=== PATIENT | male | born 1975 | race Two or more races ===

== ENCOUNTER 2017-10-28 11:23 | Inpatient (IN) | payer OTHER ==
[2017-10-28 12:07] VITALS: BMI 25.0
--- NOTE | 2017-10-28 17:51 | HP ---
CIWA Score - CIWA Score Nausea/Vomitin-Mild Nausea/No Vomiting Muscle Tremors: 2 Anxiety: 2 Agitation: 0-Normal Activity Paroxysmal Sweats: 1-Minimal Palms Moist Orientation: 2-Disoriented Date<2 days Tacttile Disturbances: 2-Mild Itch/Numbness/Burn Auditory Disturbances: 0-None Visual Disturbances: 0-None Headache: 2-Mild CIWA-Ar Total Score: 12 Admission ROS S - HPI Chief Complaint: Benzodiazepine/sedative withdrawal symptoms. Allergies/Adverse Reactions: Allergies Allergy/AdvReac Type Severity Reaction Status Date / Time No Known Allergies Allergy Verified 10/28/17 17:11 History of Present Illness: Patient presents with benzodiazepine/sedative withdrawal symptoms. Patient started taking non-prescribed Xanax at age 14. States he takes up to 4mg of Xanax daily. Also smokes Marijuana/K2 1-2 blunts daily and began smoking at age 14. Currently in [facility]. Reports taking MTD 80mg daily. RN verification pending. Patient has history of Hepatitis C (currently on treatment). States he will call to bring Hep C medication. Denies history of seizures from Xanax withdrawal. Unsure of last dose of Xanax. Denies SI/HI and suicide attempts. Exam Limitations: Altered Mental Status - Ebola screening Have you traveled outside of the country in the last 21 days: No Have you had contact with anyone from an Ebola affected area: No Have you been sick,other than usual withdrawal symptoms: No Do you have a fever: No - Review of Systems Constitutional: Night Sweats, Changes in sleep, Unexplained wgt Loss EENT: reports: No Symptoms Reported Respiratory: reports: No Symptoms reported Cardiac: reports: No Symptoms Reported GI: reports: Nausea, Poor Fluid Intake, Abdominal cramping : reports: No Symptoms Reported Musculoskeletal: reports: Back Pain, Muscle Pain Integumentary: reports: Sweating Neuro: reports: Headache, Numbness, Tingling, Tremors Endocrine: reports: Unexplained Weight Loss Hematology: reports: No Symptoms Reported Psychiatric: reports: Anxious, Depressed Patient History - Patient Medical History Hx Anemia: No Hx Asthma: Yes Hx Chronic Obstructive Pulmonary Disease (COPD): No Hx Cancer: No Hx Cardiac Disorders: No Hx Congestive Heart Failure: No Hx Hypertension: No Hx Hypercholesterolemia: No Hx Pacemaker: No HX Cerebrovascular Accident: No Hx Seizures: No Hx Dementia: No Hx Diabetes: No Hx Gastrointestinal Disorders: No Hx Liver Disease: No Hx Genitourinary Disorders: No Hx Sexually Transmitted Disorders: No Hx Renal Disease (ESRD): No Hx Thyroid Disease: No Hx Human Immunodeficiency Virus (HIV): No Hx Hepatitis C: Yes (currently on treatment) Hx Depression: Yes Hx Suicide Attempt: No (denies SI/HI) Hx Bipolar Disorder: No Hx Schizophrenia: No - Patient Surgical History Past Surgical History: No Hx Neurologic Surgery: No Hx Cataract Extraction: No Hx Cardiac Surgery: No Hx Lung Surgery: No Hx Breast Surgery: No Hx Breast Biopsy: No Hx Abdominal Surgery: No Hx Appendectomy: No Hx Cholecystectomy: No Hx Genitourinary Surgery: No Hx Orthopedic Surgery: No Anesthesia Reaction: No - PPD History Previous Implant?: No PPD to be Administered?: Yes - Smoking Cessation Smoking history: Current every day smoker Have you smoked in the past 12 months: Yes Aproximately how many cigarettes per day: 20 Hx Chewing Tobacco Use: No Initiated information on smoking cessation: Yes 'Breaking Loose' booklet given: 10/28/17 - Substance & Tx. History Hx Alcohol Use: No Hx Substance Use: Yes Substance Use Type: Marijuana, Tranquilizers Hx Substance Use Treatment: Yes (2012) - Substances Abused Alprazolam (Xanax) Route: Oral Frequency: Daily Amount used: 3/2MG Age of first use: 18 Date of Last Use: 10/28/17 Marijuana/Hashish Route: Smoking Frequency: Daily Amount used: 2-3 BAGS Age of first use: 18 Date of Last Use: 10/28/17 K2 Route: Smoking Frequency: Daily Amount used: " i DONT kNOW " Age of first use: 32 Date of Last Use: 10/28/17 Family Disease History - Family Disease History Family History: Unable to Obtain Admission Physical Exam BHS - Vital Signs Vital Signs: Vital Signs - 24 hr 10/28/17 11:56 Temperature 97 F L Pulse Rate 60 Respiratory 19 Rate Blood Pressure 99/63 - Physical General Appearance: Yes: Disheveled, Thin, Tremorous, Sweating, Anxious HEENTM: Yes: EOMI, Hearing grossly Normal, Normal ENT Inspection, Normocephalic , Normal Voice, JENNI, Pharynx Normal Respiratory: Yes: Chest Non-Tender, Lungs Clear, Normal Breath Sounds, No Respiratory Distress, No Accessory Muscle Use Neck: Yes: No masses,lesions,Nodules, Supple, Trachea in good position Breast: Yes: Breast Exam Deferred Cardiology: Yes: Regular Rhythm, Regular Rate, S1, S2 Abdominal: Yes: Normal Bowel Sounds, Non Tender, Flat, Soft Genitourinary: Yes: Within Normal Limits Back: Yes: Muscle Spasm Musculoskeletal: Yes: full range of Motion, Back pain, Muscle Pain Extremities: Yes: Normal Inspection, Normal Range of Motion, Non-Tender, Tremors , Swelling Neurological: Yes: awning erector II-XII NML intact, Alert, Motor Strength 5/5, Disoriented , Depressed Affect Integumentary: Yes: Warm, Moist - Diagnostic (1) Sedative, hypnotic or anxiolytic abuse Current Visit: Yes Status: Acute (2) Asthma Current Visit: Yes Status: Chronic (3) Cannabis dependence Current Visit: Yes Status: Active (4) Hepatitis C carrier Current Visit: No Status: Chronic (5) Opioid dependence Current Visit: No Status: Chronic (6) Weight decreased Current Visit: Yes Status: Active Cleared for Admission [facility] - Detox or Rehab [facility] Level of Care: Medically Managed Detox Regimen/Protocol: Valium [facility] Breath Alcohol Content Breath Alcohol Content: 0 Urine Drug Screen - Results Drug Screen Negative: No Urine Drug Screen Results: THC-Marijuana, BZO-Benzodiazepines, MTD-Methadone
[2017-10-28] MEDS ORDERED: MAGNESIUM HYDROX 2400MG/30ML ORAL SUSPENSION 30 ML CUP PO PRN (18:03)
[2017-10-28] MEDS ORDERED: hydrOXYzine PAMOATE 50 MG CAPSULE (FP) PO PRN (18:03)
[2017-10-28] MEDS ORDERED: LOPERAMIDE HCL 2 MG CAPSULE PO PRN (18:03)
[2017-10-28] MEDS ORDERED: ACETAMINOPHEN 325 MG TABLET (FP) PO PRN (18:03)
[2017-10-28] MEDS ORDERED: P-EPHED 60MG/TRIPROLIDI 2.5MG TABLET PO PRN (18:03)
[2017-10-28] MEDS ORDERED: IBUPROFEN 400 MG TABLET (FP) PO PRN (18:03)
[2017-10-28] MEDS ORDERED: MENTHOL/PHENOL 1 EACH UD MM PRN (18:03)
[2017-10-28] MEDS ORDERED: MAGNESIUM CITRATE 300 ML BOTTLE PO PRN (18:03)
[2017-10-28] MEDS ORDERED: MAG HYDROX/AL HYDROX/SIMETH 30 ML UNIT-DOSE CUP PO PRN (18:03)
[2017-10-28] MEDS ORDERED: guaiFENesin/D-METHORPHAN HB 10 ML UNIT-DOSE CUPS PO PRN (18:03)
[2017-10-28] MEDS ORDERED: NICOTINE POLACRILEX 2 MG GUM BC PRN (18:03)
[2017-10-28] MEDS ORDERED: ALBUTEROL SO4 18 GM HFA INHALER IH PRN (18:04)
[2017-10-28] MEDS ORDERED: diazePAM 5 MG TABLET PO ONE (18:45)
[2017-10-28] MEDS: THIAMINE HCL 100 MG TABLET (FP) PO SCH (22:20)
[2017-10-28] MEDS: MELATONIN 5 MG TABLETS PO PRN (22:21)
[2017-10-28] MEDS: diazePAM 5 MG TABLET PO SCH (22:21)
[2017-10-29 01:16] LABS: URINE APPEARANCE TURBID; URINE BLOOD NEGATIVE (NEGATIVE); URINE COLOR YELLOW; URINE GLUCOSE (UA) NEGATIVE (NEGATIVE); URINE KETONE TRACE (NEGATIVE); URINE LEUK ESTERASE NEGATIVE (NEGATIVE); URINE NITRITE NEGATIVE (NEGATIVE); URINE UROBILINOGEN 4.0 E.U/dl mg/dL (0.2-1.0)
[2017-10-29 01:25] LABS: URINE PROTEIN 1+ (NEGATIVE)
[2017-10-29 01:38] LABS: URINE BACTERIA MANY /hpf (NONE SEEN); URINE MUCUS MANY
[2017-10-29 01:52] LABS: AMORP URATES MODERATE /hpf (NONE SEEN)
[2017-10-29] MEDS: diazePAM 5 MG TABLET PO SCH ×3 (06:55→22:17)
[2017-10-29 10:09] LABS: HEMATOCRIT 45.6 % (35.4-49); HEMOGLOBIN 14.9 GM/dL (11.7-16.9); MCH 30.3 pg (25.7-33.7); MCHC 32.6 g/dl (32.0-35.9); MEAN CELL VOLUME 92.9 fl (80-96); MEAN PLT VOLUME 9.4 fl (7.5-11.1); PLATELET COUNT 177 K/MM3 (134-434); RBC 4.91 M/mm3 (4.00-5.60); RDW 14.1 % (11.9-15.9)
[2017-10-29] MEDS: NICOTINE 21 MG/24 HOURS TOPICAL PATCH TD SCH (10:13)
[2017-10-29] MEDS: diazePAM 5 MG TABLET PO PRN ×2 (10:13→17:21)
[2017-10-29] MEDS: METHADONE HCL 40 MG DISPERSABLE TABLET PO SCH (10:13)
[2017-10-29] MEDS: PRENATAL VITAMINS W/ FOLIC ACID TABLET (FP) PO SCH (10:13)
[2017-10-29 10:24] LABS: BLOOD UREA NITROGEN 10 mg/dL (7-18)
[2017-10-29 10:42] LABS: ALBUMIN 2.6 g/dl (3.4-5.0); ALK PHOS 71 U/L (45-117); ANION GAP 3 (8-16); BILIRUBIN,TOTAL 0.4 mg/dL (0.2-1.0); CALCIUM 8.5 mg/dL (8.5-10.1); CHLORIDE 106 mmol/L (98-107); CO2 33 mmol/L (21-32); CREATININE 0.9 mg/dL (0.7-1.3); GLUCOSE,RANDOM 79 mg/dL (74-106); POTASSIUM 4.2 mmol/L (3.5-5.1); SGOT/AST 28 U/L (15-37); SGPT/ALT 36 U/L (12-78); SODIUM 142 mmol/L (136-145); TOT PROT 6.3 g/dl (6.4-8.2)
--- NOTE | 2017-10-29 10:49 | CONSULT ---
[facility] Psychiatric Consult - Data Date of interview: 10/29/17 Admission source: [facility] Identifying data: Patient is a 42 year old single male, without kids, unemployed , homeless, and not receiving financial assistance. This is patient's first admission to [facility]. Patient admitted to for benzodiazepine dependence. Substance Abuse History: Smoking Cessation. Smoking history: Current every day smoker. Have you smoked in the past 12 months: Yes. Aproximately how many cigarettes per day: 20. Hx Chewing Tobacco Use: No. Initiated information on smoking cessation: Yes. 'Breaking Loose' booklet given: 10/28/17. - Substance & Tx. History. Hx Alcohol Use: No. Hx Substance Use: Yes. Substance Use Type : Marijuana, Tranquilizers. Hx Substance Use Treatment: Yes (2012). - Substances Abused. Alprazolam (Xanax). Route: Oral. Frequency: Daily. Amount used: 3/2MG. Age of first use: 18. Date of Last Use: 10/28/17. Marijuana/Hashish. Route: Smoking. Frequency: Daily. Amount used: 2-3 BAGS. Age of first use: 18. Date of Last Use: 10/28/17. K2. Route: Smoking. Frequency: Daily. Amount used: " i DONT kNOW ". Age of first use: 32. Date of Last Use: 10/28/17 Medical History: Asthma, Hep C (In treatment) Psychiatric History: Patient irritable. Pt. reports several psychiatric hospitalizations, most recently two days ago at [facility]. States he was discharged after two days and was not prescribed medications. Pt. denies h/o OPD. Pt. is unreliable. Pharmacy claims reviewed and noted patient was given a prescription of risperdal 2mg and zoloft 50mg. Pt. made aware of his recent prescription then stated " i do not take risperdal or other medication." Pt. agreeable to accepting olive caban. Pt. reports one suicide attempt many years ago. Pt. refusing to elaborate. Pt. currently denies suicidal and homicidal ideation. Physical/Sexual Abuse/Trauma History: Denies. Mental Status Exam - Mental Status Exam Alert and Oriented to: Time, Place, Person Cognitive Function: Good Patient Appearance: Unkempt, Disheveled Mood: Irritable Affect: Mood Congruent Patient Behavior: Uncooperative, Guarded Speech Pattern: Delayed Voice Loudness: Moderately Soft/Quiet Thought Process: Goal Oriented Thought Disorder: Not Present Hallucinations: Denies Suicidal Ideation: Denies Homicidal Ideation: Denies Insight/Judgement: Poor Sleep: Fair Appetite: Fair Muscle strength/Tone: Normal Gait/Station: Normal Psychiatric Findings - Problem List ([place] 1, 2,3) (1) Substance induced mood disorder Current Visit: Yes Status: Acute (2) Cannabis dependence Current Visit: Yes Status: Chronic (3) Sedative, hypnotic or anxiolytic abuse Current Visit: Yes Status: Acute (4) Opioid dependence Current Visit: Yes Status: Acute - Initial Treatment Plan Initial Treatment Plan: Psychoeducation provided. Detoxification provided. Seroquel 50mg qhs ordered. Benefits and side effects discussed. Verbal consent given. Will continue to monitor.
--- NOTE | 2017-10-29 12:03 | PN ---
[facility] CIWA - CIWA Score Nausea/Vomitin-No Nausea/No Vomiting Muscle Tremors: 3 Anxiety: 4-Mod. Anxious/Guarded Agitation: 1-Slight > Activity Paroxysmal Sweats: 3 Orientation: 4Disoriented Place/Person Tacttile Disturbances: 3-Moderate Itch/Numb/Burn Auditory Disturbances: 0-None Visual Disturbances: 0-None Headache: 0-None Present CIWA-Ar Total Score: 18 BHS Progress Note (SOAP) Subjective: Tremors, Interrupted Sleep, Sweating, Fatigue. Objective: PATIENT A & O X 2 (UNCERTAIN ABOUT CURRENT LOCATION). PATIENT OBSERVED AMBULATING ON UNIT. NO ACUTE DISTRESS. 10/29/17 12:02 Vital Signs Temperature 96.6 F L 10/29/17 09:37 Pulse Rate 59 L 10/29/17 09:37 Respiratory Rate 16 10/29/17 09:37 Blood Pressure 121/85 10/29/17 09:37 O2 Sat by Pulse Oximetry (%) Laboratory Tests 10/28/17 10/29/17 10/29/17 22:27 07:00 07:00 WBC 9.0 D RBC 4.91 Hgb 14.9 Hct 45.6 MCV 92.9 MCH 30.3 MCHC 32.6 RDW 14.1 Plt Count 177 MPV 9.4 Sodium 142 Potassium 4.2 Chloride 106 Carbon Dioxide 33 H Anion Gap 3 L BUN 10 D Creatinine 0.9 Creat Clearance w eGFR > 60 Random Glucose 79 D Calcium 8.5 Total Bilirubin 0.4 D AST 28 D ALT 36 D Alkaline Phosphatase 71 Total Protein 6.3 L D Albumin 2.6 L D Urine Color Yellow Urine Appearance Turbid Urine pH 5.0 Ur Specific [place] 1.034 Urine Protein 1+ H Urine Glucose (UA) Negative Urine Ketones Trace H Urine Blood Negative Urine Nitrite Negative Urine Bilirubin 2.0 Urine Urobilinogen 4.0 e.u/dl Ur Leukocyte Esterase Negative Urine WBC (Auto) None Urine RBC (Auto) None Amorphous Urates Moderate Urine Bacteria Many Urine Mucus Many HIV 1&2 Antibody Screen HIV P24 Antigen 10/29/17 07:00 WBC RBC Hgb Hct MCV MCH MCHC RDW Plt Count MPV Sodium Potassium Chloride Carbon Dioxide Anion Gap BUN Creatinine Creat Clearance w eGFR Random Glucose Calcium Total Bilirubin AST ALT Alkaline Phosphatase Total Protein Albumin Urine Color Urine Appearance Urine pH Ur Specific [place] Urine Protein Urine Glucose (UA) Urine Ketones Urine Blood Urine Nitrite Urine Bilirubin Urine Urobilinogen Ur Leukocyte Esterase Urine WBC (Auto) Urine RBC (Auto) Amorphous Urates Urine Bacteria Urine Mucus HIV 1&2 Antibody Screen Negative HIV P24 Antigen Negative LABS NOTED. RPR RESULT PENDING. 10/29/17 12:03 Assessment: 10/29/17 12:02 WITHDRAWAL SYMPTOMS. Plan: CONTINUE DETOX. INCREASE DAILY PO FLUID INTAKE.
--- NOTE | 2017-10-29 13:35 | EKG ---
Test Reason : Blood Pressure : / mmHG Vent. Rate : 054 BPM Atrial Rate : 054 BPM P-R Int : 128 ms QRS Dur : 102 ms QT Int : 460 ms P-R-T Axes : 069 044 034 degrees QTc Int : 436 ms SINUS BRADYCARDIA RSR' OR QR PATTERN IN V1 SUGGESTS RIGHT VENTRICULAR CONDUCTION DELAY BORDERLINE ECG NO PREVIOUS ECGS AVAILABLE Confirmed by MELISSA WALTER MD ([id number]) on 10/29/2017 1:35:04 PM Referred By: Confirmed By:MELISSA WALTER MD
[2017-10-29] MEDS: PATIENT'S OWN MEDICATION (NON-FORMULARY) (Glecaprevir/Pibrentasvir [Mavyret 100-40 Mg Tabl PO SCH (18:46)
[2017-10-29] MEDS: QUEtiapine FUMARATE 50 MG TABLET PO SCH (22:17)
[2017-10-29] MEDS: THIAMINE HCL 100 MG TABLET (FP) PO SCH (22:17)
[2017-10-30] MEDS: diazePAM 5 MG TABLET PO PRN (06:59)
[2017-10-30] MEDS: METHADONE HCL 40 MG DISPERSABLE TABLET PO SCH (06:59)
[2017-10-30] MEDS: PRENATAL VITAMINS W/ FOLIC ACID TABLET (FP) PO SCH (10:04)
[2017-10-30] MEDS: PATIENT'S OWN MEDICATION (NON-FORMULARY) (Glecaprevir/Pibrentasvir [Mavyret 100-40 Mg Tabl PO SCH (10:04)
[2017-10-30] MEDS: NICOTINE 21 MG/24 HOURS TOPICAL PATCH TD SCH (10:04)
[2017-10-30] MEDS: diazePAM 5 MG TABLET PO SCH ×2 (10:04→22:21)
--- NOTE | 2017-10-30 12:15 | PN ---
[facility] CIWA - CIWA Score Nausea/Vomitin-No Nausea/No Vomiting Muscle Tremors: None Anxiety: 4-Mod. Anxious/Guarded Agitation: 3 Paroxysmal Sweats: 3 Orientation: 0-Oriented Tacttile Disturbances: 2-Mild Itch/Numbness/Burn Auditory Disturbances: 1-Very Mild Visual Disturbances: 2-Mild Sensitivity Headache: 0-None Present CIWA-Ar Total Score: 15 S Progress Note (SOAP) Subjective: Fatigue, Body Aches, Anxious. Objective: PATIENT A & O X 1 (UNCERTAIN ABOUT CURRENT DAY / DATE AND ABOUT CURRENT LOCATION ). PATIENT OBSERVED AMBULATING ON UNIT. NO ACUTE DISTRESS. 10/30/17 12:15 Vital Signs Temperature 98.4 F 10/30/17 09:02 Pulse Rate 58 L 10/30/17 09:02 Respiratory Rate 18 10/30/17 09:02 Blood Pressure 90/64 10/30/17 09:02 O2 Sat by Pulse Oximetry (%) Laboratory Tests 10/28/17 10/29/17 10/29/17 22:27 07:00 07:00 WBC 9.0 D RBC 4.91 Hgb 14.9 Hct 45.6 MCV 92.9 MCH 30.3 MCHC 32.6 RDW 14.1 Plt Count 177 MPV 9.4 Sodium 142 Potassium 4.2 Chloride 106 Carbon Dioxide 33 H Anion Gap 3 L BUN 10 D Creatinine 0.9 Creat Clearance w eGFR > 60 Random Glucose 79 D Calcium 8.5 Total Bilirubin 0.4 D AST 28 D ALT 36 D Alkaline Phosphatase 71 Total Protein 6.3 L D Albumin 2.6 L D Urine Color Yellow Urine Appearance Turbid Urine pH 5.0 Ur Specific [place] 1.034 Urine Protein 1+ H Urine Glucose (UA) Negative Urine Ketones Trace H Urine Blood Negative Urine Nitrite Negative Urine Bilirubin 2.0 Urine Urobilinogen 4.0 e.u/dl Ur Leukocyte Esterase Negative Urine WBC (Auto) None Urine RBC (Auto) None Amorphous Urates Moderate Urine Bacteria Many Urine Mucus Many RPR Titer HIV 1&2 Antibody Screen HIV P24 Antigen 10/29/17 10/29/17 07:00 07:00 WBC RBC Hgb Hct MCV MCH MCHC RDW Plt Count MPV Sodium Potassium Chloride Carbon Dioxide Anion Gap BUN Creatinine Creat Clearance w eGFR Random Glucose Calcium Total Bilirubin AST ALT Alkaline Phosphatase Total Protein Albumin Urine Color Urine Appearance Urine pH Ur Specific [place] Urine Protein Urine Glucose (UA) Urine Ketones Urine Blood Urine Nitrite Urine Bilirubin Urine Urobilinogen Ur Leukocyte Esterase Urine WBC (Auto) Urine RBC (Auto) Amorphous Urates Urine Bacteria Urine Mucus RPR Titer Nonreactive HIV 1&2 Antibody Screen Negative HIV P24 Antigen Negative LABS NOTED. Assessment: 10/30/17 12:17 WITHDRAWAL SYMPTOMS. Plan: CONTINUE DETOX.
[2017-10-30] MEDS: QUEtiapine FUMARATE 50 MG TABLET PO SCH (22:21)
[2017-10-30] MEDS: THIAMINE HCL 100 MG TABLET (FP) PO SCH (22:21)
[2017-10-31] MEDS: METHADONE HCL 40 MG DISPERSABLE TABLET PO SCH (05:13)
[2017-10-31] MEDS: diazePAM 5 MG TABLET PO PRN (06:18)
[2017-10-31] MEDS: diazePAM 5 MG TABLET PO SCH ×2 (10:14→22:06)
[2017-10-31] MEDS: NICOTINE 21 MG/24 HOURS TOPICAL PATCH TD SCH (10:14)
[2017-10-31] MEDS: PRENATAL VITAMINS W/ FOLIC ACID TABLET (FP) PO SCH (10:14)
[2017-10-31] MEDS: PATIENT'S OWN MEDICATION (NON-FORMULARY) (Glecaprevir/Pibrentasvir [Mavyret 100-40 Mg Tabl PO SCH (10:14)
--- NOTE | 2017-10-31 14:20 | PN ---
BHS Progress Note (SOAP) Subjective: Sweating, Fatigue, Anxious. Objective: PATIENT A & O X 3, OBSERVED AMBULATING ON UNIT. NO ACUTE DISTRESS. 10/31/17 14:18 Vital Signs Temperature 97 F L 10/31/17 13:49 Pulse Rate 70 10/31/17 13:49 Respiratory Rate 16 10/31/17 13:49 Blood Pressure 97/65 10/31/17 13:49 O2 Sat by Pulse Oximetry (%) Laboratory Tests 10/28/17 10/29/17 10/29/17 22:27 07:00 07:00 WBC 9.0 D RBC 4.91 Hgb 14.9 Hct 45.6 MCV 92.9 MCH 30.3 MCHC 32.6 RDW 14.1 Plt Count 177 MPV 9.4 Sodium 142 Potassium 4.2 Chloride 106 Carbon Dioxide 33 H Anion Gap 3 L BUN 10 D Creatinine 0.9 Creat Clearance w eGFR > 60 Random Glucose 79 D Calcium 8.5 Total Bilirubin 0.4 D AST 28 D ALT 36 D Alkaline Phosphatase 71 Total Protein 6.3 L D Albumin 2.6 L D Urine Color Yellow Urine Appearance Turbid Urine pH 5.0 Ur Specific [place] 1.034 Urine Protein 1+ H Urine Glucose (UA) Negative Urine Ketones Trace H Urine Blood Negative Urine Nitrite Negative Urine Bilirubin 2.0 Urine Urobilinogen 4.0 e.u/dl Ur Leukocyte Esterase Negative Urine WBC (Auto) None Urine RBC (Auto) None Amorphous Urates Moderate Urine Bacteria Many Urine Mucus Many RPR Titer HIV 1&2 Antibody Screen HIV P24 Antigen 10/29/17 10/29/17 07:00 07:00 WBC RBC Hgb Hct MCV MCH MCHC RDW Plt Count MPV Sodium Potassium Chloride Carbon Dioxide Anion Gap BUN Creatinine Creat Clearance w eGFR Random Glucose Calcium Total Bilirubin AST ALT Alkaline Phosphatase Total Protein Albumin Urine Color Urine Appearance Urine pH Ur Specific [place] Urine Protein Urine Glucose (UA) Urine Ketones Urine Blood Urine Nitrite Urine Bilirubin Urine Urobilinogen Ur Leukocyte Esterase Urine WBC (Auto) Urine RBC (Auto) Amorphous Urates Urine Bacteria Urine Mucus RPR Titer Nonreactive HIV 1&2 Antibody Screen Negative HIV P24 Antigen Negative LABS NOTED. Assessment: 10/31/17 14:18 WITHDRAWAL SYMPTOMS. Plan: CONTINUE DETOX. INCREASE DAILY PO FLUID INTAKE. ENCOURAGE AMBULATION.
[2017-10-31] MEDS: QUEtiapine FUMARATE 50 MG TABLET PO SCH (22:06)
[2017-10-31] MEDS: MELATONIN 5 MG TABLETS PO PRN (22:07)
[2017-10-31] MEDS: THIAMINE HCL 100 MG TABLET (FP) PO SCH (22:07)
[2017-11-01] MEDS: METHADONE HCL 40 MG DISPERSABLE TABLET PO SCH (06:14)
[2017-11-01 09:29] VITALS: BP 104/67; PULSE 70; TEMP 96.7
[2017-11-01] MEDS ORDERED: diazePAM 5 MG TABLET PO SCH (10:00)
[2017-11-01] MEDS: PRENATAL VITAMINS W/ FOLIC ACID TABLET (FP) PO SCH (10:03)
[2017-11-01] MEDS: PATIENT'S OWN MEDICATION (NON-FORMULARY) (Glecaprevir/Pibrentasvir [Mavyret 100-40 Mg Tabl PO SCH (10:03)
[2017-11-01] MEDS: NICOTINE 21 MG/24 HOURS TOPICAL PATCH TD SCH (10:04)
--- NOTE | 2017-11-01 13:04 | PN ---
S Progress Note (SOAP) Subjective: Patient reports that he feels somewhat anxious, but denies any other Detox symptoms at this time. Objective: PATIENT A & O X 3, OBSERVED AMBULATING ON UNIT. NO ACUTE DISTRESS. 11/01/17 13:03 Vital Signs Temperature 96.7 F L 11/01/17 09:28 Pulse Rate 70 11/01/17 09:28 Respiratory Rate 18 11/01/17 09:28 Blood Pressure 104/67 11/01/17 09:28 O2 Sat by Pulse Oximetry (%) Laboratory Tests 10/28/17 10/29/17 10/29/17 22:27 07:00 07:00 WBC 9.0 D RBC 4.91 Hgb 14.9 Hct 45.6 MCV 92.9 MCH 30.3 MCHC 32.6 RDW 14.1 Plt Count 177 MPV 9.4 Sodium 142 Potassium 4.2 Chloride 106 Carbon Dioxide 33 H Anion Gap 3 L BUN 10 D Creatinine 0.9 Creat Clearance w eGFR > 60 Random Glucose 79 D Calcium 8.5 Total Bilirubin 0.4 D AST 28 D ALT 36 D Alkaline Phosphatase 71 Total Protein 6.3 L D Albumin 2.6 L D Urine Color Yellow Urine Appearance Turbid Urine pH 5.0 Ur Specific [place] 1.034 Urine Protein 1+ H Urine Glucose (UA) Negative Urine Ketones Trace H Urine Blood Negative Urine Nitrite Negative Urine Bilirubin 2.0 Urine Urobilinogen 4.0 e.u/dl Ur Leukocyte Esterase Negative Urine WBC (Auto) None Urine RBC (Auto) None Amorphous Urates Moderate Urine Bacteria Many Urine Mucus Many RPR Titer HIV 1&2 Antibody Screen HIV P24 Antigen 10/29/17 10/29/17 07:00 07:00 WBC RBC Hgb Hct MCV MCH MCHC RDW Plt Count MPV Sodium Potassium Chloride Carbon Dioxide Anion Gap BUN Creatinine Creat Clearance w eGFR Random Glucose Calcium Total Bilirubin AST ALT Alkaline Phosphatase Total Protein Albumin Urine Color Urine Appearance Urine pH Ur Specific [place] Urine Protein Urine Glucose (UA) Urine Ketones Urine Blood Urine Nitrite Urine Bilirubin Urine Urobilinogen Ur Leukocyte Esterase Urine WBC (Auto) Urine RBC (Auto) Amorphous Urates Urine Bacteria Urine Mucus RPR Titer Nonreactive HIV 1&2 Antibody Screen Negative HIV P24 Antigen Negative LABS NOTED. Assessment: 11/01/17 13:03 COMPLETION OF DETOX REGIMEN. Plan: PATIENT SCHEDULED FOR DISCHARGE FROM DETOX UNIT TODAY. PATIENT SCHEDULED TO GO ON TO [facility] ([place]) FOR AFTERCARE.
--- NOTE | 2017-11-01 13:11 | DS ---
[facility] Detox Discharge Summary Admission Date: 10/28/17 Discharge Date: 11/01/17 - History Present History: Cannabis Dependence, Opioid Dependence, Sedative Dependence Additional Comments: PATIENT GOING ON TO [facility] ([place]) FOR AFTERCARE. PATIENT WAS DISCHARGED FROM DETOX UNIT TO BE TAKEN OVER TO REHAB IN STABLE MEDICAL CONDITION. Pertinent Past History: Asthma, Hep C, Depression, Weight Loss. - Physical Exam Results Vital Signs: Vital Signs Temperature 96.7 F L 11/01/17 09:28 Pulse Rate 70 11/01/17 09:28 Respiratory Rate 18 11/01/17 09:28 Blood Pressure 104/67 11/01/17 09:28 O2 Sat by Pulse Oximetry (%) Pertinent Admission Physical Exam Findings: WITHDRAWAL SYMPTOMS. Laboratory Tests 10/28/17 10/29/17 10/29/17 22:27 07:00 07:00 WBC 9.0 D RBC 4.91 Hgb 14.9 Hct 45.6 MCV 92.9 MCH 30.3 MCHC 32.6 RDW 14.1 Plt Count 177 MPV 9.4 Sodium 142 Potassium 4.2 Chloride 106 Carbon Dioxide 33 H Anion Gap 3 L BUN 10 D Creatinine 0.9 Creat Clearance w eGFR > 60 Random Glucose 79 D Calcium 8.5 Total Bilirubin 0.4 D AST 28 D ALT 36 D Alkaline Phosphatase 71 Total Protein 6.3 L D Albumin 2.6 L D Urine Color Yellow Urine Appearance Turbid Urine pH 5.0 Ur Specific [place] 1.034 Urine Protein 1+ H Urine Glucose (UA) Negative Urine Ketones Trace H Urine Blood Negative Urine Nitrite Negative Urine Bilirubin 2.0 Urine Urobilinogen 4.0 e.u/dl Ur Leukocyte Esterase Negative Urine WBC (Auto) None Urine RBC (Auto) None Amorphous Urates Moderate Urine Bacteria Many Urine Mucus Many RPR Titer HIV 1&2 Antibody Screen HIV P24 Antigen 10/29/17 10/29/17 07:00 07:00 WBC RBC Hgb Hct MCV MCH MCHC RDW Plt Count MPV Sodium Potassium Chloride Carbon Dioxide Anion Gap BUN Creatinine Creat Clearance w eGFR Random Glucose Calcium Total Bilirubin AST ALT Alkaline Phosphatase Total Protein Albumin Urine Color Urine Appearance Urine pH Ur Specific [place] Urine Protein Urine Glucose (UA) Urine Ketones Urine Blood Urine Nitrite Urine Bilirubin Urine Urobilinogen Ur Leukocyte Esterase Urine WBC (Auto) Urine RBC (Auto) Amorphous Urates Urine Bacteria Urine Mucus RPR Titer Nonreactive HIV 1&2 Antibody Screen Negative HIV P24 Antigen Negative LABS NOTED. - Treatment Hospital Course: Detox Protocol Followed, Detoxed Safely, Responded well, Discharged Condition Good, Rehab Referral Accepted Patient has Accepted a Rehab Referral to: [facility] ([place], [place] . - Medication Discharge Medications: Ambulatory Orders Albuterol Sulfate Inhaler - [Ventolin Hfa *Inhaler*] 2 inh IH Q4H PRN 11/27/12 Glecaprevir/Pibrentasvir [Mavyret 100-40 mg Tablet] 3 tab PO DAILY 10/29/17 - Diagnosis (1) Uncomplicated opioid dependence Current Visit: Yes Status: Chronic (2) Cannabis dependence Current Visit: Yes Status: Chronic (3) Weight decreased Current Visit: Yes Status: Active (4) Sedative, hypnotic or anxiolytic abuse Current Visit: Yes Status: Acute (5) Asthma Current Visit: Yes Status: Chronic (6) Hepatitis C carrier Current Visit: Yes Status: Chronic (7) Substance induced mood disorder Current Visit: Yes Status: Acute - AMA Did Patient Leave Against Medical Advice: No
--- NOTE | 2017-11-01 22:49 | EKG ---
Test Reason : Blood Pressure : / mmHG Vent. Rate : 058 BPM Atrial Rate : 058 BPM P-R Int : 138 ms QRS Dur : 090 ms QT Int : 414 ms P-R-T Axes : 080 049 043 degrees QTc Int : 406 ms SINUS BRADYCARDIA WITH WITH SINUS ARRHYTHMIA OTHERWISE NORMAL ECG Confirmed by DIPTI LANE MD ([id number] on 11/01/2017 10:48:29 PM Referred By: Confirmed By:DIPTI LANE MD
== END 2017-11-01 13:25 | disposition other institution (70) | DRG 773 ==
LOC: YASAS 11:23 → Y3N 18:29
PROVIDERS: ADMIT Internal Medicine; ATTEND Internal Medicine
PROC: HZ2ZZZZ Detoxification Services for Substance Abuse Treatment (ICD-10-PCS; principal; 2017-10-28)
DX: F11.23 Opioid dependence with withdrawal (principal); F12.20 Cannabis dependence, uncomplicated; F13.10 Sedative, hypnotic or anxiolytic abuse, uncomplicated; F17.210 Nicotine dependence, cigarettes, uncomplicated; F19.24 Other psychoactive substance dependence with psychoactive substance-induced mood disorder; J45.909 Unspecified asthma, uncomplicated; B18.2 Chronic viral hepatitis C; Z87.898 Personal history of other specified conditions
CPT/HCPCS: 36415; 71046-TC-FY; 80053; 81003; 81015; 85027; 86593; 87389; 93005; 93010

== ENCOUNTER 2017-11-01 14:54 | Inpatient (IN) | payer OTHER ==
[2017-11-01] MEDS ORDERED: ACETAMINOPHEN 325 MG TABLET (FP) PO PRN (15:14)
[2017-11-01] MEDS ORDERED: NICOTINE POLACRILEX 2 MG GUM BUC PRN (15:14)
[2017-11-01] MEDS ORDERED: LOPERAMIDE HCL 2 MG CAPSULE PO PRN (15:14)
[2017-11-01] MEDS ORDERED: MENTHOL/PHENOL 1 EACH UD MM PRN (15:14)
[2017-11-01] MEDS ORDERED: guaiFENesin/D-METHORPHAN HB 10 ML UNIT-DOSE CUPS PO PRN (15:14)
[2017-11-01] MEDS ORDERED: MAGNESIUM CITRATE 300 ML BOTTLE PO PRN (15:14)
[2017-11-01] MEDS ORDERED: IBUPROFEN 400 MG TABLET (FP) PO PRN (15:14)
[2017-11-01] MEDS ORDERED: P-EPHED 60MG/TRIPROLIDI 2.5MG TABLET PO PRN (15:14)
[2017-11-01] MEDS ORDERED: MAGNESIUM HYDROX 2400MG/30ML ORAL SUSPENSION 30 ML CUP PO PRN (15:14)
[2017-11-01] MEDS ORDERED: MAG HYDROX/AL HYDROX/SIMETH 30 ML UNIT-DOSE CUP PO PRN (15:14)
[2017-11-01] MEDS ORDERED: ALBUTEROL SO4 18 GM HFA INHALER IH PRN (15:15)
--- NOTE | 2017-11-01 15:16 | HP ---
[facility] Rehab Assess/Revision - Admission History Admitted to Rehab from: [facility] Date of Admission to Rehab: 11/01/2017 - Vital signs Vital Signs: NOTED; STABLE. - Findings Detox History & Physical reviewed: Yes Concur with findings: Yes Comments/Additional Findings: PATIENT'S MEDICAL / MEDICATION HISTORY REVIEWED PRIOR TO DISCHARGE FROM DETOX UNIT. PATIENT WAS DISCHARGED FROM DETOX UNIT TO BE TAKEN TO REHAB UNIT IN STABLE MEDICAL CONDITION. Inpatient Rehab Admission - Initial Determination Are CD services needed?: Yes Free of communicable disease: Yes Not in need of hospitalization: Yes - Rehab Admission Criteria Previous failed treatment: Yes Comorbidities: Yes Patient is meeting Inpatient Rehab admission criteria:: Yes
[2017-11-01] MEDS: THIAMINE HCL 100 MG TABLET (FP) PO SCH (21:16)
[2017-11-01] MEDS ORDERED: QUEtiapine FUMARATE 50 MG TABLET PO ONE (22:00)
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
[2017-11-02] MEDS: METHADONE HCL 40 MG DISPERSABLE TABLET PO SCH (09:17)
[2017-11-02] MEDS: PRENATAL VITAMINS W/ FOLIC ACID TABLET (FP) PO SCH (09:17)
[2017-11-02] MEDS: NICOTINE 21 MG/24 HOURS TOPICAL PATCH TD SCH (09:18)
[2017-11-02] MEDS: PATIENT'S OWN MEDICATION (NON-FORMULARY) (Glecaprevir/Pibrentasvir [Mavyret 100-40 Mg Tabl PO SCH (10:49)
[2017-11-02] MEDS: risperiDONE 2 MG TABLET PO SCH (12:10)
[2017-11-02] MEDS: SERTRALINE HCL 50 MG TABLET (FP) PO SCH (12:10)
[2017-11-02] MEDS ORDERED: PT OWN MED DRAWER 7, Y5N ONE (16:04)
[2017-11-02] MEDS: traZODone HCL 100 MG TABLET (FP) PO SCH (21:32)
[2017-11-02] MEDS: THIAMINE HCL 100 MG TABLET (FP) PO SCH (21:32)
[2017-11-03] MEDS: METHADONE HCL 40 MG DISPERSABLE TABLET PO SCH (06:08)
[2017-11-03] MEDS: PRENATAL VITAMINS W/ FOLIC ACID TABLET (FP) PO SCH (09:33)
[2017-11-03] MEDS: risperiDONE 2 MG TABLET PO SCH (09:33)
[2017-11-03] MEDS: PATIENT'S OWN MEDICATION (NON-FORMULARY) (Glecaprevir/Pibrentasvir [Mavyret 100-40 Mg Tabl PO SCH (09:33)
[2017-11-03] MEDS: SERTRALINE HCL 50 MG TABLET (FP) PO SCH (09:33)
[2017-11-03] MEDS: NICOTINE 21 MG/24 HOURS TOPICAL PATCH TD SCH (09:34)
[2017-11-03] MEDS ORDERED: PT OWN MED DRAWER 7, Y5N ONE (11:37)
--- NOTE | 2017-11-03 16:15 | PN ---
BHS Progress Note Note: hx HIV+ c/o of nerve pain on both lower extremities. Patient was prior tx with neurontin 300 TID around 6 months ago. Home medication list hx reviewed last rx 05/17/17. Vital Signs Temperature 97.8 F 11/03/17 07:00 Pulse Rate 74 11/03/17 07:00 Respiratory Rate 18 11/03/17 07:00 Blood Pressure 114/81 11/03/17 07:00 O2 Sat by Pulse Oximetry (%) Start Gabapentin 100mg TID continue to monitor
[2017-11-03] MEDS: traZODone HCL 100 MG TABLET (FP) PO SCH (22:05)
[2017-11-03] MEDS: THIAMINE HCL 100 MG TABLET (FP) PO SCH (22:05)
[2017-11-03] MEDS: GABAPENTIN 100 MG CAPSULE (FP) PO SCH (22:05)
[2017-11-04] MEDS: METHADONE HCL 40 MG DISPERSABLE TABLET PO SCH (06:01)
[2017-11-04] MEDS: GABAPENTIN 100 MG CAPSULE (FP) PO SCH ×3 (06:01→21:51)
[2017-11-04] MEDS ORDERED: PT OWN MED DRAWER 7, Y5N ONE (08:52)
[2017-11-04] MEDS: NICOTINE 21 MG/24 HOURS TOPICAL PATCH TD SCH (10:27)
[2017-11-04] MEDS: PRENATAL VITAMINS W/ FOLIC ACID TABLET (FP) PO SCH (10:28)
[2017-11-04] MEDS: SERTRALINE HCL 50 MG TABLET (FP) PO SCH (10:28)
[2017-11-04] MEDS: PATIENT'S OWN MEDICATION (NON-FORMULARY) (Glecaprevir/Pibrentasvir [Mavyret 100-40 Mg Tabl PO SCH (10:28)
[2017-11-04] MEDS: risperiDONE 2 MG TABLET PO SCH (10:28)
[2017-11-04] MEDS: THIAMINE HCL 100 MG TABLET (FP) PO SCH (21:50)
[2017-11-04] MEDS: traZODone HCL 100 MG TABLET (FP) PO SCH (21:50)
[2017-11-05] MEDS: GABAPENTIN 100 MG CAPSULE (FP) PO SCH ×2 (06:53→15:10)
[2017-11-05] MEDS: METHADONE HCL 40 MG DISPERSABLE TABLET PO SCH (06:53)
[2017-11-05] MEDS: SERTRALINE HCL 50 MG TABLET (FP) PO SCH (10:18)
[2017-11-05] MEDS: PRENATAL VITAMINS W/ FOLIC ACID TABLET (FP) PO SCH (10:18)
[2017-11-05] MEDS: PATIENT'S OWN MEDICATION (NON-FORMULARY) (Glecaprevir/Pibrentasvir [Mavyret 100-40 Mg Tabl PO SCH (10:18)
[2017-11-05] MEDS: risperiDONE 2 MG TABLET PO SCH (10:18)
[2017-11-05] MEDS: NICOTINE 21 MG/24 HOURS TOPICAL PATCH TD SCH (10:18)
[2017-11-05] MEDS ORDERED: GABAPENTIN 300 MG CAPSULE (FP) PO SCH (14:15)
[2017-11-05] MEDS ORDERED: PT OWN MED DRAWER 7, Y5N ONE (14:20)
[2017-11-05] MEDS: GABAPENTIN 300 MG CAPSULE (FP) PO SCH ×2 (14:47→21:07)
[2017-11-05] MEDS: THIAMINE HCL 100 MG TABLET (FP) PO SCH (21:07)
[2017-11-05] MEDS: MELATONIN 5 MG TABLETS PO PRN (21:07)
[2017-11-05] MEDS: traZODone HCL 100 MG TABLET (FP) PO SCH (21:07)
[2017-11-06] MEDS: GABAPENTIN 300 MG CAPSULE (FP) PO SCH ×3 (06:23→21:52)
[2017-11-06] MEDS: METHADONE HCL 40 MG DISPERSABLE TABLET PO SCH (06:23)
[2017-11-06] MEDS ORDERED: PT OWN MED DRAWER 7, Y5N ONE (09:24)
[2017-11-06] MEDS: PATIENT'S OWN MEDICATION (NON-FORMULARY) (Glecaprevir/Pibrentasvir [Mavyret 100-40 Mg Tabl PO SCH (10:05)
[2017-11-06] MEDS: NICOTINE 21 MG/24 HOURS TOPICAL PATCH TD SCH (10:06)
[2017-11-06] MEDS: risperiDONE 2 MG TABLET PO SCH (10:06)
[2017-11-06] MEDS: PRENATAL VITAMINS W/ FOLIC ACID TABLET (FP) PO SCH (10:06)
[2017-11-06] MEDS: SERTRALINE HCL 50 MG TABLET (FP) PO SCH (10:06)
[2017-11-06] MEDS: THIAMINE HCL 100 MG TABLET (FP) PO SCH (21:52)
[2017-11-06] MEDS: traZODone HCL 100 MG TABLET (FP) PO SCH (21:52)
[2017-11-06] MEDS: MELATONIN 5 MG TABLETS PO PRN (21:53)
[2017-11-07] MEDS: METHADONE HCL 40 MG DISPERSABLE TABLET PO SCH (06:27)
[2017-11-07] MEDS: GABAPENTIN 300 MG CAPSULE (FP) PO SCH ×3 (06:27→21:43)
[2017-11-07] MEDS ORDERED: PT OWN MED DRAWER 7, Y5N ONE (08:53)
[2017-11-07] MEDS: SERTRALINE HCL 50 MG TABLET (FP) PO SCH (10:06)
[2017-11-07] MEDS: risperiDONE 2 MG TABLET PO SCH (10:06)
[2017-11-07] MEDS: PATIENT'S OWN MEDICATION (NON-FORMULARY) (Glecaprevir/Pibrentasvir [Mavyret 100-40 Mg Tabl PO SCH (10:06)
[2017-11-07] MEDS: NICOTINE 21 MG/24 HOURS TOPICAL PATCH TD SCH (10:06)
[2017-11-07] MEDS: PRENATAL VITAMINS W/ FOLIC ACID TABLET (FP) PO SCH (10:06)
[2017-11-07] MEDS: traZODone HCL 100 MG TABLET (FP) PO SCH (21:43)
[2017-11-07] MEDS: MELATONIN 5 MG TABLETS PO PRN (21:43)
[2017-11-07] MEDS: THIAMINE HCL 100 MG TABLET (FP) PO SCH (21:43)
[2017-11-08] MEDS: GABAPENTIN 300 MG CAPSULE (FP) PO SCH ×3 (06:17→21:22)
[2017-11-08] MEDS: METHADONE HCL 40 MG DISPERSABLE TABLET PO SCH (06:17)
[2017-11-08] MEDS ORDERED: PT OWN MED DRAWER 7, Y5N ONE (08:50)
[2017-11-08] MEDS: PATIENT'S OWN MEDICATION (NON-FORMULARY) (Glecaprevir/Pibrentasvir [Mavyret 100-40 Mg Tabl PO SCH (10:15)
[2017-11-08] MEDS: PRENATAL VITAMINS W/ FOLIC ACID TABLET (FP) PO SCH (10:15)
[2017-11-08] MEDS: SERTRALINE HCL 50 MG TABLET (FP) PO SCH (10:15)
[2017-11-08] MEDS: risperiDONE 2 MG TABLET PO SCH (10:15)
[2017-11-08] MEDS: NICOTINE 21 MG/24 HOURS TOPICAL PATCH TD SCH (10:16)
[2017-11-08] MEDS: hydrOXYzine PAMOATE 50 MG CAPSULE (FP) PO PRN (19:08)
[2017-11-08] MEDS: MELATONIN 5 MG TABLETS PO PRN (21:22)
[2017-11-08] MEDS: traZODone HCL 100 MG TABLET (FP) PO SCH (21:22)
[2017-11-08] MEDS: THIAMINE HCL 100 MG TABLET (FP) PO SCH (21:22)
[2017-11-09] MEDS: GABAPENTIN 300 MG CAPSULE (FP) PO SCH ×3 (06:39→21:25)
[2017-11-09] MEDS: METHADONE HCL 40 MG DISPERSABLE TABLET PO SCH ×2 (06:39→06:41)
[2017-11-09] MEDS: NICOTINE 21 MG/24 HOURS TOPICAL PATCH TD SCH (10:16)
[2017-11-09] MEDS: PRENATAL VITAMINS W/ FOLIC ACID TABLET (FP) PO SCH (10:16)
[2017-11-09] MEDS: risperiDONE 2 MG TABLET PO SCH (10:16)
[2017-11-09] MEDS: SERTRALINE HCL 50 MG TABLET (FP) PO SCH (10:16)
[2017-11-09] MEDS: PATIENT'S OWN MEDICATION (NON-FORMULARY) (Glecaprevir/Pibrentasvir [Mavyret 100-40 Mg Tabl PO SCH (10:17)
[2017-11-09] MEDS: THIAMINE HCL 100 MG TABLET (FP) PO SCH (21:25)
[2017-11-09] MEDS: traZODone HCL 100 MG TABLET (FP) PO SCH (21:25)
[2017-11-10] MEDS: METHADONE HCL 40 MG DISPERSABLE TABLET PO SCH (06:27)
[2017-11-10] MEDS: GABAPENTIN 300 MG CAPSULE (FP) PO SCH ×3 (06:27→21:52)
[2017-11-10 07:10] VITALS: TEMP 97.9
[2017-11-10] MEDS: risperiDONE 2 MG TABLET PO SCH (09:39)
[2017-11-10] MEDS: NICOTINE 21 MG/24 HOURS TOPICAL PATCH TD SCH (09:39)
[2017-11-10] MEDS: SERTRALINE HCL 50 MG TABLET (FP) PO SCH (09:39)
[2017-11-10] MEDS: PATIENT'S OWN MEDICATION (NON-FORMULARY) (Glecaprevir/Pibrentasvir [Mavyret 100-40 Mg Tabl PO SCH (09:39)
[2017-11-10] MEDS: PRENATAL VITAMINS W/ FOLIC ACID TABLET (FP) PO SCH (09:39)
[2017-11-10] MEDS: THIAMINE HCL 100 MG TABLET (FP) PO SCH (21:52)
[2017-11-10] MEDS: traZODone HCL 100 MG TABLET (FP) PO SCH (21:52)
[2017-11-10] MEDS: MELATONIN 5 MG TABLETS PO PRN (21:54)
[2017-11-10] MEDS: hydrOXYzine PAMOATE 50 MG CAPSULE (FP) PO PRN (21:54)
[2017-11-11] MEDS: GABAPENTIN 300 MG CAPSULE (FP) PO SCH ×3 (06:33→21:42)
[2017-11-11] MEDS: METHADONE HCL 40 MG DISPERSABLE TABLET PO SCH (06:33)
[2017-11-11 07:10] VITALS: BP 115/88; PULSE 82
--- NOTE | 2017-11-11 09:32 | PN ---
Psychiatric Progress Note Vital Signs: Vital Signs Period Temp Pulse Resp BP Sys/Roque Pulse Ox Last 24 Hr 97.9 F 82 16-18 115/88 Date of Session: 11/11/17 Chief Complaint:: Discharge Note HPI: Patient addressing Sedative, Hypnotic or Anxiolytic and Cannabis Dependence comorbid with Opioid Dependence on Agonist Therapy, Nicotine Dependence, Substance-Induced Mood Disorder and Substance-Induced Sleep Disorder ROS: Asthma, Hep C Current Medications: Active Medications Generic Name Dose Route Start Last Admin Trade Name Freq PRN Reason Stop Dose Admin Acetaminophen 650 mg 11/01/17 15:14 Tylenol - PO Q4H PRN FEVER Al Hydroxide/Mg Hydroxide 30 ml 11/01/17 15:14 Mylanta Oral Suspension - PO Q6H PRN DYSPEPSIA Albuterol Sulfate 2 puff 11/01/17 15:15 Ventolin Hfa Inhaler - IH Q4H PRN ASTHMA Eucalyptus/Menthol/Phenol/Sorbitol 1 each 11/01/17 15:14 Cepastat Lozenge - MM Q4H PRN SORE THROAT Gabapentin 300 mg 11/05/17 14:00 11/11/17 06:33 Neurontin - PO 300 mg TID BIRD Administration Guaifenesin 10 ml 11/01/17 15:14 Robitussin Dm - PO Q6H PRN COUGH Hydroxyzine Pamoate 50 mg 11/08/17 17:05 11/10/17 21:54 Vistaril - PO 50 mg Q4H PRN Administration ANXIETY Ibuprofen 400 mg 11/01/17 15:14 Motrin - PO Q6H PRN Pain Level 4-6 Loperamide HCl 4 mg 11/01/17 15:14 Imodium - PO Q6H PRN DIARRHEA Magnesium Citrate 300 ml 11/01/17 15:14 Citroma - PO Q48H PRN CONSTIPATION Magnesium Hydroxide 30 ml 11/01/17 15:14 Milk Of Magnesia - PO DAILY PRN CONSTIPATION Melatonin 5 mg 11/01/17 22:00 11/10/17 21:54 Melatonin PO 5 mg HS PRN Administration INSOMNIA Methadone HCl 80 mg 11/09/17 06:00 11/11/17 06:33 Dolophine - PO 80 mg DAILY@0600 BIRD Administration Nicotine 21 mg 11/02/17 10:00 11/10/17 09:39 Nicoderm Patch - TD Not Given DAILY BIRD Nicotine Polacrilex 2 mg 11/01/17 15:14 Nicorette Gum - BUC Q2H PRN NICOTINE REPLACEMENT RX Non-Formulary Medication 3 tab 11/02/17 10:00 11/10/17 09:39 Glecaprevir/Pibrentasvir [Mavyret 100-40 Mg Tablet] PO 3 tab DAILY BIRD Administration Multivit/Folic Acid/Iron 1 tab 11/02/17 10:00 11/10/17 09:39 Vitamins (Sjr) - PO 1 tab DAILY BIRD Administration Pseudoephedrine/Triprolidine 1 combo 11/01/17 15:14 Actifed - PO TID PRN NASAL CONGESTION Risperidone 2 mg 11/02/17 11:45 11/10/17 09:39 Risperdal - PO 2 mg DAILY BIRD Administration Sertraline HCl 50 mg 11/02/17 12:15 11/10/17 09:39 Zoloft - PO 50 mg DAILY BIRD Administration Thiamine HCl 100 mg 11/01/17 22:00 11/10/17 21:52 Vitamin B1 - PO 100 mg HS BIRD Administration Trazodone HCl 100 mg 11/02/17 22:00 11/10/17 21:52 Desyrel - PO 100 mg HS BIRD Administration Current Side Effect: No Lab tests ordered: Yes Lab tests reviewed: Yes Provider note:: Patient will complete this program on 11/12/17. He has met his treatment goals and will continue to address his issues in outpatient treatment at [facility] at [address] [place] [address]. He responded well to Risperdal 2 mg po daily, Zoloft 50 mg po daily and [id number] mg po HS. Scripts for30 days supply of theses medications will be electronically transmitted to [facility] at [address] [place] [id number]. He is stable for discharge on 11/12/17 Total face to face time:: 35 Mental Status Exam - Mental Status Exam Alert and Oriented to: Time, Place, Person Cognitive Function: Fair Patient Appearance: Well Groomed Mood: Hopeful, Euthymic Affect: Appropriate Patient Behavior: Cooperative Speech Pattern: Clear Voice Loudness: Normal Thought Process: Intact, Goal Oriented Thought Disorder: Not Present Hallucinations: Denies Suicidal Ideation: Denies Homicidal Ideation: Denies Insight/Judgement: Fair Sleep: Fair Appetite: Good Muscle strength/Tone: Normal Gait/Station: Normal Psychiatric Treatment Plan - Problem List (1) Sedative hypnotic or anxiolytic dependence Current Visit: Yes (2) Cannabis dependence Current Visit: No (3) Opioid dependence on agonist therapy Current Visit: Yes (4) Nicotine dependence Current Visit: Yes (5) Schizoaffective disorder Current Visit: Yes (6) Bipolar disorder Current Visit: Yes (7) Substance induced mood disorder Current Visit: Yes (8) Substance-induced sleep disorder Current Visit: Yes (9) Asthma Current Visit: No (10) Hepatitis C carrier Current Visit: No Initial treatment plan: Patient will be discharged tomorrow and referred to [facility]
[2017-11-11] MEDS: NICOTINE 21 MG/24 HOURS TOPICAL PATCH TD SCH (10:14)
[2017-11-11] MEDS: PRENATAL VITAMINS W/ FOLIC ACID TABLET (FP) PO SCH (10:14)
[2017-11-11] MEDS: SERTRALINE HCL 50 MG TABLET (FP) PO SCH (10:14)
[2017-11-11] MEDS: risperiDONE 2 MG TABLET PO SCH (10:14)
[2017-11-11] MEDS: PATIENT'S OWN MEDICATION (NON-FORMULARY) (Glecaprevir/Pibrentasvir [Mavyret 100-40 Mg Tabl PO SCH (10:14)
[2017-11-11] MEDS ORDERED: PT OWN MED DRAWER 7, Y5N ONE (10:51)
[2017-11-11] MEDS: THIAMINE HCL 100 MG TABLET (FP) PO SCH (21:41)
[2017-11-11] MEDS: traZODone HCL 100 MG TABLET (FP) PO SCH (21:42)
[2017-11-11] MEDS: MELATONIN 5 MG TABLETS PO PRN (21:42)
[2017-11-11] MEDS: hydrOXYzine PAMOATE 50 MG CAPSULE (FP) PO PRN (21:42)
[2017-11-12] MEDS: PRENATAL VITAMINS W/ FOLIC ACID TABLET (FP) PO SCH (09:33)
[2017-11-12] MEDS: risperiDONE 2 MG TABLET PO SCH (09:33)
[2017-11-12] MEDS: PATIENT'S OWN MEDICATION (NON-FORMULARY) (Glecaprevir/Pibrentasvir [Mavyret 100-40 Mg Tabl PO SCH (09:33)
[2017-11-12] MEDS: SERTRALINE HCL 50 MG TABLET (FP) PO SCH (09:33)
[2017-11-12] MEDS ORDERED: PT OWN MED DRAWER 7, Y5N ONE (09:34)
[2017-11-12] MEDS: NICOTINE 21 MG/24 HOURS TOPICAL PATCH TD SCH (09:34)
== END 2017-11-12 10:10 | disposition home or self-care (01) | DRG 772 ==
LOC: YASAS 14:54 → Y3W 14:57
PROVIDERS: ADMIT Psychiatry & Neurology Psychiatry; ATTEND Psychiatry & Neurology Psychiatry
PROC: HZ42ZZZ Group Counseling for Substance Abuse Treatment, Cognitive-Behavioral (ICD-10-PCS; principal; 2017-11-01)
DX: F13.20 Sedative, hypnotic or anxiolytic dependence, uncomplicated (principal); F11.20 Opioid dependence, uncomplicated; F12.20 Cannabis dependence, uncomplicated; F17.210 Nicotine dependence, cigarettes, uncomplicated; F25.9 Schizoaffective disorder, unspecified; F31.9 Bipolar disorder, unspecified; F19.24 Other psychoactive substance dependence with psychoactive substance-induced mood disorder; F19.282 Other psychoactive substance dependence with psychoactive substance-induced sleep disorder; J45.909 Unspecified asthma, uncomplicated; B18.2 Chronic viral hepatitis C

== ENCOUNTER 2018-08-11 10:54 | Inpatient (IN) | payer OTHER ==
[2018-08-11 11:11] VITALS: BMI 23.0
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
[2018-08-11] MEDS ORDERED: ACETAMINOPHEN 325 MG TABLET (FP) PO PRN (11:29)
[2018-08-11] MEDS ORDERED: MENTHOL/PHENOL 1 EACH UD MM PRN (11:29)
[2018-08-11] MEDS ORDERED: BISMUTH SUBSALICYLATE 524 MG/30 ML UD PO PRN (11:29)
[2018-08-11] MEDS ORDERED: MAG HYDROX/AL HYDROX/SIMETH 30 ML UNIT-DOSE CUP PO PRN (11:29)
[2018-08-11] MEDS ORDERED: IBUPROFEN 400 MG TABLET (FP) PO PRN (11:29)
[2018-08-11] MEDS ORDERED: MAGNESIUM HYDROX 2400MG/30ML ORAL SUSPENSION 30 ML CUP PO PRN (11:29)
[2018-08-11] MEDS ORDERED: MAGNESIUM CITRATE 300 ML BOTTLE PO PRN (11:29)
[2018-08-11] MEDS ORDERED: ALBUTEROL SO4 8 GM HFA INHALER IH PRN (11:31)
[2018-08-11] MEDS: chlordiazePOXIDE HCL 25 MG CAPSULE PO PRN (12:32)
[2018-08-11] MEDS: chlordiazePOXIDE HCL 25 MG CAPSULE PO SCH ×2 (17:08→22:31)
[2018-08-11] MEDS: THIAMINE HCL 100 MG TABLET (FP) PO SCH (22:31)
[2018-08-11] MEDS: MELATONIN 5 MG TABLETS PO PRN (22:32)
[2018-08-12] MEDS: chlordiazePOXIDE HCL 25 MG CAPSULE PO SCH ×4 (06:16→22:04)
[2018-08-12] MEDS ORDERED: METHADONE HCL 10 MG TABLET PO SCH (07:45)
[2018-08-12] MEDS ORDERED: METHADONE HCL 40 MG DISPERSABLE TABLET ONE (08:19)
[2018-08-12] MEDS ORDERED: METHADONE HCL 10 MG TABLET ONE (08:20)
[2018-08-12] MEDS: METHADONE 120 MG, METHADONE 20 MG PO SCH (08:21)
[2018-08-12 10:17] LABS: HEMOGLOBIN 13.7 GM/dL (11.7-16.9); MCH 30.8 pg (25.7-33.7); MCHC 33.4 g/dl (32.0-35.9); MEAN CELL VOLUME 92.1 fl (80-96); PLATELET COUNT 200 K/MM3 (134-434); RBC 4.45 M/mm3 (4.00-5.60); RDW 14.5 % (11.9-15.9); WHITE BLOOD COUNT 8.4 K/mm3 (4.0-10.0)
--- NOTE | 2018-08-12 10:21 | PN ---
S CIWA - CIWA Score Nausea/Vomitin Muscle Tremors: 2 Anxiety: 2 Agitation: 2 Paroxysmal Sweats: 2 Orientation: 0-Oriented Tacttile Disturbances: 1-Very Mild Itch/Numbness Auditory Disturbances: 1-Very Mild Visual Disturbances: 0-None Headache: 2-Mild CIWA-Ar Total Score: 14 BHS Progress Note (SOAP) Subjective: alert,irritable,anxious,interrupted sleep,tremor Objective: 08/12/18 10:20 Vital Signs Temperature 97.7 F 08/12/18 09:04 Pulse Rate 64 08/12/18 09:04 Respiratory Rate 16 08/12/18 09:04 Blood Pressure 111/65 08/12/18 09:04 O2 Sat by Pulse Oximetry (%) 08/12/18 10:20 labs pending Assessment: 08/12/18 10:20 withdrawal symptom Plan: continue detox
[2018-08-12] MEDS: PRENATAL VITAMINS W/ FOLIC ACID TABLET (FP) PO SCH (10:35)
[2018-08-12 10:45] LABS: ALBUMIN 3.8 g/dl (3.4-5.0); ALK PHOS 65 U/L (45-117); ANION GAP 5 MMOL/L (8-16); BILIRUBIN,TOTAL 0.4 mg/dL (0.2-1); BLOOD UREA NITROGEN 10 mg/dL (7-18); CALCIUM 8.7 mg/dL (8.5-10.1); CHLORIDE 106 mmol/L (98-107); CO2 29 mmol/L (21-32); GLUCOSE,RANDOM 132 mg/dL (74-106); POTASSIUM 4.2 mmol/L (3.5-5.1); SGOT/AST 17 U/L (15-37); SGPT/ALT 27 U/L (13-61); SODIUM 139 mmol/L (136-145); TOT PROT 7.6 g/dl (6.4-8.2)
--- NOTE | 2018-08-12 10:50 | PN ---
S Progress Note Note: patient stated has neuropathy on neurontin,also itching left leg, neurontin 300 gs po tid and benadryl 25 mgs po q 6hr prn for itching close monitoring
[2018-08-12] MEDS: diphenhydrAMINE HCL 25 MG CAPSULE (FP) PO PRN (14:13)
[2018-08-12] MEDS: chlordiazePOXIDE HCL 25 MG CAPSULE PO PRN (14:13)
[2018-08-12] MEDS: METHOCARBAMOL 500 MG TABLET PO PRN (14:13)
[2018-08-12] MEDS: GABAPENTIN 300 MG CAPSULE (FP) PO SCH ×2 (14:13→22:03)
[2018-08-12] MEDS: MELATONIN 5 MG TABLETS PO PRN (22:03)
[2018-08-12] MEDS: THIAMINE HCL 100 MG TABLET (FP) PO SCH (22:04)
[2018-08-13] MEDS ORDERED: METHADONE HCL 40 MG DISPERSABLE TABLET ONE (04:48)
[2018-08-13] MEDS ORDERED: METHADONE HCL 10 MG TABLET ONE (04:49)
[2018-08-13] MEDS: chlordiazePOXIDE HCL 25 MG CAPSULE PO SCH ×2 (06:10→10:15)
[2018-08-13] MEDS: METHADONE 120 MG, METHADONE 20 MG PO SCH (06:10)
[2018-08-13] MEDS: GABAPENTIN 300 MG CAPSULE (FP) PO SCH ×3 (06:17→22:33)
[2018-08-13] MEDS: PRENATAL VITAMINS W/ FOLIC ACID TABLET (FP) PO SCH (10:14)
--- NOTE | 2018-08-13 12:18 | PN ---
S CIWA - CIWA Score Nausea/Vomitin-No Nausea/No Vomiting Muscle Tremors: 3 Anxiety: 4-Mod. Anxious/Guarded Agitation: 4-Moderately Restless Paroxysmal Sweats: 2 Orientation: 0-Oriented Tacttile Disturbances: 0-None Auditory Disturbances: 0-None Visual Disturbances: 0-None Headache: 0-None Present CIWA-Ar Total Score: 13 BHS Progress Note (SOAP) Subjective: shakes sweats anxiety interrupted sleep body aches itchy feet i think it foot fungus Objective: 08/13/18 12:17 Vital Signs Temperature 97.5 F L 08/13/18 09:47 Pulse Rate 76 08/13/18 09:47 Respiratory Rate 17 08/13/18 09:47 Blood Pressure 106/67 08/13/18 09:47 O2 Sat by Pulse Oximetry (%) Laboratory Tests 08/12/18 08/12/18 08/12/18 06:00 06:00 06:00 WBC 8.4 RBC 4.45 Hgb 13.7 Hct 41.0 MCV 92.1 MCH 30.8 MCHC 33.4 RDW 14.5 Plt Count 200 MPV 9.0 Sodium 139 Potassium 4.2 Chloride 106 Carbon Dioxide 29 Anion Gap 5 L BUN 10 Creatinine 1.0 Creat Clearance w eGFR > 60 Random Glucose 132 H Calcium 8.7 Total Bilirubin 0.4 AST 17 ALT 27 Alkaline Phosphatase 65 Total Protein 7.6 Albumin 3.8 RPR Titer Nonreactive aaox3 ambulating no acute distress Assessment: 08/13/18 12:17 withdrawal sx dry/scaly feet noted Plan: continue detox increase fluids tinactin cream
[2018-08-13] MEDS: TOLNAFTATE 1% CREAM 15 GM TUBE TP SCH ×2 (12:36→22:35)
[2018-08-13] MEDS: diphenhydrAMINE HCL 25 MG CAPSULE (FP) PO PRN (13:28)
[2018-08-13] MEDS: chlordiazePOXIDE HCL 25 MG CAPSULE PO PRN (16:56)
[2018-08-13] MEDS: hydrOXYzine PAMOATE 25 MG CAPSULE (FP) PO PRN (16:57)
[2018-08-13] MEDS ORDERED: chlordiazePOXIDE HCL 10 MG CAPSULE PO PRN (17:00)
[2018-08-13] MEDS: chlordiazePOXIDE HCL 10 MG CAPSULE PO SCH ×2 (17:34→22:34)
[2018-08-13] MEDS: THIAMINE HCL 100 MG TABLET (FP) PO SCH (22:33)
[2018-08-13] MEDS: METHOCARBAMOL 500 MG TABLET PO PRN (22:33)
[2018-08-14] MEDS ORDERED: METHADONE HCL 40 MG DISPERSABLE TABLET ONE (05:00)
[2018-08-14] MEDS ORDERED: METHADONE HCL 10 MG TABLET ONE (05:00)
[2018-08-14] MEDS: METHADONE 120 MG, METHADONE 20 MG PO SCH (06:24)
[2018-08-14] MEDS: chlordiazePOXIDE HCL 10 MG CAPSULE PO SCH ×3 (06:24→17:26)
[2018-08-14] MEDS: GABAPENTIN 300 MG CAPSULE (FP) PO SCH ×3 (06:24→22:23)
[2018-08-14] MEDS: ACETAMINOPHEN 325 MG TABLET (FP) PO PRN ×2 (08:36→19:25)
--- NOTE | 2018-08-14 09:46 | PN ---
BHS Progress Note (SOAP) Subjective: Shakes, decreased appetite and interrupted sleep Objective: 08/14/18 09:44 Vital Signs 08/14/18 08/14/18 08/14/18 03:30 07:24 09:42 Temperature 98.1 F 99.3 F Pulse Rate 66 78 Respiratory 18 18 18 Rate Blood Pressure 113/62 114/67 Laboratory Last Values WBC 8.4 K/mm3 (4.0-10.0) 08/12/18 06:00 RBC 4.45 M/mm3 (4.00-5.60) 08/12/18 06:00 Hgb 13.7 GM/dL (11.7-16.9) 08/12/18 06:00 Hct 41.0 % (35.4-49) 08/12/18 06:00 MCV 92.1 fl (80-96) 08/12/18 06:00 MCH 30.8 pg (25.7-33.7) 08/12/18 06:00 MCHC 33.4 g/dl (32.0-35.9) 08/12/18 06:00 RDW 14.5 % (11.9-15.9) 08/12/18 06:00 Plt Count 200 K/MM3 (134-434) 08/12/18 06:00 MPV 9.0 fl (7.5-11.1) 08/12/18 06:00 Sodium 139 mmol/L (136-145) 08/12/18 06:00 Potassium 4.2 mmol/L (3.5-5.1) 08/12/18 06:00 Chloride 106 mmol/L (98-107) 08/12/18 06:00 Carbon Dioxide 29 mmol/L (21-32) 08/12/18 06:00 Anion Gap 5 MMOL/L (8-16) L 08/12/18 06:00 BUN 10 mg/dL (7-18) 08/12/18 06:00 Creatinine 1.0 mg/dL (0.55-1.3) 08/12/18 06:00 Creat Clearance w eGFR > 60 (>60) 08/12/18 06:00 Random Glucose 132 mg/dL (74-106) H 08/12/18 06:00 Calcium 8.7 mg/dL (8.5-10.1) 08/12/18 06:00 Total Bilirubin 0.4 mg/dL (0.2-1) 08/12/18 06:00 AST 17 U/L (15-37) 08/12/18 06:00 ALT 27 U/L (13-61) 08/12/18 06:00 Alkaline Phosphatase 65 U/L (45-117) 08/12/18 06:00 Total Protein 7.6 g/dl (6.4-8.2) 08/12/18 06:00 Albumin 3.8 g/dl (3.4-5.0) 08/12/18 06:00 RPR Titer Nonreactive (NONREACTIVE) 08/12/18 06:00 Labs noted, no panic values No apparent distress or discomfort Assessment: 08/14/18 09:45 Withdrawal sx Plan: Continue detox
[2018-08-14] MEDS: PRENATAL VITAMINS W/ FOLIC ACID TABLET (FP) PO SCH (10:03)
[2018-08-14] MEDS: TOLNAFTATE 1% CREAM 15 GM TUBE TP SCH ×2 (10:05→22:23)
[2018-08-14] MEDS: METHOCARBAMOL 500 MG TABLET PO PRN (14:58)
[2018-08-14] MEDS: diphenhydrAMINE HCL 25 MG CAPSULE (FP) PO PRN (17:27)
[2018-08-14] MEDS: THIAMINE HCL 100 MG TABLET (FP) PO SCH (22:23)
[2018-08-14] MEDS: hydrOXYzine PAMOATE 25 MG CAPSULE (FP) PO PRN (22:23)
[2018-08-14] MEDS: MELATONIN 5 MG TABLETS PO PRN (22:24)
[2018-08-15] MEDS ORDERED: METHADONE HCL 40 MG DISPERSABLE TABLET ONE (05:33)
[2018-08-15] MEDS ORDERED: METHADONE HCL 10 MG TABLET ONE (05:34)
[2018-08-15] MEDS: METHADONE 120 MG, METHADONE 20 MG PO SCH (06:06)
[2018-08-15] MEDS: GABAPENTIN 300 MG CAPSULE (FP) PO SCH (06:06)
[2018-08-15] MEDS: chlordiazePOXIDE HCL 10 MG CAPSULE PO SCH (06:06)
--- NOTE | 2018-08-15 08:43 | DS ---
[facility] Detox Discharge Summary Admission Date: 08/11/18 Discharge Date: 08/15/18 - History Present History: Alcohol Dependence Additional Comments: Patient medically stable, follow with PCP and rehab. Pertinent Past History: Vital Signs Temperature 98.2 F 08/15/18 09:26 Pulse Rate 90 08/15/18 09:26 Respiratory Rate 16 08/15/18 09:26 Blood Pressure 123/69 08/15/18 09:26 O2 Sat by Pulse Oximetry (%) Laboratory Last Values WBC 8.4 K/mm3 (4.0-10.0) 08/12/18 06:00 RBC 4.45 M/mm3 (4.00-5.60) 08/12/18 06:00 Hgb 13.7 GM/dL (11.7-16.9) 08/12/18 06:00 Hct 41.0 % (35.4-49) 08/12/18 06:00 MCV 92.1 fl (80-96) 08/12/18 06:00 MCH 30.8 pg (25.7-33.7) 08/12/18 06:00 MCHC 33.4 g/dl (32.0-35.9) 08/12/18 06:00 RDW 14.5 % (11.9-15.9) 08/12/18 06:00 Plt Count 200 K/MM3 (134-434) 08/12/18 06:00 MPV 9.0 fl (7.5-11.1) 08/12/18 06:00 Sodium 139 mmol/L (136-145) 08/12/18 06:00 Potassium 4.2 mmol/L (3.5-5.1) 08/12/18 06:00 Chloride 106 mmol/L (98-107) 08/12/18 06:00 Carbon Dioxide 29 mmol/L (21-32) 08/12/18 06:00 Anion Gap 5 MMOL/L (8-16) L 08/12/18 06:00 BUN 10 mg/dL (7-18) 08/12/18 06:00 Creatinine 1.0 mg/dL (0.55-1.3) 08/12/18 06:00 Creat Clearance w eGFR > 60 (>60) 08/12/18 06:00 Random Glucose 132 mg/dL (74-106) H 08/12/18 06:00 Calcium 8.7 mg/dL (8.5-10.1) 08/12/18 06:00 Total Bilirubin 0.4 mg/dL (0.2-1) 08/12/18 06:00 AST 17 U/L (15-37) 08/12/18 06:00 ALT 27 U/L (13-61) 08/12/18 06:00 Alkaline Phosphatase 65 U/L (45-117) 08/12/18 06:00 Total Protein 7.6 g/dl (6.4-8.2) 08/12/18 06:00 Albumin 3.8 g/dl (3.4-5.0) 08/12/18 06:00 RPR Titer Nonreactive (NONREACTIVE) 08/12/18 06:00 - Physical Exam Results Vital Signs: Vital Signs Temperature 97.7 F 08/15/18 07:19 Pulse Rate 67 08/15/18 07:19 Respiratory Rate 18 08/15/18 07:19 Blood Pressure 90/50 L 08/15/18 07:19 O2 Sat by Pulse Oximetry (%) - Treatment Hospital Course: Detox Protocol Followed, Detoxed Safely, Responded well, Discharged Condition Good, Rehab Referral Accepted - Medication Discharge Medications: Ambulatory Orders Methadone [Dolophine -] 140 mg PO DAILY 08/11/18 Albuterol Sulfate Inhaler - [Ventolin HFA Inhaler -] 2 inh IH Q4H PRN #1 inhaler 08/15/18 - Diagnosis (1) Alcohol dependence with uncomplicated withdrawal Current Visit: Yes Status: Acute (2) Methadone maintenance therapy patient Current Visit: Yes Status: Acute (3) Cocaine dependence Current Visit: Yes Status: Active (4) Weight decreased Current Visit: No Status: Active (5) Cannabis dependence Current Visit: Yes Status: Acute (6) Asthma Current Visit: Yes Status: Chronic (7) Nicotine dependence Current Visit: Yes Status: Chronic Qualifiers: Nicotine product type: cigarettes - AMA Did Patient Leave Against Medical Advice: No
[2018-08-15] MEDS: PRENATAL VITAMINS W/ FOLIC ACID TABLET (FP) PO SCH (09:22)
[2018-08-15 09:27] VITALS: BP 123/69; PULSE 90; TEMP 98.2
== END 2018-08-15 09:35 | disposition home or self-care (01) | DRG 773 ==
LOC: YASAS 10:54 → Y6N 11:27
PROVIDERS: ADMIT Surgery; ATTEND Surgery
PROC: HZ2ZZZZ Detoxification Services for Substance Abuse Treatment (ICD-10-PCS; principal; 2018-08-11)
DX: F10.230 Alcohol dependence with withdrawal, uncomplicated (principal); F14.20 Cocaine dependence, uncomplicated; F12.20 Cannabis dependence, uncomplicated; F11.20 Opioid dependence, uncomplicated; F17.210 Nicotine dependence, cigarettes, uncomplicated; F31.9 Bipolar disorder, unspecified; G62.9 Polyneuropathy, unspecified; J45.909 Unspecified asthma, uncomplicated; B18.2 Chronic viral hepatitis C; R63.4 Abnormal weight loss; Z68.23 Body mass index [BMI] 23.0-23.9, adult; Z91.5 Personal history of self-harm
CPT/HCPCS: 36415; 80053; 85027; 86593

== ENCOUNTER 2018-10-21 13:15 | Inpatient (IN) | payer OTHER ==
[2018-10-21 18:42] VITALS: BMI 27.3
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
[2018-10-21] MEDS ORDERED: ALBUTEROL SO4 8 GM HFA INHALER IH PRN (20:00)
[2018-10-21] MEDS ORDERED: P-EPHED 60MG/TRIPROLIDI 2.5MG TABLET PO PRN (20:05)
[2018-10-21] MEDS ORDERED: MAGNESIUM HYDROX 2400MG/30ML ORAL SUSPENSION 30 ML CUP PO PRN (20:05)
[2018-10-21] MEDS ORDERED: LOPERAMIDE HCL 2 MG CAPSULE PO PRN (20:05)
[2018-10-21] MEDS ORDERED: MAGNESIUM CITRATE 300 ML BOTTLE PO PRN (20:05)
[2018-10-21] MEDS ORDERED: guaiFENesin 200 MG/10 ML 10 ML UNIT-DOSE CUPS PO PRN (20:05)
[2018-10-21] MEDS ORDERED: NICOTINE POLACRILEX 2 MG GUM BC PRN (20:05)
[2018-10-21] MEDS ORDERED: MAG HYDROX/AL HYDROX/SIMETH 30 ML UNIT-DOSE CUP PO PRN (20:05)
[2018-10-21] MEDS ORDERED: MENTHOL/PHENOL 1 EACH UD MM PRN (20:05)
[2018-10-21] MEDS: THIAMINE HCL 100 MG TABLET (FP) PO SCH (21:45)
[2018-10-21] MEDS: MELATONIN 5 MG TABLETS PO PRN (21:46)
[2018-10-22 01:23] LABS: URINE APPEARANCE TURBID; URINE BILIRUBIN NEGATIVE (NEGATIVE); URINE COLOR DK YELLOW; URINE GLUCOSE (UA) NEGATIVE (NEGATIVE); URINE KETONE TRACE (NEGATIVE); URINE LEUK ESTERASE NEGATIVE (NEGATIVE); URINE NITRITE NEGATIVE (NEGATIVE); URINE PROTEIN NEGATIVE (NEGATIVE)
[2018-10-22] MEDS: PRENATAL VITAMINS W/ FOLIC ACID TABLET (FP) PO SCH (09:12)
[2018-10-22] MEDS: METHADONE HCL 40 MG DISPERSABLE TABLET PO SCH (09:12)
[2018-10-22 10:12] LABS: HEMATOCRIT 43.2 % (35.4-49); HEMOGLOBIN 14.1 GM/dL (11.7-16.9); MCH 29.5 pg (25.7-33.7); MCHC 32.7 g/dl (32.0-35.9); MEAN CELL VOLUME 90.2 fl (80-96); MEAN PLT VOLUME 8.7 fl (7.5-11.1); PLATELET COUNT 226 K/MM3 (134-434); RBC 4.78 M/mm3 (4.00-5.60); RDW 13.7 % (11.9-15.9); WHITE BLOOD COUNT 7.6 K/mm3 (4.0-10.0)
[2018-10-22 10:14] LABS: ALBUMIN 3.5 g/dl (3.4-5.0); BILIRUBIN,TOTAL 0.5 mg/dL (0.2-1); CALCIUM 8.7 mg/dL (8.5-10.1); CREATININE 0.9 mg/dL (0.55-1.3); POTASSIUM 4.4 mmol/L (3.5-5.1); TOT PROT 7.3 g/dl (6.4-8.2)
[2018-10-22] MEDS: NICOTINE 14 MG/24 HOURS TOPICAL PATCH TD SCH (10:14)
[2018-10-22] MEDS: hydrOXYzine PAMOATE 25 MG CAPSULE (FP) PO PRN ×2 (12:31→18:23)
[2018-10-22] MEDS: THIAMINE HCL 100 MG TABLET (FP) PO SCH (21:52)
[2018-10-22] MEDS: MELATONIN 5 MG TABLETS PO PRN (21:52)
[2018-10-23] MEDS: METHADONE HCL 40 MG DISPERSABLE TABLET PO SCH (06:14)
[2018-10-23] MEDS: PRENATAL VITAMINS W/ FOLIC ACID TABLET (FP) PO SCH (09:54)
[2018-10-23] MEDS: hydrOXYzine PAMOATE 25 MG CAPSULE (FP) PO PRN (09:56)
[2018-10-23] MEDS: NICOTINE 14 MG/24 HOURS TOPICAL PATCH TD SCH (10:29)
--- NOTE | 2018-10-23 13:52 | PN ---
S Progress Note Note: patient is anxious,irritable,aching pain in back,legs Vital Signs Temperature 98 F 10/23/18 06:57 Pulse Rate 65 10/23/18 06:57 Respiratory Rate 16 10/23/18 06:57 Blood Pressure 123/79 10/23/18 06:57 O2 Sat by Pulse Oximetry (%) vistaril 50 mgs po q 6 hrs prn foa anxiety robaxin 500 mgs po qid prn close monitoring
--- NOTE | 2018-10-23 13:59 | PN ---
[facility] Progress Note Note: patient has been on vistaril 25 mgs po 6 hrs prn,d/c vistaril 50 mgs,patient stated has been taking neurontin in the past for neuropathy, will give neurontin 100 mgs po tid close monitoring
[2018-10-23] MEDS: METHOCARBAMOL 500 MG TABLET PO PRN (14:40)
[2018-10-23] MEDS: GABAPENTIN 100 MG CAPSULE (FP) PO SCH ×2 (14:40→22:11)
[2018-10-23] MEDS: THIAMINE HCL 100 MG TABLET (FP) PO SCH (22:11)
[2018-10-23] MEDS: MELATONIN 5 MG TABLETS PO PRN (22:12)
[2018-10-24] MEDS: METHOCARBAMOL 500 MG TABLET PO PRN (06:23)
[2018-10-24] MEDS: METHADONE HCL 40 MG DISPERSABLE TABLET PO SCH (06:23)
[2018-10-24] MEDS: GABAPENTIN 100 MG CAPSULE (FP) PO SCH ×3 (06:23→22:09)
[2018-10-24] MEDS: PRENATAL VITAMINS W/ FOLIC ACID TABLET (FP) PO SCH (10:04)
[2018-10-24] MEDS: NICOTINE 14 MG/24 HOURS TOPICAL PATCH TD SCH (10:04)
[2018-10-24] MEDS: hydrOXYzine PAMOATE 25 MG CAPSULE (FP) PO PRN ×2 (10:06→18:02)
[2018-10-24] MEDS: MELATONIN 5 MG TABLETS PO PRN (22:08)
[2018-10-24] MEDS: THIAMINE HCL 100 MG TABLET (FP) PO SCH (22:09)
[2018-10-25] MEDS: GABAPENTIN 100 MG CAPSULE (FP) PO SCH ×3 (06:11→21:46)
[2018-10-25] MEDS: METHADONE HCL 40 MG DISPERSABLE TABLET PO SCH (06:11)
[2018-10-25] MEDS: PRENATAL VITAMINS W/ FOLIC ACID TABLET (FP) PO SCH (10:07)
[2018-10-25] MEDS: hydrOXYzine PAMOATE 25 MG CAPSULE (FP) PO PRN ×3 (10:08→21:47)
[2018-10-25] MEDS: NICOTINE 14 MG/24 HOURS TOPICAL PATCH TD SCH (10:28)
[2018-10-25] MEDS: THIAMINE HCL 100 MG TABLET (FP) PO SCH (21:46)
[2018-10-25] MEDS: MELATONIN 5 MG TABLETS PO PRN (21:46)
[2018-10-26] MEDS: GABAPENTIN 100 MG CAPSULE (FP) PO SCH ×3 (06:21→21:36)
[2018-10-26] MEDS: METHADONE HCL 40 MG DISPERSABLE TABLET PO SCH (06:21)
[2018-10-26] MEDS: hydrOXYzine PAMOATE 25 MG CAPSULE (FP) PO PRN ×2 (10:13→21:37)
[2018-10-26] MEDS: PRENATAL VITAMINS W/ FOLIC ACID TABLET (FP) PO SCH (10:13)
[2018-10-26] MEDS: NICOTINE 14 MG/24 HOURS TOPICAL PATCH TD SCH (10:14)
[2018-10-26] MEDS: THIAMINE HCL 100 MG TABLET (FP) PO SCH (21:35)
[2018-10-26] MEDS: MELATONIN 5 MG TABLETS PO PRN (21:36)
[2018-10-27] MEDS: METHADONE HCL 40 MG DISPERSABLE TABLET PO SCH (06:23)
[2018-10-27] MEDS: GABAPENTIN 100 MG CAPSULE (FP) PO SCH ×3 (06:24→21:11)
[2018-10-27] MEDS: PRENATAL VITAMINS W/ FOLIC ACID TABLET (FP) PO SCH (09:18)
[2018-10-27] MEDS: hydrOXYzine PAMOATE 25 MG CAPSULE (FP) PO PRN ×3 (09:18→21:12)
[2018-10-27] MEDS: NICOTINE 14 MG/24 HOURS TOPICAL PATCH TD SCH (09:22)
[2018-10-27] MEDS: ACETAMINOPHEN 325 MG TABLET (FP) PO PRN (17:10)
[2018-10-27] MEDS: THIAMINE HCL 100 MG TABLET (FP) PO SCH (21:11)
[2018-10-27] MEDS: MELATONIN 5 MG TABLETS PO PRN (21:12)
[2018-10-28] MEDS: GABAPENTIN 100 MG CAPSULE (FP) PO SCH ×3 (05:57→21:34)
[2018-10-28] MEDS: hydrOXYzine PAMOATE 25 MG CAPSULE (FP) PO PRN ×3 (05:58→21:34)
[2018-10-28] MEDS: METHADONE HCL 40 MG DISPERSABLE TABLET PO SCH (05:58)
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
[2018-10-28] MEDS: PRENATAL VITAMINS W/ FOLIC ACID TABLET (FP) PO SCH (10:20)
[2018-10-28] MEDS: NICOTINE 14 MG/24 HOURS TOPICAL PATCH TD SCH (10:20)
[2018-10-28] MEDS: THIAMINE HCL 100 MG TABLET (FP) PO SCH (21:34)
[2018-10-28] MEDS: MELATONIN 5 MG TABLETS PO PRN (21:34)
[2018-10-28] MEDS: IBUPROFEN 400 MG TABLET (FP) PO PRN (21:58)
[2018-10-29] MEDS: METHADONE HCL 40 MG DISPERSABLE TABLET PO SCH (06:09)
[2018-10-29] MEDS: GABAPENTIN 100 MG CAPSULE (FP) PO SCH ×3 (06:10→21:30)
[2018-10-29] MEDS: hydrOXYzine PAMOATE 25 MG CAPSULE (FP) PO PRN ×3 (09:39→21:30)
[2018-10-29] MEDS: NICOTINE 14 MG/24 HOURS TOPICAL PATCH TD SCH (09:40)
[2018-10-29] MEDS: PRENATAL VITAMINS W/ FOLIC ACID TABLET (FP) PO SCH (09:40)
[2018-10-29] MEDS: MELATONIN 5 MG TABLETS PO PRN (21:30)
[2018-10-29] MEDS: THIAMINE HCL 100 MG TABLET (FP) PO SCH (21:30)
[2018-10-29] MEDS: ACETAMINOPHEN 325 MG TABLET (FP) PO PRN (21:31)
[2018-10-29] MEDS: IBUPROFEN 400 MG TABLET (FP) PO PRN (22:11)
[2018-10-29] MEDS ORDERED: BENZOCAINE 20 % GEL TUBE MM PRN (22:35)
[2018-10-30] MEDS: GABAPENTIN 100 MG CAPSULE (FP) PO SCH ×3 (06:27→21:11)
[2018-10-30] MEDS: METHADONE HCL 40 MG DISPERSABLE TABLET PO SCH (06:27)
[2018-10-30] MEDS: ACETAMINOPHEN 325 MG TABLET (FP) PO PRN ×2 (06:29→13:25)
[2018-10-30] MEDS: hydrOXYzine PAMOATE 25 MG CAPSULE (FP) PO PRN ×2 (09:33→21:11)
[2018-10-30] MEDS: PRENATAL VITAMINS W/ FOLIC ACID TABLET (FP) PO SCH (09:33)
[2018-10-30] MEDS: NICOTINE 14 MG/24 HOURS TOPICAL PATCH TD SCH (09:34)
[2018-10-30] MEDS: THIAMINE HCL 100 MG TABLET (FP) PO SCH (21:11)
[2018-10-30] MEDS: MELATONIN 5 MG TABLETS PO PRN (21:12)
[2018-10-30] MEDS: IBUPROFEN 400 MG TABLET (FP) PO PRN (21:12)
[2018-10-31] MEDS: METHADONE HCL 40 MG DISPERSABLE TABLET PO SCH (06:19)
[2018-10-31] MEDS: GABAPENTIN 100 MG CAPSULE (FP) PO SCH ×3 (06:19→21:33)
[2018-10-31] MEDS: NICOTINE 14 MG/24 HOURS TOPICAL PATCH TD SCH (09:17)
[2018-10-31] MEDS: PRENATAL VITAMINS W/ FOLIC ACID TABLET (FP) PO SCH (09:17)
[2018-10-31] MEDS: hydrOXYzine PAMOATE 25 MG CAPSULE (FP) PO PRN ×3 (09:18→21:34)
[2018-10-31] MEDS: THIAMINE HCL 100 MG TABLET (FP) PO SCH (21:33)
[2018-10-31] MEDS: MELATONIN 5 MG TABLETS PO PRN (21:34)
[2018-10-31] MEDS: IBUPROFEN 400 MG TABLET (FP) PO PRN (21:34)
[2018-11-01] MEDS: METHADONE HCL 40 MG DISPERSABLE TABLET PO SCH (06:11)
[2018-11-01] MEDS: GABAPENTIN 100 MG CAPSULE (FP) PO SCH ×3 (06:11→21:04)
[2018-11-01] MEDS: PRENATAL VITAMINS W/ FOLIC ACID TABLET (FP) PO SCH (09:43)
[2018-11-01] MEDS: NICOTINE 14 MG/24 HOURS TOPICAL PATCH TD SCH (09:44)
[2018-11-01] MEDS: hydrOXYzine PAMOATE 25 MG CAPSULE (FP) PO PRN ×3 (09:44→21:06)
[2018-11-01] MEDS: ACETAMINOPHEN 325 MG TABLET (FP) PO PRN (20:14)
[2018-11-01] MEDS: MELATONIN 5 MG TABLETS PO PRN (21:04)
[2018-11-01] MEDS: THIAMINE HCL 100 MG TABLET (FP) PO SCH (21:04)
[2018-11-02] MEDS: METHADONE HCL 40 MG DISPERSABLE TABLET PO SCH (05:41)
[2018-11-02] MEDS: GABAPENTIN 100 MG CAPSULE (FP) PO SCH ×3 (05:41→21:08)
[2018-11-02] MEDS: hydrOXYzine PAMOATE 25 MG CAPSULE (FP) PO PRN ×3 (09:38→21:08)
[2018-11-02] MEDS: NICOTINE 14 MG/24 HOURS TOPICAL PATCH TD SCH (09:38)
[2018-11-02] MEDS: PRENATAL VITAMINS W/ FOLIC ACID TABLET (FP) PO SCH (09:38)
--- NOTE | 2018-11-02 10:00 | PN ---
[facility] Progress Note (SOAP) Subjective: Patient to be discharged tomorrow. Objective: Patient a+ox3, no neurological deficits noted, lungs clear, heart rate regular, abd soft, non-tender, non-distended. +BS. 11/02/18 09:56 CBC, BMP 10/22/18 07:40 10/22/18 07:40 Vital Signs (72 hours) 10/30/18 10/31/18 10/31/18 10:00 00:30 03:30 Temperature Pulse Rate 74 Respiratory 17 18 18 Rate Blood Pressure 10/31/18 10/31/18 11/01/18 06:51 09:30 00:30 Temperature 98.1 F Pulse Rate 74 85 Respiratory 20 18 18 Rate Blood Pressure 128/67 119/65 11/01/18 11/01/18 11/01/18 03:30 06:35 09:30 Temperature 98.3 F Pulse Rate 63 78 Respiratory 18 18 18 Rate Blood Pressure 145/88 120/70 11/02/18 11/02/18 11/02/18 00:30 03:30 06:25 Temperature 98.6 F Pulse Rate 88 Respiratory 18 18 18 Rate Blood Pressure 147/85 Assessment: Medically stable for discharge Discharge Dx: ETOH dependence Opioid Dependence Hep C carrier Cocaine Dependence. 11/02/18 09:58 Plan: Will return to methadone clinic at [facility]; Receives medical care from a provider in [place], cannot remember the name. Does not need medications transmitted to pharmacy.
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
[2018-11-02] MEDS ORDERED: SERTRALINE HCL 50 MG TABLET (FP) PO SCH (14:00)
[2018-11-02] MEDS: MELATONIN 5 MG TABLETS PO PRN (21:08)
[2018-11-02] MEDS: THIAMINE HCL 100 MG TABLET (FP) PO SCH (21:08)
[2018-11-02] MEDS ORDERED: SUVOREXANT 10 MG TABLET PO PRN (22:00)
[2018-11-02] MEDS ORDERED: risperiDONE 2 MG TABLET PO SCH (22:00)
[2018-11-03] MEDS: GABAPENTIN 100 MG CAPSULE (FP) PO SCH (05:43)
[2018-11-03] MEDS: METHADONE HCL 40 MG DISPERSABLE TABLET PO SCH (05:43)
[2018-11-03 06:18] VITALS: BP 132/78; PULSE 72; TEMP 97
--- NOTE | 2018-11-03 06:33 | PN ---
S Progress Note Note: Patient is scheduled for discharge today. Scripts for 30 days supply of medications(Zoloft 50 mg/day, Risperdal 2 mg/hs) are electronically transmitted to [facility] at [address] [place] [id number]
[2018-11-03] MEDS: hydrOXYzine PAMOATE 25 MG CAPSULE (FP) PO PRN (07:00)
== END 2018-11-03 07:00 | disposition home or self-care (01) | DRG 772 ==
LOC: YASAS 13:15 → Y3W 20:00
PROVIDERS: ADMIT Neuromusculoskeletal Medicine & OMM; ATTEND Neuromusculoskeletal Medicine & OMM
PROC: HZ42ZZZ Group Counseling for Substance Abuse Treatment, Cognitive-Behavioral (ICD-10-PCS; principal; 2018-10-21)
DX: F10.20 Alcohol dependence, uncomplicated (principal); F11.20 Opioid dependence, uncomplicated; F14.20 Cocaine dependence, uncomplicated; F12.20 Cannabis dependence, uncomplicated; F19.20 Other psychoactive substance dependence, uncomplicated; F17.210 Nicotine dependence, cigarettes, uncomplicated; F25.9 Schizoaffective disorder, unspecified; F19.282 Other psychoactive substance dependence with psychoactive substance-induced sleep disorder; F31.9 Bipolar disorder, unspecified; J45.909 Unspecified asthma, uncomplicated; B18.2 Chronic viral hepatitis C; Z91.5 Personal history of self-harm
CPT/HCPCS: 36415; 80053; 81003; 85027; 86593

== ENCOUNTER 2018-10-28 09:03 | Emergency (ER) | payer OTHER | END 2018-10-28 13:07 | disposition home or self-care (01) | LOC: JER 09:03 ==

== ENCOUNTER 2020-07-23 10:13 | Inpatient (IN) | payer OTHER ==
[2020-07-23 11:47] VITALS: BMI 27.1
[2020-07-23] MEDS ORDERED: MAGNESIUM HYDROX 2400MG/30ML ORAL SUSPENSION 30 ML CUP PO PRN (12:57)
[2020-07-23] MEDS ORDERED: MENTHOL/PHENOL 1 EACH UD MM PRN (12:57)
[2020-07-23] MEDS ORDERED: ONDANSETRON *ODT* 4 MG TABLET SL PRN (12:57)
[2020-07-23] MEDS ORDERED: MAG HYDROX/AL HYDROX/SIMETH 30 ML UNIT-DOSE CUP PO PRN (12:57)
[2020-07-23] MEDS ORDERED: MAGNESIUM CITRATE 300 ML BOTTLE PO PRN (12:57)
[2020-07-23] MEDS ORDERED: ACETAMINOPHEN 325 MG TABLET (FP) PO PRN ×2 (12:57)
[2020-07-23] MEDS ORDERED: IBUPROFEN 400 MG TABLET (FP) PO PRN (12:57)
[2020-07-23] MEDS ORDERED: BISMUTH SUBSALICYLATE 524 MG/30 ML UD PO PRN (12:57)
[2020-07-23] MEDS ORDERED: NICOTINE POLACRILEX 2 MG GUM BUC PRN (12:57)
[2020-07-23] MEDS ORDERED: METHOCARBAMOL 500 MG TABLET PO PRN (12:57)
[2020-07-23] MEDS ORDERED: ALBUTEROL SO4 HFA INHALER IH PRN (12:59)
[2020-07-23] MEDS: hydrOXYzine PAMOATE 25 MG CAPSULE (FP) PO SCH ×3 (14:35→22:04)
[2020-07-23] MEDS: diazePAM 5 MG TABLET PO SCH ×3 (14:35→22:02)
[2020-07-23] MEDS: PRENATAL VITAMINS W/ FOLIC ACID TABLET (FP) PO SCH (14:35)
[2020-07-23 16:30] LABS: HEMATOCRIT 39.4 % (35.4-49); MCH 29.9 pg (25.7-33.7); MCHC 32.9 g/dl (32.0-35.9); MEAN CELL VOLUME 90.6 fl (80-96); MEAN PLT VOLUME 9.8 fl (7.5-11.1); PLATELET COUNT 168 K/MM3 (134-434); RBC 4.34 M/mm3 (4.00-5.60); RDW 14.6 % (11.9-15.9); WHITE BLOOD COUNT 8.1 K/mm3 (4.0-10.0)
[2020-07-23 16:39] LABS: ALBUMIN 3.5 g/dl (3.4-5.0); BLOOD UREA NITROGEN 7.9 mg/dL (7-18); CALCIUM 8.9 mg/dL (8.5-10.1)
[2020-07-23 16:43] LABS: BILIRUBIN,TOTAL 0.9 mg/dL (0.2-1); TOT PROT 6.9 g/dl (6.4-8.2)
[2020-07-23] MEDS ORDERED: MELATONIN 5 MG TABLETS PO SCH (22:00)
[2020-07-23] MEDS: THIAMINE HCL 100 MG TABLET (FP) PO SCH (22:03)
[2020-07-24] MEDS: hydrOXYzine PAMOATE 25 MG CAPSULE (FP) PO SCH ×5 (06:00→22:17)
[2020-07-24] MEDS: diazePAM 5 MG TABLET PO SCH ×4 (06:00→22:18)
[2020-07-24] MEDS: METHADONE HCL 40 MG DISPERSABLE TABLET PO SCH (06:01)
[2020-07-24] MEDS ORDERED: MELATONIN 5 MG TABLETS PO PRN (08:48)
[2020-07-24] MEDS: PRENATAL VITAMINS W/ FOLIC ACID TABLET (FP) PO SCH (10:26)
[2020-07-24] MEDS: GABAPENTIN 300 MG CAPSULE PO SCH (22:17)
[2020-07-24] MEDS: THIAMINE HCL 100 MG TABLET (FP) PO SCH (22:17)
[2020-07-24] MEDS: risperiDONE 2 MG TABLET PO SCH (22:17)
[2020-07-25] MEDS: hydrOXYzine PAMOATE 25 MG CAPSULE (FP) PO SCH ×5 (06:25→22:37)
[2020-07-25] MEDS: METHADONE HCL 40 MG DISPERSABLE TABLET PO SCH (06:25)
[2020-07-25] MEDS: diazePAM 5 MG TABLET PO SCH ×3 (06:26→22:36)
[2020-07-25] MEDS: GABAPENTIN 300 MG CAPSULE PO SCH ×2 (10:15→22:34)
[2020-07-25] MEDS: PRENATAL VITAMINS W/ FOLIC ACID TABLET (FP) PO SCH (10:15)
[2020-07-25] MEDS: diazePAM 5 MG TABLET PO PRN ×2 (10:16→18:12)
[2020-07-25] MEDS: THIAMINE HCL 100 MG TABLET (FP) PO SCH (22:34)
[2020-07-25] MEDS: risperiDONE 2 MG TABLET PO SCH (22:34)
[2020-07-26] MEDS: hydrOXYzine PAMOATE 25 MG CAPSULE (FP) PO SCH ×5 (06:08→22:33)
[2020-07-26] MEDS: diazePAM 5 MG TABLET PO SCH ×2 (06:08→17:44)
[2020-07-26] MEDS: METHADONE HCL 40 MG DISPERSABLE TABLET PO SCH (06:08)
[2020-07-26] MEDS: PRENATAL VITAMINS W/ FOLIC ACID TABLET (FP) PO SCH (09:59)
[2020-07-26] MEDS: GABAPENTIN 300 MG CAPSULE PO SCH ×2 (09:59→22:33)
[2020-07-26] MEDS: risperiDONE 2 MG TABLET PO SCH (22:33)
[2020-07-26] MEDS: THIAMINE HCL 100 MG TABLET (FP) PO SCH (22:33)
[2020-07-27] MEDS: METHADONE HCL 40 MG DISPERSABLE TABLET PO SCH (05:29)
[2020-07-27] MEDS: hydrOXYzine PAMOATE 25 MG CAPSULE (FP) PO SCH ×2 (05:29→10:13)
[2020-07-27] MEDS ORDERED: diazePAM 5 MG TABLET PO ONE (06:00)
[2020-07-27 09:43] VITALS: BP 129/86; PULSE 100; TEMP 97.8
[2020-07-27] MEDS: GABAPENTIN 300 MG CAPSULE PO SCH (10:13)
[2020-07-27] MEDS: PRENATAL VITAMINS W/ FOLIC ACID TABLET (FP) PO SCH (10:13)
== END 2020-07-27 10:51 | disposition home or self-care (01) | DRG 773 ==
LOC: YASAS 10:13 → Y6N 13:18
PROVIDERS: ADMIT Allergy & Immunology; ATTEND Allergy & Immunology
PROC: HZ2ZZZZ Detoxification Services for Substance Abuse Treatment (ICD-10-PCS; principal; 2020-07-23)
DX: F10.230 Alcohol dependence with withdrawal, uncomplicated (principal); F11.20 Opioid dependence, uncomplicated; F13.20 Sedative, hypnotic or anxiolytic dependence, uncomplicated; F14.20 Cocaine dependence, uncomplicated; F19.20 Other psychoactive substance dependence, uncomplicated; F12.20 Cannabis dependence, uncomplicated; F17.210 Nicotine dependence, cigarettes, uncomplicated; F19.282 Other psychoactive substance dependence with psychoactive substance-induced sleep disorder; F19.24 Other psychoactive substance dependence with psychoactive substance-induced mood disorder; F25.9 Schizoaffective disorder, unspecified; F32.9 Major depressive disorder, single episode, unspecified; J45.909 Unspecified asthma, uncomplicated; B18.2 Chronic viral hepatitis C; M54.5 Low back pain; R76.11 Nonspecific reaction to tuberculin skin test without active tuberculosis
CPT/HCPCS: 36415; 71046-TC-FY; 80053; 85027; 86780; C9803; U0003

== ENCOUNTER 2020-08-31 12:54 | Inpatient (IN) | payer OTHER ==
[2020-08-31 14:41] VITALS: BMI 26.2
[2020-08-31] MEDS ORDERED: ALBUTEROL SO4 HFA INHALER IH PRN (14:58)
[2020-08-31] MEDS ORDERED: ONDANSETRON *ODT* 4 MG TABLET SL PRN (14:59)
[2020-08-31] MEDS ORDERED: ACETAMINOPHEN 325 MG TABLET (FP) PO PRN ×2 (14:59)
[2020-08-31] MEDS ORDERED: IBUPROFEN 400 MG TABLET (FP) PO PRN (14:59)
[2020-08-31] MEDS ORDERED: MAGNESIUM CITRATE 300 ML BOTTLE PO PRN (14:59)
[2020-08-31] MEDS ORDERED: BISMUTH SUBSALICYLATE 262 MG/15 ML BTL PO PRN (14:59)
[2020-08-31] MEDS ORDERED: METHOCARBAMOL 500 MG TABLET PO PRN (14:59)
[2020-08-31] MEDS ORDERED: NICOTINE POLACRILEX 2 MG GUM BUC PRN (14:59)
[2020-08-31] MEDS ORDERED: MAGNESIUM HYDROX 2400MG/30ML ORAL SUSPENSION 30 ML CUP PO PRN (14:59)
[2020-08-31] MEDS ORDERED: MENTHOL/PHENOL 1 EACH UD MM PRN (14:59)
[2020-08-31] MEDS ORDERED: MAG HYDROX/AL HYDROX/SIMETH 30 ML UNIT-DOSE CUP PO PRN (14:59)
[2020-08-31] MEDS ORDERED: NALOXONE (NARCAN) HCL 4 MG/0.1 ML SPRAY NS PRN (14:59)
[2020-08-31] MEDS: chlordiazePOXIDE HCL 25 MG CAPSULE PO PRN ×2 (15:53→20:10)
[2020-08-31] MEDS: NICOTINE 21 MG/24 HOURS TOPICAL PATCH TD SCH (15:54)
[2020-08-31] MEDS: PRENATAL VITAMINS W/ FOLIC ACID TABLET (FP) PO SCH (15:55)
[2020-08-31 16:56] LABS: HEMATOCRIT 46.2 % (35.4-49); HEMOGLOBIN 15.1 GM/dL (11.7-16.9); MCH 30.1 pg (25.7-33.7); MCHC 32.7 g/dl (32.0-35.9); MEAN CELL VOLUME 92.2 fl (80-96); MEAN PLT VOLUME 9.8 fl (7.5-11.1); PLATELET COUNT 161 K/MM3 (134-434); RBC 5.02 M/mm3 (4.00-5.60); RDW 14.7 % (11.9-15.9); WHITE BLOOD COUNT 8.1 K/mm3 (4.0-10.0)
[2020-08-31 17:00] LABS: POTASSIUM 4.1 mmol/L (3.5-5.1)
[2020-08-31 17:03] LABS: ALBUMIN 3.9 g/dl (3.4-5.0); BLOOD UREA NITROGEN 8.1 mg/dL (7-18); CALCIUM 9.4 mg/dL (8.5-10.1)
[2020-08-31 17:09] LABS: BILIRUBIN,TOTAL 0.3 mg/dL (0.2-1); TOT PROT 7.6 g/dl (6.4-8.2)
[2020-08-31] MEDS: chlordiazePOXIDE HCL 25 MG CAPSULE PO SCH ×2 (17:09→22:40)
[2020-08-31] MEDS: hydrOXYzine PAMOATE 25 MG CAPSULE (FP) PO SCH ×2 (17:09→22:40)
[2020-08-31] MEDS: GABAPENTIN 300 MG CAPSULE PO SCH (22:40)
[2020-08-31] MEDS: THIAMINE HCL 100 MG TABLET (FP) PO SCH (22:40)
[2020-08-31] MEDS: MELATONIN 5 MG TABLETS PO SCH (22:40)
[2020-09-01] MEDS: chlordiazePOXIDE HCL 25 MG CAPSULE PO SCH ×4 (07:51→22:06)
[2020-09-01] MEDS: hydrOXYzine PAMOATE 25 MG CAPSULE (FP) PO SCH ×5 (07:52→22:08)
[2020-09-01] MEDS: METHADONE HCL 40 MG DISPERSABLE TABLET PO SCH (09:09)
[2020-09-01] MEDS: PRENATAL VITAMINS W/ FOLIC ACID TABLET (FP) PO SCH (10:24)
[2020-09-01] MEDS: GABAPENTIN 300 MG CAPSULE PO SCH ×2 (10:25→22:06)
[2020-09-01] MEDS: NICOTINE 21 MG/24 HOURS TOPICAL PATCH TD SCH (10:27)
[2020-09-01 21:20] VITALS: BP 130/86; PULSE 81; TEMP 97.5
[2020-09-01] MEDS: MELATONIN 5 MG TABLETS PO SCH (22:07)
[2020-09-01] MEDS: THIAMINE HCL 100 MG TABLET (FP) PO SCH (22:07)
[2020-09-02] MEDS ORDERED: chlordiazePOXIDE HCL 25 MG CAPSULE PO SCH (05:00)
[2020-09-02] MEDS: hydrOXYzine PAMOATE 25 MG CAPSULE (FP) PO SCH (05:35)
[2020-09-02] MEDS: METHADONE HCL 40 MG DISPERSABLE TABLET PO SCH (05:35)
[2020-09-02] MEDS ORDERED: MASKS NR ONE (05:59)
[2020-09-03] MEDS ORDERED: chlordiazePOXIDE HCL 10 MG CAPSULE PO PRN
[2020-09-03] MEDS ORDERED: chlordiazePOXIDE HCL 10 MG CAPSULE PO SCH (05:00)
[2020-09-04] MEDS ORDERED: chlordiazePOXIDE HCL 10 MG CAPSULE PO SCH (05:00)
[2020-09-05] MEDS ORDERED: chlordiazePOXIDE HCL 10 MG CAPSULE PO ONE (05:00)
== END 2020-09-02 06:45 | disposition home or self-care (01) | DRG 773 ==
LOC: YASAS 12:54 → Y6N 15:04
PROVIDERS: ADMIT Allergy & Immunology; ATTEND Allergy & Immunology
PROC: HZ2ZZZZ Detoxification Services for Substance Abuse Treatment (ICD-10-PCS; principal; 2020-08-31)
DX: F10.230 Alcohol dependence with withdrawal, uncomplicated (principal); F11.20 Opioid dependence, uncomplicated; F13.20 Sedative, hypnotic or anxiolytic dependence, uncomplicated; F12.20 Cannabis dependence, uncomplicated; F17.210 Nicotine dependence, cigarettes, uncomplicated; F25.9 Schizoaffective disorder, unspecified; F39 Unspecified mood [affective] disorder; F31.9 Bipolar disorder, unspecified; J45.909 Unspecified asthma, uncomplicated; B18.2 Chronic viral hepatitis C; M54.5 Low back pain; G89.29 Other chronic pain; R76.11 Nonspecific reaction to tuberculin skin test without active tuberculosis; Z91.5 Personal history of self-harm; Z56.0 Unemployment, unspecified; Z59.0 Homelessness
CPT/HCPCS: 36415; 80053; 85027; 86780; C9803; U0003; U0005

== ENCOUNTER 2020-10-16 10:19 | Inpatient (IN) | payer OTHER ==
[2020-10-16 11:11] VITALS: BMI 25.4
[2020-10-16] MEDS ORDERED: MAGNESIUM HYDROX 2400MG/30ML ORAL SUSPENSION 30 ML CUP PO PRN (11:40)
[2020-10-16] MEDS ORDERED: MAGNESIUM CITRATE 300 ML BOTTLE PO PRN (11:40)
[2020-10-16] MEDS ORDERED: ONDANSETRON *ODT* 4 MG TABLET SL PRN (11:40)
[2020-10-16] MEDS ORDERED: IBUPROFEN 400 MG TABLET (FP) PO PRN (11:40)
[2020-10-16] MEDS ORDERED: ACETAMINOPHEN 325 MG TABLET (FP) PO PRN ×2 (11:40)
[2020-10-16] MEDS ORDERED: MENTHOL/PHENOL 1 EACH UD MM PRN (11:40)
[2020-10-16] MEDS ORDERED: BISMUTH SUBSALICYLATE 262 MG/15 ML BTL PO PRN (11:40)
[2020-10-16] MEDS ORDERED: MAG HYDROX/AL HYDROX/SIMETH 30 ML UNIT-DOSE CUP PO PRN (11:40)
[2020-10-16] MEDS: PRENATAL VITAMINS W/ FOLIC ACID TABLET (FP) PO SCH (13:36)
[2020-10-16] MEDS: hydrOXYzine PAMOATE 25 MG CAPSULE (FP) PO SCH ×3 (13:36→22:14)
[2020-10-16] MEDS: diazePAM 5 MG TABLET PO PRN (13:37)
[2020-10-16 16:57] LABS: HEMATOCRIT 42.8 % (35.4-49); HEMOGLOBIN 14.3 GM/dL (11.7-16.9); MCH 30.5 pg (25.7-33.7); MCHC 33.3 g/dl (32.0-35.9); MEAN CELL VOLUME 91.4 fl (80-96); MEAN PLT VOLUME 9.4 fl (7.5-11.1); PLATELET COUNT 194 K/MM3 (134-434); RBC 4.69 M/mm3 (4.00-5.60); RDW 14.5 % (11.9-15.9); WHITE BLOOD COUNT 7.1 K/mm3 (4.0-10.0)
[2020-10-16 17:17] LABS: ALBUMIN 3.8 g/dl (3.4-5.0); BLOOD UREA NITROGEN 5.4 mg/dL (7-18); CALCIUM 8.8 mg/dL (8.5-10.1)
[2020-10-16 17:21] LABS: BILIRUBIN,TOTAL 0.3 mg/dL (0.2-1); CREATININE 0.9 mg/dL (0.55-1.3); TOT PROT 7.2 g/dl (6.4-8.2)
[2020-10-16] MEDS: diazePAM 5 MG TABLET PO SCH ×2 (18:40→22:14)
[2020-10-16] MEDS ORDERED: MELATONIN 5 MG TABLETS PO SCH (22:00)
[2020-10-16] MEDS: THIAMINE HCL 100 MG TABLET (FP) PO SCH (22:14)
[2020-10-16] MEDS: MELATONIN 5 MG TABLETS PO PRN (22:14)
[2020-10-16] MEDS: risperiDONE 2 MG TABLET PO SCH (22:14)
[2020-10-17] MEDS: diazePAM 5 MG TABLET PO SCH ×4 (05:24→22:03)
[2020-10-17] MEDS: hydrOXYzine PAMOATE 25 MG CAPSULE (FP) PO SCH ×5 (05:24→22:04)
[2020-10-17] MEDS ORDERED: METHADONE HCL 40 MG DISPERSABLE TABLET PO SCH (07:30)
[2020-10-17] MEDS ORDERED: METHADONE HCL 10 MG TABLET ONE (07:39)
[2020-10-17] MEDS ORDERED: METHADONE HCL 40 MG DISPERSABLE TABLET ONE (07:40)
[2020-10-17] MEDS: METHADONE 160 MG, METHADONE 10 MG PO SCH (07:41)
[2020-10-17] MEDS ORDERED: ALBUTEROL SO4 HFA INHALER IH PRN (09:17)
[2020-10-17] MEDS: METHOCARBAMOL 500 MG TABLET PO PRN ×2 (10:17→22:04)
[2020-10-17] MEDS: PRENATAL VITAMINS W/ FOLIC ACID TABLET (FP) PO SCH (10:17)
[2020-10-17] MEDS: GABAPENTIN 300 MG CAPSULE PO SCH ×2 (10:17→22:04)
[2020-10-17] MEDS: diazePAM 5 MG TABLET PO PRN (14:12)
[2020-10-17] MEDS: THIAMINE HCL 100 MG TABLET (FP) PO SCH (22:04)
[2020-10-17] MEDS: MELATONIN 5 MG TABLETS PO PRN (22:05)
[2020-10-17] MEDS: risperiDONE 2 MG TABLET PO SCH (22:06)
[2020-10-18] MEDS ORDERED: METHADONE HCL 10 MG TABLET ONE (04:27)
[2020-10-18] MEDS ORDERED: METHADONE HCL 40 MG DISPERSABLE TABLET ONE (04:28)
[2020-10-18] MEDS: diazePAM 5 MG TABLET PO SCH ×3 (05:31→22:35)
[2020-10-18] MEDS: METHADONE 160 MG, METHADONE 10 MG PO SCH (05:32)
[2020-10-18] MEDS: hydrOXYzine PAMOATE 25 MG CAPSULE (FP) PO SCH ×5 (05:32→22:34)
[2020-10-18] MEDS: PRENATAL VITAMINS W/ FOLIC ACID TABLET (FP) PO SCH (10:26)
[2020-10-18] MEDS: GABAPENTIN 300 MG CAPSULE PO SCH ×2 (10:26→22:34)
[2020-10-18] MEDS: diazePAM 5 MG TABLET PO PRN ×2 (10:27→17:51)
[2020-10-18] MEDS: THIAMINE HCL 100 MG TABLET (FP) PO SCH (22:33)
[2020-10-18] MEDS: MELATONIN 5 MG TABLETS PO PRN (22:33)
[2020-10-18] MEDS: risperiDONE 2 MG TABLET PO SCH (22:34)
[2020-10-19] MEDS ORDERED: METHADONE HCL 10 MG TABLET ONE (04:34)
[2020-10-19] MEDS ORDERED: METHADONE HCL 40 MG DISPERSABLE TABLET ONE (04:34)
[2020-10-19 06:08] LABS: SARS-CoV-2 NAA Not Detected (Not Detected)
[2020-10-19] MEDS: METHADONE 160 MG, METHADONE 10 MG PO SCH (06:13)
[2020-10-19] MEDS: hydrOXYzine PAMOATE 25 MG CAPSULE (FP) PO SCH ×5 (06:13→22:07)
[2020-10-19] MEDS: diazePAM 5 MG TABLET PO SCH ×2 (06:13→17:32)
[2020-10-19] MEDS: PRENATAL VITAMINS W/ FOLIC ACID TABLET (FP) PO SCH (10:15)
[2020-10-19] MEDS: GABAPENTIN 300 MG CAPSULE PO SCH ×2 (10:16→22:07)
[2020-10-19] MEDS: diazePAM 5 MG TABLET PO PRN (10:16)
[2020-10-19] MEDS: AMMONIUM LACTATE 12% LOTION 225 GM BOTTLE TP SCH ×2 (14:57→22:09)
[2020-10-19] MEDS ORDERED: diazePAM 5 MG TABLET PO ONE (22:00)
[2020-10-19] MEDS: MELATONIN 5 MG TABLETS PO PRN (22:07)
[2020-10-19] MEDS: THIAMINE HCL 100 MG TABLET (FP) PO SCH (22:07)
[2020-10-19] MEDS: risperiDONE 2 MG TABLET PO SCH (22:08)
[2020-10-20] MEDS ORDERED: METHADONE HCL 10 MG TABLET ONE (04:27)
[2020-10-20] MEDS ORDERED: METHADONE HCL 40 MG DISPERSABLE TABLET ONE (04:27)
[2020-10-20] MEDS: hydrOXYzine PAMOATE 25 MG CAPSULE (FP) PO SCH ×2 (05:17→10:33)
[2020-10-20] MEDS: METHADONE 160 MG, METHADONE 10 MG PO SCH (05:18)
[2020-10-20] MEDS ORDERED: diazePAM 5 MG TABLET PO ONE (06:00)
[2020-10-20 09:03] VITALS: BP 126/79; PULSE 70; TEMP 97.3
[2020-10-20] MEDS: GABAPENTIN 300 MG CAPSULE PO SCH (10:33)
[2020-10-20] MEDS: AMMONIUM LACTATE 12% LOTION 225 GM BOTTLE TP SCH (10:33)
[2020-10-20] MEDS: PRENATAL VITAMINS W/ FOLIC ACID TABLET (FP) PO SCH (10:33)
== END 2020-10-20 12:22 | disposition other institution (70) | DRG 773 ==
LOC: YASAS 10:19 → Y3N 12:01
PROVIDERS: ADMIT Allergy & Immunology; ATTEND Allergy & Immunology
PROC: HZ2ZZZZ Detoxification Services for Substance Abuse Treatment (ICD-10-PCS; principal; 2020-10-16)
DX: F10.230 Alcohol dependence with withdrawal, uncomplicated (principal); F11.20 Opioid dependence, uncomplicated; F12.20 Cannabis dependence, uncomplicated; F19.20 Other psychoactive substance dependence, uncomplicated; F25.9 Schizoaffective disorder, unspecified; F19.282 Other psychoactive substance dependence with psychoactive substance-induced sleep disorder; F19.24 Other psychoactive substance dependence with psychoactive substance-induced mood disorder; J45.909 Unspecified asthma, uncomplicated; B18.2 Chronic viral hepatitis C; Z62.810 Personal history of physical and sexual abuse in childhood; Z91.5 Personal history of self-harm; Z99.89 Dependence on other enabling machines and devices; Z56.0 Unemployment, unspecified; Z59.0 Homelessness; Z87.891 Personal history of nicotine dependence
CPT/HCPCS: 36415; 80053; 85027; 86780; C9803; U0003; U0005

== ENCOUNTER 2020-10-20 12:28 | Inpatient (IN) | payer OTHER ==
[2020-10-20] MEDS ORDERED: IBUPROFEN 400 MG TABLET (FP) PO PRN (14:28)
[2020-10-20] MEDS ORDERED: ACETAMINOPHEN 325 MG TABLET (FP) PO PRN (14:28)
[2020-10-20] MEDS ORDERED: guaiFENesin 200 MG/10 ML 10 ML UNIT-DOSE CUPS PO PRN (14:28)
[2020-10-20] MEDS ORDERED: MAG HYDROX/AL HYDROX/SIMETH 30 ML UNIT-DOSE CUP PO PRN (14:28)
[2020-10-20] MEDS ORDERED: LOPERAMIDE HCL 2 MG CAPSULE PO PRN (14:28)
[2020-10-20] MEDS ORDERED: P-EPHED 60MG/TRIPROLIDI 2.5MG TABLET PO PRN (14:28)
[2020-10-20] MEDS ORDERED: MENTHOL/PHENOL 1 EACH UD MM PRN (14:28)
[2020-10-20] MEDS ORDERED: MAGNESIUM HYDROX 2400MG/30ML ORAL SUSPENSION 30 ML CUP PO PRN (14:28)
[2020-10-20] MEDS ORDERED: MAGNESIUM CITRATE 300 ML BOTTLE PO PRN (14:28)
[2020-10-20] MEDS ORDERED: ALBUTEROL SO4 HFA INHALER IH PRN (14:30)
[2020-10-20] MEDS: hydrOXYzine PAMOATE 25 MG CAPSULE (FP) PO PRN (16:16)
[2020-10-20] MEDS ORDERED: MELATONIN 5 MG TABLETS PO SCH (22:00)
[2020-10-20] MEDS: THIAMINE HCL 100 MG TABLET (FP) PO SCH (22:08)
[2020-10-20] MEDS: GABAPENTIN 300 MG CAPSULE PO SCH (22:08)
[2020-10-20] MEDS: risperiDONE 2 MG TABLET PO SCH (22:40)
[2020-10-21] MEDS ORDERED: METHADONE HCL 40 MG DISPERSABLE TABLET PO SCH (06:00)
[2020-10-21] MEDS ORDERED: METHADONE HCL 40 MG DISPERSABLE TABLET ONE (06:11)
[2020-10-21] MEDS ORDERED: METHADONE HCL 10 MG TABLET ONE (06:11)
[2020-10-21] MEDS: METHADONE 160 MG, METHADONE 10 MG PO SCH (06:46)
[2020-10-21] MEDS: PRENATAL VITAMINS W/ FOLIC ACID TABLET (FP) PO SCH (09:50)
[2020-10-21] MEDS: GABAPENTIN 300 MG CAPSULE PO SCH ×2 (09:50→21:29)
[2020-10-21] MEDS: hydrOXYzine PAMOATE 25 MG CAPSULE (FP) PO PRN ×2 (11:40→18:16)
[2020-10-21] MEDS ORDERED: PT OWN MED DRAWER 7, Y5N ONE ×2 (18:16→20:22)
[2020-10-21] MEDS: AMMONIUM LACTATE 12% LOTION 225 GM BOTTLE TP SCH (21:29)
[2020-10-21] MEDS: THIAMINE HCL 100 MG TABLET (FP) PO SCH (21:29)
[2020-10-21] MEDS: risperiDONE 2 MG TABLET PO SCH (22:26)
[2020-10-22] MEDS ORDERED: METHADONE HCL 10 MG TABLET ONE (03:02)
[2020-10-22] MEDS ORDERED: METHADONE HCL 40 MG DISPERSABLE TABLET ONE (03:02)
[2020-10-22] MEDS: METHADONE 160 MG, METHADONE 10 MG PO SCH (06:36)
[2020-10-22] MEDS: hydrOXYzine PAMOATE 25 MG CAPSULE (FP) PO PRN ×3 (06:38→21:42)
[2020-10-22] MEDS: PRENATAL VITAMINS W/ FOLIC ACID TABLET (FP) PO SCH (09:52)
[2020-10-22] MEDS: GABAPENTIN 300 MG CAPSULE PO SCH ×2 (09:52→21:42)
[2020-10-22] MEDS: AMMONIUM LACTATE 12% LOTION 225 GM BOTTLE TP SCH ×2 (09:53→21:42)
[2020-10-22] MEDS ORDERED: PT OWN MED DRAWER 7, Y5N ONE (19:46)
[2020-10-22] MEDS: MELATONIN 5 MG TABLETS PO PRN (21:42)
[2020-10-22] MEDS: THIAMINE HCL 100 MG TABLET (FP) PO SCH (21:42)
[2020-10-22] MEDS: risperiDONE 2 MG TABLET PO SCH (21:44)
[2020-10-23] MEDS ORDERED: METHADONE HCL 10 MG TABLET ONE (03:49)
[2020-10-23] MEDS ORDERED: METHADONE HCL 40 MG DISPERSABLE TABLET ONE (03:49)
[2020-10-23] MEDS: METHADONE 160 MG, METHADONE 10 MG PO SCH (06:14)
[2020-10-23] MEDS: PRENATAL VITAMINS W/ FOLIC ACID TABLET (FP) PO SCH (09:43)
[2020-10-23] MEDS: GABAPENTIN 300 MG CAPSULE PO SCH ×2 (09:44→21:22)
[2020-10-23] MEDS: hydrOXYzine PAMOATE 25 MG CAPSULE (FP) PO PRN ×3 (09:45→21:20)
[2020-10-23] MEDS: AMMONIUM LACTATE 12% LOTION 225 GM BOTTLE TP SCH ×2 (09:46→21:24)
[2020-10-23] MEDS ORDERED: hydrOXYzine PAMOATE 50 MG CAPSULE (FP) PO ONE (18:20)
[2020-10-23] MEDS: METHOCARBAMOL 500 MG TABLET PO PRN (18:43)
[2020-10-23] MEDS ORDERED: PT OWN MED DRAWER 7, Y5N ONE (19:51)
[2020-10-23] MEDS: risperiDONE 2 MG TABLET PO SCH (21:20)
[2020-10-23] MEDS: THIAMINE HCL 100 MG TABLET (FP) PO SCH (21:20)
[2020-10-23] MEDS: MELATONIN 5 MG TABLETS PO PRN (21:21)
[2020-10-24] MEDS ORDERED: METHADONE HCL 10 MG TABLET ONE (03:49)
[2020-10-24] MEDS ORDERED: METHADONE HCL 40 MG DISPERSABLE TABLET ONE (03:49)
[2020-10-24] MEDS: METHADONE 160 MG, METHADONE 10 MG PO SCH (06:13)
[2020-10-24] MEDS: GABAPENTIN 300 MG CAPSULE PO SCH ×2 (09:51→21:45)
[2020-10-24] MEDS: AMMONIUM LACTATE 12% LOTION 225 GM BOTTLE TP SCH ×2 (09:52→21:46)
[2020-10-24] MEDS: hydrOXYzine PAMOATE 25 MG CAPSULE (FP) PO PRN ×3 (09:52→18:25)
[2020-10-24] MEDS: PRENATAL VITAMINS W/ FOLIC ACID TABLET (FP) PO SCH (09:52)
[2020-10-24] MEDS: METHOCARBAMOL 500 MG TABLET PO PRN ×2 (09:54→18:25)
[2020-10-24] MEDS ORDERED: COVID-19 VAC,AD26(JANSSEN)/PF 0.5 ML IM ONE (10:00)
[2020-10-24] MEDS: BACITRACIN 0.9 GM PACKET TP SCH ×2 (13:15→21:45)
[2020-10-24] MEDS: THIAMINE HCL 100 MG TABLET (FP) PO SCH (21:45)
[2020-10-24] MEDS: risperiDONE 2 MG TABLET PO SCH (21:46)
[2020-10-24] MEDS: MELATONIN 5 MG TABLETS PO PRN (21:46)
[2020-10-25] MEDS ORDERED: METHADONE HCL 10 MG TABLET ONE (03:34)
[2020-10-25] MEDS ORDERED: METHADONE HCL 40 MG DISPERSABLE TABLET ONE (03:35)
[2020-10-25] MEDS: METHADONE 160 MG, METHADONE 10 MG PO SCH (06:09)
[2020-10-25] MEDS: hydrOXYzine PAMOATE 25 MG CAPSULE (FP) PO PRN ×3 (09:50→18:10)
[2020-10-25] MEDS: PRENATAL VITAMINS W/ FOLIC ACID TABLET (FP) PO SCH (09:50)
[2020-10-25] MEDS: GABAPENTIN 300 MG CAPSULE PO SCH ×2 (09:50→21:09)
[2020-10-25] MEDS: METHOCARBAMOL 500 MG TABLET PO PRN ×2 (09:50→18:08)
[2020-10-25] MEDS: AMMONIUM LACTATE 12% LOTION 225 GM BOTTLE TP SCH ×2 (09:51→21:10)
[2020-10-25] MEDS: BACITRACIN 0.9 GM PACKET TP SCH ×2 (10:18→21:10)
[2020-10-25] MEDS: MELATONIN 5 MG TABLETS PO PRN (21:09)
[2020-10-25] MEDS: THIAMINE HCL 100 MG TABLET (FP) PO SCH (21:09)
[2020-10-26] MEDS ORDERED: METHADONE HCL 10 MG TABLET ONE (03:20)
[2020-10-26] MEDS ORDERED: METHADONE HCL 40 MG DISPERSABLE TABLET ONE (03:20)
[2020-10-26] MEDS: METHADONE 160 MG, METHADONE 10 MG PO SCH (06:10)
[2020-10-26] MEDS: METHOCARBAMOL 500 MG TABLET PO PRN (06:13)
[2020-10-26] MEDS: hydrOXYzine PAMOATE 25 MG CAPSULE (FP) PO PRN ×5 (06:14→23:15)
[2020-10-26] MEDS: PRENATAL VITAMINS W/ FOLIC ACID TABLET (FP) PO SCH (09:39)
[2020-10-26] MEDS: GABAPENTIN 300 MG CAPSULE PO SCH ×2 (09:39→21:13)
[2020-10-26] MEDS: AMMONIUM LACTATE 12% LOTION 225 GM BOTTLE TP SCH ×2 (09:40→21:14)
[2020-10-26] MEDS: BACITRACIN 0.9 GM PACKET TP SCH ×2 (09:40→21:14)
[2020-10-26] MEDS: ARIPiprazole 5 MG TABLET PO SCH (09:40)
[2020-10-26] MEDS: THIAMINE HCL 100 MG TABLET (FP) PO SCH (21:13)
[2020-10-26] MEDS: MELATONIN 5 MG TABLETS PO PRN (21:14)
[2020-10-27] MEDS ORDERED: METHADONE HCL 10 MG TABLET ONE (05:02)
[2020-10-27] MEDS ORDERED: METHADONE HCL 40 MG DISPERSABLE TABLET ONE (05:03)
[2020-10-27] MEDS: hydrOXYzine PAMOATE 25 MG CAPSULE (FP) PO PRN ×4 (05:19→18:21)
[2020-10-27] MEDS: METHOCARBAMOL 500 MG TABLET PO PRN ×3 (05:20→21:47)
[2020-10-27] MEDS: METHADONE 160 MG, METHADONE 10 MG PO SCH (06:02)
[2020-10-27 07:46] LABS: SARS-CoV-2 NAA NOT DETECTED
[2020-10-27] MEDS: ARIPiprazole 5 MG TABLET PO SCH (09:38)
[2020-10-27] MEDS: GABAPENTIN 300 MG CAPSULE PO SCH ×2 (09:38→21:47)
[2020-10-27] MEDS: PRENATAL VITAMINS W/ FOLIC ACID TABLET (FP) PO SCH (09:39)
[2020-10-27] MEDS: AMMONIUM LACTATE 12% LOTION 225 GM BOTTLE TP SCH ×2 (09:39→21:47)
[2020-10-27] MEDS: BACITRACIN 0.9 GM PACKET TP SCH ×2 (09:39→21:46)
[2020-10-27] MEDS: THIAMINE HCL 100 MG TABLET (FP) PO SCH (21:46)
[2020-10-27] MEDS: MELATONIN 5 MG TABLETS PO PRN (21:47)
[2020-10-28] MEDS ORDERED: METHADONE HCL 10 MG TABLET ONE (03:46)
[2020-10-28] MEDS ORDERED: METHADONE HCL 40 MG DISPERSABLE TABLET ONE (03:46)
[2020-10-28] MEDS: METHADONE 160 MG, METHADONE 10 MG PO SCH (05:38)
[2020-10-28] MEDS: hydrOXYzine PAMOATE 25 MG CAPSULE (FP) PO PRN ×4 (05:40→20:07)
[2020-10-28] MEDS: METHOCARBAMOL 500 MG TABLET PO PRN ×2 (05:40→17:44)
[2020-10-28] MEDS: PRENATAL VITAMINS W/ FOLIC ACID TABLET (FP) PO SCH (09:42)
[2020-10-28] MEDS: BACITRACIN 0.9 GM PACKET TP SCH ×2 (09:42→21:11)
[2020-10-28] MEDS: ARIPiprazole 5 MG TABLET PO SCH (09:42)
[2020-10-28] MEDS: GABAPENTIN 300 MG CAPSULE PO SCH ×2 (09:42→21:12)
[2020-10-28] MEDS: AMMONIUM LACTATE 12% LOTION 225 GM BOTTLE TP SCH ×2 (09:43→21:12)
[2020-10-28] MEDS: THIAMINE HCL 100 MG TABLET (FP) PO SCH (21:11)
[2020-10-28] MEDS: MELATONIN 5 MG TABLETS PO PRN (21:12)
[2020-10-29] MEDS: METHADONE 160 MG, METHADONE 10 MG PO SCH (06:18)
[2020-10-29] MEDS ORDERED: METHADONE HCL 10 MG TABLET ONE (06:18)
[2020-10-29] MEDS ORDERED: METHADONE HCL 40 MG DISPERSABLE TABLET ONE (06:18)
[2020-10-29] MEDS: hydrOXYzine PAMOATE 25 MG CAPSULE (FP) PO PRN ×4 (06:20→21:06)
[2020-10-29] MEDS: METHOCARBAMOL 500 MG TABLET PO PRN ×2 (06:22→16:55)
[2020-10-29] MEDS: PRENATAL VITAMINS W/ FOLIC ACID TABLET (FP) PO SCH (09:45)
[2020-10-29] MEDS: GABAPENTIN 300 MG CAPSULE PO SCH ×2 (09:45→21:05)
[2020-10-29] MEDS: ARIPiprazole 5 MG TABLET PO SCH (09:46)
[2020-10-29] MEDS: BACITRACIN 0.9 GM PACKET TP SCH ×2 (09:46→21:07)
[2020-10-29] MEDS: AMMONIUM LACTATE 12% LOTION 225 GM BOTTLE TP SCH ×2 (09:47→21:28)
[2020-10-29] MEDS: MELATONIN 5 MG TABLETS PO PRN (21:06)
[2020-10-29] MEDS: THIAMINE HCL 100 MG TABLET (FP) PO SCH (21:06)
[2020-10-30] MEDS: hydrOXYzine PAMOATE 25 MG CAPSULE (FP) PO PRN ×5 (03:16→23:47)
[2020-10-30] MEDS ORDERED: METHADONE HCL 10 MG TABLET ONE (04:03)
[2020-10-30] MEDS ORDERED: METHADONE HCL 40 MG DISPERSABLE TABLET ONE (04:04)
[2020-10-30] MEDS: METHOCARBAMOL 500 MG TABLET PO PRN ×3 (06:06→23:47)
[2020-10-30] MEDS: METHADONE 160 MG, METHADONE 10 MG PO SCH (06:06)
[2020-10-30] MEDS: GABAPENTIN 300 MG CAPSULE PO SCH ×2 (09:52→21:11)
[2020-10-30] MEDS: ARIPiprazole 5 MG TABLET PO SCH (09:52)
[2020-10-30] MEDS: BACITRACIN 0.9 GM PACKET TP SCH ×2 (09:53→21:11)
[2020-10-30] MEDS: PRENATAL VITAMINS W/ FOLIC ACID TABLET (FP) PO SCH (09:53)
[2020-10-30] MEDS: AMMONIUM LACTATE 12% LOTION 225 GM BOTTLE TP SCH ×2 (09:53→21:12)
[2020-10-30] MEDS ORDERED: MASKS NR ONE (17:19)
[2020-10-30] MEDS: THIAMINE HCL 100 MG TABLET (FP) PO SCH (21:11)
[2020-10-30] MEDS: MELATONIN 5 MG TABLETS PO PRN (21:11)
[2020-10-31] MEDS ORDERED: METHADONE HCL 10 MG TABLET ONE (03:19)
[2020-10-31] MEDS ORDERED: METHADONE HCL 40 MG DISPERSABLE TABLET ONE (03:19)
[2020-10-31] MEDS: hydrOXYzine PAMOATE 25 MG CAPSULE (FP) PO PRN (06:13)
[2020-10-31] MEDS: METHADONE 160 MG, METHADONE 10 MG PO SCH (06:13)
[2020-10-31] MEDS: METHOCARBAMOL 500 MG TABLET PO PRN (06:13)
[2020-10-31 06:47] VITALS: BP 112/70; PULSE 71; TEMP 97.5
[2020-10-31] MEDS: BACITRACIN 0.9 GM PACKET TP SCH (09:07)
[2020-10-31] MEDS: ARIPiprazole 5 MG TABLET PO SCH (09:07)
[2020-10-31] MEDS: AMMONIUM LACTATE 12% LOTION 225 GM BOTTLE TP SCH (09:07)
[2020-10-31] MEDS: PRENATAL VITAMINS W/ FOLIC ACID TABLET (FP) PO SCH (09:07)
[2020-10-31] MEDS: GABAPENTIN 300 MG CAPSULE PO SCH (09:07)
== END 2020-10-31 09:15 | disposition home or self-care (01) | DRG 772 ==
LOC: YASAS 12:28 → Y5N 12:29
PROVIDERS: ADMIT Allergy & Immunology; ATTEND Allergy & Immunology
PROC: HZ42ZZZ Group Counseling for Substance Abuse Treatment, Cognitive-Behavioral (ICD-10-PCS; principal; 2020-10-20)
DX: F10.20 Alcohol dependence, uncomplicated (principal); F11.20 Opioid dependence, uncomplicated; F13.20 Sedative, hypnotic or anxiolytic dependence, uncomplicated; F14.20 Cocaine dependence, uncomplicated; F12.20 Cannabis dependence, uncomplicated; F19.20 Other psychoactive substance dependence, uncomplicated; F25.9 Schizoaffective disorder, unspecified; F31.9 Bipolar disorder, unspecified; F41.8 Other specified anxiety disorders; F39 Unspecified mood [affective] disorder; J45.909 Unspecified asthma, uncomplicated; L85.3 Xerosis cutis; L84 Corns and callosities; M54.5 Low back pain; G89.29 Other chronic pain; R63.4 Abnormal weight loss; Z68.25 Body mass index [BMI] 25.0-25.9, adult; Z91.5 Personal history of self-harm; Z87.891 Personal history of nicotine dependence; Z59.0 Homelessness; Z56.0 Unemployment, unspecified
CPT/HCPCS: 0031A; 91303; C9803; U0003; U0005

== ENCOUNTER 2021-01-17 10:18 | Inpatient (IN) | payer OTHER ==
[2021-01-17 10:39] VITALS: BMI 25.8
[2021-01-17] MEDS ORDERED: ONDANSETRON *ODT* 4 MG TABLET SL PRN (16:51)
[2021-01-17] MEDS ORDERED: MENTHOL/PHENOL 1 EACH UD MM PRN (16:51)
[2021-01-17] MEDS ORDERED: MAGNESIUM HYDROX 2400MG/30ML ORAL SUSPENSION 30 ML CUP PO PRN (16:51)
[2021-01-17] MEDS ORDERED: ACETAMINOPHEN 325 MG TABLET (FP) PO PRN ×2 (16:51)
[2021-01-17] MEDS ORDERED: NICOTINE 10 MG CARTRIDGE (INHALER) IH PRN (16:51)
[2021-01-17] MEDS ORDERED: BISMUTH SUBSALICYLATE 524 MG/30 ML PO PRN (16:51)
[2021-01-17] MEDS ORDERED: IBUPROFEN 400 MG TABLET (FP) PO PRN (16:51)
[2021-01-17] MEDS ORDERED: MAG HYDROX/AL HYDROX/SIMETH 30 ML UNIT-DOSE CUP PO PRN (16:51)
[2021-01-17] MEDS ORDERED: MAGNESIUM CITRATE 300 ML BOTTLE PO PRN (16:51)
[2021-01-17] MEDS ORDERED: ALBUTEROL SO4 HFA INHALER IH PRN (16:57)
[2021-01-17] MEDS: diazePAM 5 MG TABLET PO PRN (17:44)
[2021-01-17] MEDS: METHOCARBAMOL 500 MG TABLET PO PRN (17:44)
[2021-01-17] MEDS ORDERED: hydrOXYzine PAMOATE 25 MG CAPSULE (FP) PO SCH (18:00)
[2021-01-17] MEDS ORDERED: MELATONIN 5 MG TABLETS PO SCH (22:00)
[2021-01-17] MEDS: THIAMINE HCL 100 MG TABLET (FP) PO SCH (22:11)
[2021-01-17] MEDS: diazePAM 5 MG TABLET PO SCH (22:12)
[2021-01-18] MEDS: diazePAM 5 MG TABLET PO SCH ×4 (05:44→22:34)
[2021-01-18] MEDS: METHOCARBAMOL 500 MG TABLET PO PRN (05:45)
[2021-01-18] MEDS ORDERED: methaDONE HCL 40 MG DISPERSABLE TABLET PO ONE (08:15)
[2021-01-18] MEDS: risperiDONE 1 MG TABLET PO SCH ×2 (10:20→22:33)
[2021-01-18] MEDS: PRENATAL VITAMINS W/ FOLIC ACID TABLET (FP) PO SCH (10:20)
[2021-01-18 11:14] LABS: HEMATOCRIT 41.7 % (35.4-49); HEMOGLOBIN 14.1 GM/dL (11.7-16.9); MCH 30.4 pg (25.7-33.7); MCHC 33.7 g/dl (32.0-35.9); MEAN CELL VOLUME 90.2 fl (80-96); MEAN PLT VOLUME 8.5 fl (7.5-11.1); PLATELET COUNT 219 10^3/uL (134-434); RBC 4.62 M/mm3 (4.00-5.60); RDW 13.6 % (11.9-15.9); WHITE BLOOD COUNT 9.6 K/mm3 (4.0-10.0)
[2021-01-18 11:26] LABS: ALBUMIN 3.8 g/dl (3.4-5.0); BLOOD UREA NITROGEN 9.1 mg/dL (7-18); CALCIUM 9.1 mg/dL (8.5-10.1)
[2021-01-18 11:30] LABS: BILIRUBIN,TOTAL 0.6 mg/dL (0.2-1); TOT PROT 7.6 g/dl (6.4-8.2)
[2021-01-18] MEDS: diazePAM 5 MG TABLET PO PRN ×2 (13:11→20:34)
[2021-01-18] MEDS: hydrOXYzine PAMOATE 25 MG CAPSULE (FP) PO PRN (13:14)
[2021-01-18] MEDS: SUVOREXANT 10 MG TABLET PO PRN (22:33)
[2021-01-18] MEDS: THIAMINE HCL 100 MG TABLET (FP) PO SCH (22:33)
[2021-01-19] MEDS: diazePAM 5 MG TABLET PO SCH ×3 (06:23→22:09)
[2021-01-19] MEDS: methaDONE HCL 40 MG DISPERSABLE TABLET PO SCH (06:23)
[2021-01-19] MEDS: METHOCARBAMOL 500 MG TABLET PO PRN ×2 (10:25→17:54)
[2021-01-19] MEDS: diazePAM 5 MG TABLET PO PRN ×2 (10:25→17:54)
[2021-01-19] MEDS: risperiDONE 1 MG TABLET PO SCH ×2 (10:26→22:09)
[2021-01-19] MEDS: PRENATAL VITAMINS W/ FOLIC ACID TABLET (FP) PO SCH (10:26)
[2021-01-19] MEDS: hydrOXYzine PAMOATE 25 MG CAPSULE (FP) PO PRN ×2 (12:38→17:54)
[2021-01-19] MEDS: SUVOREXANT 10 MG TABLET PO PRN (22:10)
[2021-01-19] MEDS: THIAMINE HCL 100 MG TABLET (FP) PO SCH (22:10)
[2021-01-20] MEDS: methaDONE HCL 40 MG DISPERSABLE TABLET PO SCH (05:40)
[2021-01-20] MEDS: diazePAM 5 MG TABLET PO SCH ×2 (06:17→17:53)
[2021-01-20] MEDS: PRENATAL VITAMINS W/ FOLIC ACID TABLET (FP) PO SCH (10:09)
[2021-01-20] MEDS: diazePAM 5 MG TABLET PO PRN ×2 (10:09→14:36)
[2021-01-20] MEDS: risperiDONE 1 MG TABLET PO SCH ×2 (10:09→22:28)
[2021-01-20] MEDS: METHOCARBAMOL 500 MG TABLET PO PRN ×3 (10:10→22:30)
[2021-01-20] MEDS: hydrOXYzine PAMOATE 25 MG CAPSULE (FP) PO PRN ×2 (16:38→22:31)
[2021-01-20] MEDS: THIAMINE HCL 100 MG TABLET (FP) PO SCH (22:28)
[2021-01-20] MEDS: SUVOREXANT 10 MG TABLET PO PRN ×2 (22:29→23:41)
[2021-01-21] MEDS ORDERED: diazePAM 5 MG TABLET PO ONE (06:00)
[2021-01-21] MEDS: methaDONE HCL 40 MG DISPERSABLE TABLET PO SCH (07:13)
[2021-01-21] MEDS: PRENATAL VITAMINS W/ FOLIC ACID TABLET (FP) PO SCH (09:17)
[2021-01-21] MEDS: risperiDONE 1 MG TABLET PO SCH (09:17)
[2021-01-21] MEDS: hydrOXYzine PAMOATE 25 MG CAPSULE (FP) PO PRN (10:06)
[2021-01-21] MEDS: METHOCARBAMOL 500 MG TABLET PO PRN (10:07)
[2021-01-21 13:11] VITALS: BP 107/70; PULSE 81; TEMP 97.4
== END 2021-01-21 15:48 | disposition other institution (70) | DRG 773 ==
LOC: YASAS 10:18 → Y3N 17:08
PROVIDERS: ADMIT Allergy & Immunology; ATTEND Allergy & Immunology
PROC: HZ2ZZZZ Detoxification Services for Substance Abuse Treatment (ICD-10-PCS; principal; 2021-01-17)
DX: F10.230 Alcohol dependence with withdrawal, uncomplicated (principal); F13.20 Sedative, hypnotic or anxiolytic dependence, uncomplicated; F11.20 Opioid dependence, uncomplicated; F17.210 Nicotine dependence, cigarettes, uncomplicated; F25.9 Schizoaffective disorder, unspecified; F31.9 Bipolar disorder, unspecified; B18.2 Chronic viral hepatitis C; J45.909 Unspecified asthma, uncomplicated; M54.5 Low back pain; G89.29 Other chronic pain; Z56.0 Unemployment, unspecified; Z91.5 Personal history of self-harm
CPT/HCPCS: 36415; 80053; 85027; 86780; 93005; 93010; C9803; J2794; Q0162; U0003; U0005

== ENCOUNTER 2021-01-21 15:23 | Inpatient (IN) | payer OTHER ==
[2021-01-21] MEDS ORDERED: MAGNESIUM HYDROX 2400MG/30ML ORAL SUSPENSION 30 ML CUP PO PRN (16:32)
[2021-01-21] MEDS ORDERED: MENTHOL/PHENOL 1 EACH UD MM PRN (16:32)
[2021-01-21] MEDS ORDERED: ACETAMINOPHEN 325 MG TABLET (FP) PO PRN (16:32)
[2021-01-21] MEDS ORDERED: P-EPHED 60MG/TRIPROLIDI 2.5MG TABLET PO PRN (16:32)
[2021-01-21] MEDS ORDERED: IBUPROFEN 400 MG TABLET (FP) PO PRN (16:32)
[2021-01-21] MEDS ORDERED: LOPERAMIDE HCL 2 MG CAPSULE PO PRN (16:32)
[2021-01-21] MEDS ORDERED: guaiFENesin 200 MG/10 ML 10 ML UNIT-DOSE CUPS PO PRN (16:32)
[2021-01-21] MEDS ORDERED: MAGNESIUM CITRATE 300 ML BOTTLE PO PRN (16:32)
[2021-01-21] MEDS ORDERED: MAG HYDROX/AL HYDROX/SIMETH 30 ML UNIT-DOSE CUP PO PRN (16:32)
[2021-01-21] MEDS ORDERED: ALBUTEROL SO4 HFA INHALER IH PRN (16:35)
[2021-01-21 20:10] VITALS: BMI 25.8
[2021-01-21] MEDS: hydrOXYzine PAMOATE 25 MG CAPSULE (FP) PO PRN (21:31)
[2021-01-21] MEDS: risperiDONE 1 MG TABLET PO SCH (21:31)
[2021-01-21] MEDS: THIAMINE HCL 100 MG TABLET (FP) PO SCH (21:31)
[2021-01-21] MEDS: MELATONIN 5 MG TABLETS PO SCH (21:31)
[2021-01-21] MEDS: NICOTINE 10 MG CARTRIDGE (INHALER) IH PRN (21:32)
[2021-01-21] MEDS: SUVOREXANT 10 MG TABLET PO PRN (21:34)
[2021-01-22] MEDS ORDERED: methaDONE HCL 10 MG TABLET PO SCH (06:00)
[2021-01-22] MEDS: methaDONE HCL 40 MG DISPERSABLE TABLET PO SCH (06:17)
[2021-01-22] MEDS: PRENATAL VITAMINS W/ FOLIC ACID TABLET (FP) PO SCH (09:43)
[2021-01-22] MEDS: risperiDONE 1 MG TABLET PO SCH ×2 (09:43→21:35)
[2021-01-22] MEDS: hydrOXYzine PAMOATE 25 MG CAPSULE (FP) PO PRN ×2 (09:45→17:47)
[2021-01-22] MEDS: GABAPENTIN 400 MG CAPSULE PO PRN ×2 (10:31→17:46)
[2021-01-22] MEDS: THIAMINE HCL 100 MG TABLET (FP) PO SCH (21:35)
[2021-01-22] MEDS: MELATONIN 5 MG TABLETS PO SCH (21:35)
[2021-01-22] MEDS: SUVOREXANT 10 MG TABLET PO PRN (21:38)
[2021-01-23] MEDS: methaDONE HCL 40 MG DISPERSABLE TABLET PO SCH (06:34)
[2021-01-23] MEDS: risperiDONE 1 MG TABLET PO SCH ×2 (09:42→21:24)
[2021-01-23] MEDS: PRENATAL VITAMINS W/ FOLIC ACID TABLET (FP) PO SCH (09:42)
[2021-01-23] MEDS: GABAPENTIN 400 MG CAPSULE PO PRN ×2 (09:43→19:54)
[2021-01-23] MEDS: hydrOXYzine PAMOATE 25 MG CAPSULE (FP) PO PRN ×2 (14:48→19:54)
[2021-01-23] MEDS: THIAMINE HCL 100 MG TABLET (FP) PO SCH (21:24)
[2021-01-23] MEDS: SUVOREXANT 10 MG TABLET PO PRN (21:26)
[2021-01-24] MEDS: methaDONE HCL 40 MG DISPERSABLE TABLET PO SCH (06:18)
[2021-01-24] MEDS: GABAPENTIN 400 MG CAPSULE PO PRN ×2 (09:00→23:23)
[2021-01-24] MEDS: risperiDONE 1 MG TABLET PO SCH ×2 (09:00→23:23)
[2021-01-24] MEDS: PRENATAL VITAMINS W/ FOLIC ACID TABLET (FP) PO SCH (09:01)
[2021-01-24] MEDS: hydrOXYzine PAMOATE 25 MG CAPSULE (FP) PO PRN ×3 (09:02→23:23)
[2021-01-24] MEDS ORDERED: PT OWN MED DRAWER 7, Y5N ONE (18:12)
[2021-01-24] MEDS: SUVOREXANT 10 MG TABLET PO PRN (23:22)
[2021-01-24] MEDS: THIAMINE HCL 100 MG TABLET (FP) PO SCH (23:23)
[2021-01-25] MEDS: methaDONE HCL 40 MG DISPERSABLE TABLET PO SCH (06:08)
[2021-01-25] MEDS: NICOTINE 10 MG CARTRIDGE (INHALER) IH PRN (06:46)
[2021-01-25] MEDS: risperiDONE 1 MG TABLET PO SCH ×2 (10:56→21:45)
[2021-01-25] MEDS: PRENATAL VITAMINS W/ FOLIC ACID TABLET (FP) PO SCH (10:56)
[2021-01-25] MEDS: hydrOXYzine PAMOATE 25 MG CAPSULE (FP) PO PRN ×2 (10:56→19:26)
[2021-01-25] MEDS: GABAPENTIN 400 MG CAPSULE PO PRN (10:57)
[2021-01-25] MEDS: THIAMINE HCL 100 MG TABLET (FP) PO SCH (21:45)
[2021-01-25] MEDS: SUVOREXANT 10 MG TABLET PO PRN (21:46)
[2021-01-26] MEDS: methaDONE HCL 40 MG DISPERSABLE TABLET PO SCH (05:56)
[2021-01-26] MEDS: hydrOXYzine PAMOATE 25 MG CAPSULE (FP) PO PRN ×4 (05:59→21:24)
[2021-01-26] MEDS: PRENATAL VITAMINS W/ FOLIC ACID TABLET (FP) PO SCH (10:02)
[2021-01-26] MEDS: risperiDONE 1 MG TABLET PO SCH ×2 (10:02→21:26)
[2021-01-26] MEDS: GABAPENTIN 400 MG CAPSULE PO PRN ×2 (10:04→21:25)
[2021-01-26] MEDS: THIAMINE HCL 100 MG TABLET (FP) PO SCH (21:24)
[2021-01-26] MEDS: SUVOREXANT 10 MG TABLET PO PRN (21:25)
[2021-01-27] MEDS: methaDONE HCL 40 MG DISPERSABLE TABLET PO SCH (06:14)
[2021-01-27] MEDS: GABAPENTIN 400 MG CAPSULE PO PRN ×3 (06:17→22:16)
[2021-01-27] MEDS: hydrOXYzine PAMOATE 25 MG CAPSULE (FP) PO PRN ×3 (06:17→17:27)
[2021-01-27] MEDS: risperiDONE 1 MG TABLET PO SCH ×2 (09:44→22:14)
[2021-01-27] MEDS: PRENATAL VITAMINS W/ FOLIC ACID TABLET (FP) PO SCH (09:44)
[2021-01-27] MEDS: NICOTINE 10 MG CARTRIDGE (INHALER) IH PRN (12:13)
[2021-01-27] MEDS ORDERED: SUVOREXANT 10 MG TABLET PO PRN (22:00)
[2021-01-27] MEDS: THIAMINE HCL 100 MG TABLET (FP) PO SCH (22:14)
[2021-01-28] MEDS: methaDONE HCL 40 MG DISPERSABLE TABLET PO SCH (06:02)
[2021-01-28] MEDS: NICOTINE 10 MG CARTRIDGE (INHALER) IH PRN (06:46)
[2021-01-28] MEDS: GABAPENTIN 400 MG CAPSULE PO PRN (06:47)
[2021-01-28] MEDS: hydrOXYzine PAMOATE 25 MG CAPSULE (FP) PO PRN (06:47)
[2021-01-28 07:12] VITALS: BP 111/71; PULSE 84; TEMP 97.9
[2021-01-28] MEDS: PRENATAL VITAMINS W/ FOLIC ACID TABLET (FP) PO SCH (09:02)
[2021-01-28] MEDS: risperiDONE 1 MG TABLET PO SCH (09:02)
== END 2021-01-28 10:10 | disposition home or self-care (01) | DRG 772 ==
LOC: YASAS 15:23 → Y3E 15:24 → Y5N 01-24 15:09
PROVIDERS: ADMIT Allergy & Immunology; ATTEND Allergy & Immunology
PROC: HZ42ZZZ Group Counseling for Substance Abuse Treatment, Cognitive-Behavioral (ICD-10-PCS; principal; 2021-01-21)
DX: F10.20 Alcohol dependence, uncomplicated (principal); F13.20 Sedative, hypnotic or anxiolytic dependence, uncomplicated; F11.20 Opioid dependence, uncomplicated; F12.20 Cannabis dependence, uncomplicated; F17.210 Nicotine dependence, cigarettes, uncomplicated; F31.9 Bipolar disorder, unspecified; F19.282 Other psychoactive substance dependence with psychoactive substance-induced sleep disorder; F19.24 Other psychoactive substance dependence with psychoactive substance-induced mood disorder; J45.909 Unspecified asthma, uncomplicated; M54.5 Low back pain; G89.29 Other chronic pain; B18.2 Chronic viral hepatitis C; Z56.0 Unemployment, unspecified; Z91.5 Personal history of self-harm
CPT/HCPCS: J2794

== ENCOUNTER 2021-04-23 10:47 | Inpatient (IN) | payer OTHER ==
[2021-04-23] MEDS ORDERED: IBUPROFEN 400 MG TABLET (FP) PO PRN (11:40)
[2021-04-23] MEDS ORDERED: MAGNESIUM HYDROX 2400MG/30ML ORAL SUSPENSION 30 ML CUP PO PRN (11:40)
[2021-04-23] MEDS ORDERED: ACETAMINOPHEN 325 MG TABLET (FP) PO PRN ×2 (11:40)
[2021-04-23] MEDS ORDERED: MAGNESIUM CITRATE 300 ML BOTTLE PO PRN (11:40)
[2021-04-23] MEDS ORDERED: MAG HYDROX/AL HYDROX/SIMETH 30 ML UNIT-DOSE CUP PO PRN (11:40)
[2021-04-23] MEDS ORDERED: NICOTINE 10 MG CARTRIDGE (INHALER) IH PRN (11:40)
[2021-04-23] MEDS ORDERED: MENTHOL/PHENOL 1 EACH UD MM PRN (11:40)
[2021-04-23] MEDS ORDERED: BISMUTH SUBSALICYLATE 262 MG/15 ML BTL PO PRN (11:40)
[2021-04-23] MEDS ORDERED: ONDANSETRON *ODT* 4 MG TABLET SL PRN (11:40)
[2021-04-23] MEDS ORDERED: hydrOXYzine PAMOATE 25 MG CAPSULE (FP) PO ONE (12:21)
[2021-04-23 12:33] VITALS: BMI 30.4
[2021-04-23] MEDS ORDERED: ALBUTEROL SO4 HFA INHALER IH PRN (12:49)
[2021-04-23] MEDS: hydrOXYzine PAMOATE 25 MG CAPSULE (FP) PO SCH ×3 (13:48→22:59)
[2021-04-23] MEDS: METHOCARBAMOL 500 MG TABLET PO PRN (13:48)
[2021-04-23] MEDS ORDERED: LORazepam 1 MG TABLET PO PRN ×2 (15:22→15:37)
[2021-04-23] MEDS: LORazepam 2 MG TABLET PO SCH ×4 (16:30→22:59)
[2021-04-23 18:14] LABS: HEMATOCRIT 42.3 % (35.4-49); HEMOGLOBIN 14.1 GM/dL (11.7-16.9); MCH 30.3 pg (25.7-33.7); MCHC 33.4 g/dl (32.0-35.9); MEAN CELL VOLUME 90.8 fl (80-96); MEAN PLT VOLUME 8.4 fl (7.5-11.1); PLATELET COUNT 187 10^3/uL (134-434); RBC 4.65 M/mm3 (4.00-5.60); RDW 13.9 % (11.9-15.9); WHITE BLOOD COUNT 7.7 K/mm3 (4.0-10.0)
[2021-04-23 18:53] LABS: ALBUMIN 3.7 g/dl (3.4-5.0); BILIRUBIN,TOTAL 0.6 mg/dL (0.2-1); CALCIUM 8.7 mg/dL (8.5-10.1); TOT PROT 7.3 g/dl (6.4-8.2)
[2021-04-23] MEDS: MELATONIN 5 MG TABLETS PO SCH (22:58)
[2021-04-23] MEDS: THIAMINE HCL 100 MG TABLET (FP) PO SCH (22:59)
[2021-04-24] MEDS ORDERED: LORazepam 1 MG TABLET PO SCH (05:00)
[2021-04-24] MEDS: LORazepam 2 MG TABLET PO SCH ×4 (06:38→22:07)
[2021-04-24] MEDS: hydrOXYzine PAMOATE 25 MG CAPSULE (FP) PO SCH ×5 (06:38→22:07)
[2021-04-24] MEDS: methaDONE HCL 40 MG DISPERSABLE TABLET PO SCH (09:27)
[2021-04-24] MEDS: PRENATAL VITAMINS W/ FOLIC ACID TABLET (FP) PO SCH (10:53)
[2021-04-24] MEDS: GABAPENTIN 300 MG CAPSULE PO SCH ×2 (10:53→22:07)
[2021-04-24] MEDS: THIAMINE HCL 100 MG TABLET (FP) PO SCH (22:07)
[2021-04-24] MEDS: risperiDONE 1 MG TABLET PO SCH (22:07)
[2021-04-24] MEDS: MELATONIN 5 MG TABLETS PO SCH (22:07)
[2021-04-25] MEDS ORDERED: LORazepam 0.5 MG TABLET PO PRN
[2021-04-25] MEDS ORDERED: LORazepam 0.5 MG TABLET PO SCH (05:00)
[2021-04-25] MEDS ORDERED: LORazepam 1 MG TABLET PO SCH (05:00)
[2021-04-25] MEDS: hydrOXYzine PAMOATE 25 MG CAPSULE (FP) PO SCH ×5 (05:05→22:35)
[2021-04-25] MEDS: methaDONE HCL 40 MG DISPERSABLE TABLET PO SCH (05:05)
[2021-04-25] MEDS: PRENATAL VITAMINS W/ FOLIC ACID TABLET (FP) PO SCH (09:54)
[2021-04-25] MEDS: GABAPENTIN 300 MG CAPSULE PO SCH ×2 (09:54→22:35)
[2021-04-25] MEDS: risperiDONE 1 MG TABLET PO SCH ×2 (09:54→22:35)
[2021-04-25] MEDS: diazePAM 5 MG TABLET PO SCH ×3 (10:16→22:34)
[2021-04-25] MEDS: diazePAM 5 MG TABLET PO PRN (14:59)
[2021-04-25] MEDS: THIAMINE HCL 100 MG TABLET (FP) PO SCH (22:35)
[2021-04-25] MEDS: MELATONIN 5 MG TABLETS PO SCH (22:35)
[2021-04-26] MEDS ORDERED: LORazepam 0.5 MG TABLET PO PRN
[2021-04-26] MEDS ORDERED: LORazepam 0.5 MG TABLET PO SCH (05:00)
[2021-04-26] MEDS ORDERED: LORazepam 0.5 MG TABLET PO ONE (05:00)
[2021-04-26] MEDS: diazePAM 5 MG TABLET PO SCH ×4 (06:02→22:09)
[2021-04-26] MEDS: methaDONE HCL 40 MG DISPERSABLE TABLET PO SCH (06:02)
[2021-04-26] MEDS: hydrOXYzine PAMOATE 25 MG CAPSULE (FP) PO SCH ×5 (06:02→22:08)
[2021-04-26] MEDS: risperiDONE 1 MG TABLET PO SCH ×2 (10:08→22:08)
[2021-04-26] MEDS: GABAPENTIN 300 MG CAPSULE PO SCH ×2 (10:08→22:08)
[2021-04-26] MEDS: PRENATAL VITAMINS W/ FOLIC ACID TABLET (FP) PO SCH (10:08)
[2021-04-26] MEDS: diazePAM 5 MG TABLET PO PRN (13:38)
[2021-04-26] MEDS: THIAMINE HCL 100 MG TABLET (FP) PO SCH (22:08)
[2021-04-26] MEDS: MELATONIN 5 MG TABLETS PO SCH (22:08)
[2021-04-27] MEDS ORDERED: LORazepam 0.5 MG TABLET PO ONE (05:00)
[2021-04-27] MEDS: methaDONE HCL 40 MG DISPERSABLE TABLET PO SCH (05:23)
[2021-04-27] MEDS: hydrOXYzine PAMOATE 25 MG CAPSULE (FP) PO SCH ×5 (05:24→22:07)
[2021-04-27] MEDS: diazePAM 5 MG TABLET PO SCH ×3 (05:24→22:08)
[2021-04-27] MEDS: GABAPENTIN 300 MG CAPSULE PO SCH ×2 (09:31→22:07)
[2021-04-27] MEDS: METHOCARBAMOL 500 MG TABLET PO PRN (09:31)
[2021-04-27] MEDS: PRENATAL VITAMINS W/ FOLIC ACID TABLET (FP) PO SCH (09:31)
[2021-04-27] MEDS: risperiDONE 1 MG TABLET PO SCH ×2 (09:32→22:08)
[2021-04-27] MEDS: diazePAM 5 MG TABLET PO PRN ×2 (09:32→17:31)
[2021-04-27] MEDS: MELATONIN 5 MG TABLETS PO SCH (22:07)
[2021-04-27] MEDS: THIAMINE HCL 100 MG TABLET (FP) PO SCH (22:07)
[2021-04-28] MEDS: hydrOXYzine PAMOATE 25 MG CAPSULE (FP) PO SCH ×5 (05:10→22:04)
[2021-04-28] MEDS: methaDONE HCL 40 MG DISPERSABLE TABLET PO SCH (05:10)
[2021-04-28] MEDS: diazePAM 5 MG TABLET PO SCH ×2 (05:10→17:28)
[2021-04-28] MEDS: PRENATAL VITAMINS W/ FOLIC ACID TABLET (FP) PO SCH (10:04)
[2021-04-28] MEDS: GABAPENTIN 300 MG CAPSULE PO SCH ×2 (10:04→22:04)
[2021-04-28] MEDS: METHOCARBAMOL 500 MG TABLET PO PRN ×2 (10:05→17:27)
[2021-04-28] MEDS: risperiDONE 1 MG TABLET PO SCH ×2 (10:05→22:04)
[2021-04-28 20:56] VITALS: TEMP 97.3
[2021-04-28] MEDS: THIAMINE HCL 100 MG TABLET (FP) PO SCH (22:05)
[2021-04-28] MEDS: MELATONIN 5 MG TABLETS PO SCH (22:05)
[2021-04-29] MEDS: methaDONE HCL 40 MG DISPERSABLE TABLET PO SCH (05:07)
[2021-04-29] MEDS: hydrOXYzine PAMOATE 25 MG CAPSULE (FP) PO SCH (05:09)
[2021-04-29] MEDS: METHOCARBAMOL 500 MG TABLET PO PRN (05:11)
[2021-04-29] MEDS ORDERED: diazePAM 5 MG TABLET PO ONE (06:00)
[2021-04-29 09:04] VITALS: BP 108/60; PULSE 78
== END 2021-04-29 09:20 | disposition home or self-care (01) | DRG 773 ==
LOC: YASAS 10:47 → Y3N 12:02
PROVIDERS: ADMIT Allergy & Immunology; ATTEND Allergy & Immunology
PROC: HZ2ZZZZ Detoxification Services for Substance Abuse Treatment (ICD-10-PCS; principal; 2021-04-23)
DX: F10.230 Alcohol dependence with withdrawal, uncomplicated (principal); F11.20 Opioid dependence, uncomplicated; F14.20 Cocaine dependence, uncomplicated; F12.20 Cannabis dependence, uncomplicated; F13.10 Sedative, hypnotic or anxiolytic abuse, uncomplicated; F19.24 Other psychoactive substance dependence with psychoactive substance-induced mood disorder; F20.9 Schizophrenia, unspecified; J45.909 Unspecified asthma, uncomplicated; G62.9 Polyneuropathy, unspecified; R63.4 Abnormal weight loss; Z87.891 Personal history of nicotine dependence; Z86.19 Personal history of other infectious and parasitic diseases; Z91.14 Patient's other noncompliance with medication regimen; Z56.0 Unemployment, unspecified; Z59.00 Homelessness unspecified
CPT/HCPCS: 36415; 71046-TC-FY; 80053; 85027; 86780; 93005; 93010; C9803; J2794; U0003; U0005

== ENCOUNTER 2021-05-22 09:48 | Inpatient (IN) | payer OTHER ==
[2021-05-22 11:36] VITALS: BMI 28.1
[2021-05-22] MEDS ORDERED: MAGNESIUM HYDROX 2400MG/30ML ORAL SUSPENSION 30 ML CUP PO PRN (12:04)
[2021-05-22] MEDS ORDERED: MENTHOL/PHENOL 1 EACH UD MM PRN (12:04)
[2021-05-22] MEDS ORDERED: BISMUTH SUBSALICYLATE 262 MG/15 ML BTL PO PRN (12:04)
[2021-05-22] MEDS ORDERED: MAG HYDROX/AL HYDROX/SIMETH 30 ML UNIT-DOSE CUP PO PRN (12:04)
[2021-05-22] MEDS ORDERED: NICOTINE 10 MG CARTRIDGE (INHALER) IH PRN (12:04)
[2021-05-22] MEDS ORDERED: IBUPROFEN 400 MG TABLET (FP) PO PRN (12:04)
[2021-05-22] MEDS ORDERED: MAGNESIUM CITRATE 300 ML BOTTLE PO PRN (12:04)
[2021-05-22] MEDS ORDERED: ACETAMINOPHEN 325 MG TABLET (FP) PO PRN ×2 (12:04)
[2021-05-22] MEDS ORDERED: ONDANSETRON *ODT* 4 MG TABLET SL PRN (12:04)
[2021-05-22] MEDS ORDERED: ALBUTEROL SO4 HFA INHALER IH PRN (12:07)
[2021-05-22] MEDS: PRENATAL VITAMINS W/ FOLIC ACID TABLET (FP) PO SCH (12:39)
[2021-05-22] MEDS: NICOTINE 7 MG/24 HOURS TOPICAL PATCH TD SCH (12:39)
[2021-05-22] MEDS: diazePAM 5 MG TABLET PO SCH ×3 (12:39→22:45)
[2021-05-22] MEDS: hydrOXYzine PAMOATE 25 MG CAPSULE (FP) PO SCH ×3 (13:29→22:45)
[2021-05-22] MEDS: risperiDONE 1 MG TABLET PO SCH ×2 (14:09→22:45)
[2021-05-22] MEDS: METHOCARBAMOL 500 MG TABLET PO PRN (15:28)
[2021-05-22] MEDS ORDERED: SUVOREXANT 10 MG TABLET PO PRN (22:00)
[2021-05-22] MEDS ORDERED: MELATONIN 5 MG TABLETS PO SCH (22:00)
[2021-05-22] MEDS: THIAMINE HCL 100 MG TABLET (FP) PO SCH (22:45)
[2021-05-23] MEDS: diazePAM 5 MG TABLET PO SCH ×4 (05:51→22:42)
[2021-05-23] MEDS: hydrOXYzine PAMOATE 25 MG CAPSULE (FP) PO SCH ×2 (05:51→10:30)
[2021-05-23 09:57] LABS: HEMATOCRIT 43.7 % (35.4-49); HEMOGLOBIN 14.3 GM/dL (11.7-16.9); MCH 30.4 pg (25.7-33.7); MCHC 32.9 g/dl (32.0-35.9); MEAN CELL VOLUME 92.5 fl (80-96); MEAN PLT VOLUME 9.1 fl (7.5-11.1); PLATELET COUNT 201 10^3/uL (134-434); RBC 4.72 M/mm3 (4.00-5.60); RDW 14.5 % (11.9-15.9)
[2021-05-23] MEDS ORDERED: methaDONE HCL 40 MG DISPERSABLE TABLET PO SCH (10:00)
[2021-05-23 10:16] LABS: BLOOD UREA NITROGEN 10.1 mg/dL (7-18); CALCIUM 9.1 mg/dL (8.5-10.1)
[2021-05-23 10:17] LABS: ALBUMIN 3.8 g/dl (3.4-5.0)
[2021-05-23 10:21] LABS: BILIRUBIN,TOTAL 0.6 mg/dL (0.2-1); CREATININE 1.1 mg/dL (0.55-1.3)
[2021-05-23 10:22] LABS: TOT PROT 7.7 g/dl (6.4-8.2)
[2021-05-23] MEDS: NICOTINE 7 MG/24 HOURS TOPICAL PATCH TD SCH (10:28)
[2021-05-23] MEDS: PRENATAL VITAMINS W/ FOLIC ACID TABLET (FP) PO SCH (10:30)
[2021-05-23] MEDS: risperiDONE 1 MG TABLET PO SCH ×2 (10:30→22:41)
[2021-05-23] MEDS: diazePAM 5 MG TABLET PO PRN (14:47)
[2021-05-23] MEDS: THIAMINE HCL 100 MG TABLET (FP) PO SCH (22:41)
[2021-05-23] MEDS: hydrOXYzine PAMOATE 50 MG CAPSULE (FP) PO PRN (22:44)
[2021-05-24] MEDS: diazePAM 5 MG TABLET PO SCH ×3 (05:38→22:48)
[2021-05-24] MEDS: methaDONE HCL 40 MG DISPERSABLE TABLET PO SCH (05:38)
[2021-05-24] MEDS: risperiDONE 1 MG TABLET PO SCH ×2 (10:15→22:45)
[2021-05-24] MEDS: NICOTINE 7 MG/24 HOURS TOPICAL PATCH TD SCH (10:15)
[2021-05-24] MEDS: PRENATAL VITAMINS W/ FOLIC ACID TABLET (FP) PO SCH (10:15)
[2021-05-24] MEDS: METHOCARBAMOL 500 MG TABLET PO PRN ×2 (10:15→22:46)
[2021-05-24] MEDS: diazePAM 5 MG TABLET PO PRN ×2 (10:15→17:57)
[2021-05-24] MEDS: THIAMINE HCL 100 MG TABLET (FP) PO SCH (22:45)
[2021-05-25] MEDS: methaDONE HCL 40 MG DISPERSABLE TABLET PO SCH (05:23)
[2021-05-25] MEDS: diazePAM 5 MG TABLET PO SCH ×2 (05:23→17:47)
[2021-05-25] MEDS: hydrOXYzine PAMOATE 50 MG CAPSULE (FP) PO PRN ×3 (10:07→22:55)
[2021-05-25] MEDS: PRENATAL VITAMINS W/ FOLIC ACID TABLET (FP) PO SCH (10:07)
[2021-05-25] MEDS: risperiDONE 1 MG TABLET PO SCH ×2 (10:07→22:55)
[2021-05-25] MEDS: NICOTINE 7 MG/24 HOURS TOPICAL PATCH TD SCH (10:49)
[2021-05-25] MEDS: METHOCARBAMOL 500 MG TABLET PO PRN (13:47)
[2021-05-25] MEDS: THIAMINE HCL 100 MG TABLET (FP) PO SCH (22:55)
[2021-05-26] MEDS: methaDONE HCL 40 MG DISPERSABLE TABLET PO SCH (05:38)
[2021-05-26] MEDS ORDERED: diazePAM 5 MG TABLET PO ONE (06:00)
[2021-05-26] MEDS: risperiDONE 1 MG TABLET PO SCH ×2 (10:16→23:14)
[2021-05-26] MEDS: METHOCARBAMOL 500 MG TABLET PO PRN (10:17)
[2021-05-26] MEDS: NICOTINE 7 MG/24 HOURS TOPICAL PATCH TD SCH (10:18)
[2021-05-26] MEDS: PRENATAL VITAMINS W/ FOLIC ACID TABLET (FP) PO SCH (10:18)
[2021-05-26] MEDS: THIAMINE HCL 100 MG TABLET (FP) PO SCH (23:14)
[2021-05-27] MEDS: methaDONE HCL 40 MG DISPERSABLE TABLET PO SCH (05:36)
[2021-05-27] MEDS: METHOCARBAMOL 500 MG TABLET PO PRN (05:38)
[2021-05-27 08:52] VITALS: BP 121/73; PULSE 89; TEMP 98.1
[2021-05-27] MEDS: PRENATAL VITAMINS W/ FOLIC ACID TABLET (FP) PO SCH (10:23)
[2021-05-27] MEDS: NICOTINE 7 MG/24 HOURS TOPICAL PATCH TD SCH (10:23)
[2021-05-27] MEDS: risperiDONE 1 MG TABLET PO SCH (10:23)
== END 2021-05-27 09:42 | disposition home or self-care (01) | DRG 773 ==
LOC: YASAS 09:48 → Y6N 11:25
PROVIDERS: ADMIT Allergy & Immunology; ATTEND Allergy & Immunology
PROC: HZ2ZZZZ Detoxification Services for Substance Abuse Treatment (ICD-10-PCS; principal; 2021-05-22)
DX: F10.230 Alcohol dependence with withdrawal, uncomplicated (principal); F11.20 Opioid dependence, uncomplicated; F14.20 Cocaine dependence, uncomplicated; F12.20 Cannabis dependence, uncomplicated; F13.10 Sedative, hypnotic or anxiolytic abuse, uncomplicated; F17.210 Nicotine dependence, cigarettes, uncomplicated; F25.9 Schizoaffective disorder, unspecified; F31.9 Bipolar disorder, unspecified; F19.24 Other psychoactive substance dependence with psychoactive substance-induced mood disorder; F19.282 Other psychoactive substance dependence with psychoactive substance-induced sleep disorder; F19.280 Other psychoactive substance dependence with psychoactive substance-induced anxiety disorder; I10 Essential (primary) hypertension; J45.20 Mild intermittent asthma, uncomplicated; B18.2 Chronic viral hepatitis C; M54.59 Other low back pain; G89.29 Other chronic pain; R00.0 Tachycardia, unspecified; G62.9 Polyneuropathy, unspecified; Z62.810 Personal history of physical and sexual abuse in childhood; Z86.11 Personal history of tuberculosis; Z91.51 Personal history of suicidal behavior; Z56.0 Unemployment, unspecified; Z59.01 Sheltered homelessness
CPT/HCPCS: 36415; 80053; 82962; 85027; 86780; C9803; J2794; U0003; U0005

== ENCOUNTER 2021-08-02 11:24 | Inpatient (IN) | payer OTHER ==
[2021-08-02] MEDS ORDERED: MENTHOL/PHENOL 1 EACH UD MM PRN (12:33)
[2021-08-02] MEDS ORDERED: IBUPROFEN 400 MG TABLET (FP) PO PRN (12:33)
[2021-08-02] MEDS ORDERED: ACETAMINOPHEN 325 MG TABLET (FP) PO PRN ×2 (12:33)
[2021-08-02] MEDS ORDERED: LOPERAMIDE HCL 2 MG CAPSULE PO PRN (12:33)
[2021-08-02] MEDS ORDERED: NICOTINE 10 MG CARTRIDGE (INHALER) IH PRN (12:33)
[2021-08-02] MEDS ORDERED: MAGNESIUM CITRATE 300 ML BOTTLE PO PRN (12:33)
[2021-08-02] MEDS ORDERED: ONDANSETRON *ODT* 4 MG TABLET SL PRN (12:33)
[2021-08-02] MEDS ORDERED: BISMUTH SUBSALICYLATE 524 MG/30 ML PO PRN (12:33)
[2021-08-02] MEDS ORDERED: MAG HYDROX/AL HYDROX/SIMETH 30 ML UNIT-DOSE CUP PO PRN (12:33)
[2021-08-02] MEDS ORDERED: MAGNESIUM HYDROX 2400MG/30ML ORAL SUSPENSION 30 ML CUP PO PRN (12:33)
[2021-08-02] MEDS ORDERED: ALBUTEROL SO4 HFA INHALER IH PRN (12:38)
[2021-08-02 13:37] VITALS: BMI 25.9
[2021-08-02] MEDS: hydrOXYzine PAMOATE 25 MG CAPSULE (FP) PO SCH ×3 (14:09→22:24)
[2021-08-02] MEDS: diazePAM 5 MG TABLET PO PRN (17:09)
[2021-08-02] MEDS ORDERED: risperiDONE 1 MG TABLET PO SCH (22:00)
[2021-08-02] MEDS: diazePAM 5 MG TABLET PO SCH (22:23)
[2021-08-02] MEDS: MELATONIN 5 MG TABLETS PO SCH (22:23)
[2021-08-02] MEDS: THIAMINE HCL 100 MG TABLET (FP) PO SCH (22:24)
[2021-08-03] MEDS: methaDONE HCL 40 MG DISPERSABLE TABLET PO SCH (05:23)
[2021-08-03] MEDS: diazePAM 5 MG TABLET PO SCH ×4 (05:24→22:22)
[2021-08-03] MEDS: hydrOXYzine PAMOATE 25 MG CAPSULE (FP) PO SCH ×5 (05:24→22:22)
[2021-08-03] MEDS: PRENATAL VITAMINS W/ FOLIC ACID TABLET (FP) PO SCH (10:22)
[2021-08-03 12:40] LABS: HEMATOCRIT 44.7 % (35.4-49); MCH 30.5 pg (25.7-33.7); MCHC 33.4 g/dl (32.0-35.9); MEAN CELL VOLUME 91.3 fl (80-96); MEAN PLT VOLUME 8.7 fl (7.5-11.1); PLATELET COUNT 230 10^3/uL (134-434); RDW 14.2 % (11.9-15.9); WHITE BLOOD COUNT 7.3 K/mm3 (4.0-10.0)
[2021-08-03 12:41] LABS: ALBUMIN 3.5 g/dl (3.4-5.0); BLOOD UREA NITROGEN 7.2 mg/dL (7-18)
[2021-08-03 12:44] LABS: CREATININE 1.1 mg/dL (0.55-1.3)
[2021-08-03 12:46] LABS: BILIRUBIN,TOTAL 1.1 mg/dL (0.2-1); TOT PROT 6.9 g/dl (6.4-8.2)
[2021-08-03] MEDS: THIAMINE HCL 100 MG TABLET (FP) PO SCH (22:22)
[2021-08-03] MEDS: MELATONIN 5 MG TABLETS PO SCH (22:22)
[2021-08-03] MEDS: METHOCARBAMOL 500 MG TABLET PO PRN (22:23)
[2021-08-04] MEDS: diazePAM 5 MG TABLET PO SCH ×3 (05:11→22:45)
[2021-08-04] MEDS: hydrOXYzine PAMOATE 25 MG CAPSULE (FP) PO SCH ×5 (05:11→22:44)
[2021-08-04] MEDS: methaDONE HCL 40 MG DISPERSABLE TABLET PO SCH (05:11)
[2021-08-04] MEDS: diazePAM 5 MG TABLET PO PRN (09:09)
[2021-08-04] MEDS: PRENATAL VITAMINS W/ FOLIC ACID TABLET (FP) PO SCH (10:03)
[2021-08-04] MEDS: METHOCARBAMOL 500 MG TABLET PO PRN ×2 (10:04→18:24)
[2021-08-04 19:10] LABS: SARS-CoV-2 NAA Not Detected (Not Detected)
[2021-08-04] MEDS: MELATONIN 5 MG TABLETS PO SCH (22:43)
[2021-08-04] MEDS: THIAMINE HCL 100 MG TABLET (FP) PO SCH (22:44)
[2021-08-05] MEDS: hydrOXYzine PAMOATE 25 MG CAPSULE (FP) PO SCH ×5 (05:15→22:27)
[2021-08-05] MEDS: diazePAM 5 MG TABLET PO SCH ×2 (05:15→17:37)
[2021-08-05] MEDS: methaDONE HCL 40 MG DISPERSABLE TABLET PO SCH (05:16)
[2021-08-05] MEDS: PRENATAL VITAMINS W/ FOLIC ACID TABLET (FP) PO SCH (10:05)
[2021-08-05] MEDS: diazePAM 5 MG TABLET PO PRN (10:08)
[2021-08-05] MEDS: METHOCARBAMOL 500 MG TABLET PO PRN ×2 (14:12→22:27)
[2021-08-05] MEDS ORDERED: diazePAM 5 MG TABLET PO ONE (14:34)
[2021-08-05] MEDS: THIAMINE HCL 100 MG TABLET (FP) PO SCH (22:27)
[2021-08-05] MEDS: MELATONIN 5 MG TABLETS PO SCH (22:27)
[2021-08-06] MEDS: methaDONE HCL 40 MG DISPERSABLE TABLET PO SCH (05:27)
[2021-08-06] MEDS: hydrOXYzine PAMOATE 25 MG CAPSULE (FP) PO SCH (05:28)
[2021-08-06] MEDS ORDERED: diazePAM 5 MG TABLET PO ONE (06:00)
[2021-08-06 08:52] VITALS: BP 105/67; PULSE 73; TEMP 97.7
== END 2021-08-06 09:25 | disposition home or self-care (01) | DRG 774 ==
LOC: YASAS 11:24 → Y3N 13:36
PROVIDERS: ADMIT Allergy & Immunology; ATTEND Allergy & Immunology
PROC: HZ2ZZZZ Detoxification Services for Substance Abuse Treatment (ICD-10-PCS; principal; 2021-08-02)
DX: F10.230 Alcohol dependence with withdrawal, uncomplicated (principal); F13.20 Sedative, hypnotic or anxiolytic dependence, uncomplicated; F14.20 Cocaine dependence, uncomplicated; F12.20 Cannabis dependence, uncomplicated; F17.210 Nicotine dependence, cigarettes, uncomplicated; F19.24 Other psychoactive substance dependence with psychoactive substance-induced mood disorder; J45.20 Mild intermittent asthma, uncomplicated; B18.2 Chronic viral hepatitis C; G47.00 Insomnia, unspecified; Z56.0 Unemployment, unspecified; Z59.01 Sheltered homelessness
CPT/HCPCS: 36415; 80053; 85027; 86780; 87811; C9803; U0003; U0005

== ENCOUNTER 2021-08-27 12:13 | Inpatient (IN) | payer OTHER ==
[2021-08-27] MEDS ORDERED: chlordiazePOXIDE HCL 25 MG CAPSULE PO PRN (12:44)
[2021-08-27] MEDS ORDERED: MAGNESIUM CITRATE 300 ML BOTTLE PO PRN (12:44)
[2021-08-27] MEDS ORDERED: ONDANSETRON *ODT* 4 MG TABLET SL PRN (12:44)
[2021-08-27] MEDS ORDERED: MAG HYDROX/AL HYDROX/SIMETH 30 ML UNIT-DOSE CUP PO PRN (12:44)
[2021-08-27] MEDS ORDERED: MENTHOL/PHENOL 1 EACH UD MM PRN (12:44)
[2021-08-27] MEDS ORDERED: IBUPROFEN 400 MG TABLET (FP) PO PRN (12:44)
[2021-08-27] MEDS ORDERED: LOPERAMIDE HCL 2 MG CAPSULE PO PRN (12:44)
[2021-08-27] MEDS ORDERED: MAGNESIUM HYDROX 2400MG/30ML ORAL SUSPENSION 30 ML CUP PO PRN (12:44)
[2021-08-27] MEDS ORDERED: ACETAMINOPHEN 325 MG TABLET (FP) PO PRN ×2 (12:44)
[2021-08-27] MEDS ORDERED: BISMUTH SUBSALICYLATE 524 MG/30 ML PO PRN (12:44)
[2021-08-27 12:57] VITALS: BMI 27.4
[2021-08-27] MEDS: hydrOXYzine PAMOATE 25 MG CAPSULE (FP) PO SCH ×3 (14:22→22:15)
[2021-08-27] MEDS: PRENATAL VITAMINS W/ FOLIC ACID TABLET (FP) PO SCH (14:23)
[2021-08-27] MEDS: chlordiazePOXIDE HCL 25 MG CAPSULE PO SCH ×2 (17:40→22:15)
[2021-08-27] MEDS ORDERED: ALBUTEROL SO4 HFA INHALER IH PRN (18:05)
[2021-08-27 18:10] LABS: CALCIUM 9.3 mg/dL (8.5-10.1); HEMATOCRIT 43.7 % (35.4-49); HEMOGLOBIN 14.6 GM/dL (11.7-16.9); MCH 30.8 pg (25.7-33.7); MCHC 33.5 g/dl (32.0-35.9); MEAN CELL VOLUME 91.9 fl (80-96); MEAN PLT VOLUME 8.8 fl (7.5-11.1); PLATELET COUNT 190 10^3/uL (134-434); RBC 4.75 M/mm3 (4.00-5.60); RDW 14.3 % (11.9-15.9)
[2021-08-27 18:11] LABS: ALBUMIN 3.9 g/dl (3.4-5.0); BLOOD UREA NITROGEN 10.3 mg/dL (7-18)
[2021-08-27 18:16] LABS: BILIRUBIN,TOTAL 0.5 mg/dL (0.2-1); TOT PROT 7.7 g/dl (6.4-8.2)
[2021-08-27] MEDS: THIAMINE HCL 100 MG TABLET (FP) PO SCH (22:15)
[2021-08-27] MEDS: MELATONIN 5 MG TABLETS PO SCH (22:15)
[2021-08-28] MEDS: chlordiazePOXIDE HCL 25 MG CAPSULE PO SCH (05:18)
[2021-08-28] MEDS: hydrOXYzine PAMOATE 25 MG CAPSULE (FP) PO SCH (05:18)
[2021-08-28] MEDS: methaDONE HCL 40 MG DISPERSABLE TABLET PO SCH (06:31)
[2021-08-28] MEDS: diazePAM 5 MG TABLET PO SCH ×3 (10:30→22:32)
[2021-08-28] MEDS: PRENATAL VITAMINS W/ FOLIC ACID TABLET (FP) PO SCH (10:32)
[2021-08-28] MEDS ORDERED: hydrOXYzine PAMOATE 25 MG CAPSULE (FP) PO ONE (10:44)
[2021-08-28] MEDS: hydrOXYzine PAMOATE 25 MG CAPSULE (FP) PO PRN (18:01)
[2021-08-28] MEDS: THIAMINE HCL 100 MG TABLET (FP) PO SCH (22:32)
[2021-08-28] MEDS: MELATONIN 5 MG TABLETS PO SCH (22:32)
[2021-08-29] MEDS: hydrOXYzine PAMOATE 25 MG CAPSULE (FP) PO PRN ×5 (00:23→23:15)
[2021-08-29] MEDS ORDERED: chlordiazePOXIDE HCL 25 MG CAPSULE PO SCH (05:00)
[2021-08-29] MEDS: diazePAM 5 MG TABLET PO SCH ×4 (05:37→22:14)
[2021-08-29] MEDS: methaDONE HCL 40 MG DISPERSABLE TABLET PO SCH (05:38)
[2021-08-29] MEDS: PRENATAL VITAMINS W/ FOLIC ACID TABLET (FP) PO SCH (10:37)
[2021-08-29] MEDS: diazePAM 5 MG TABLET PO PRN (13:50)
[2021-08-29] MEDS: THIAMINE HCL 100 MG TABLET (FP) PO SCH (22:15)
[2021-08-29] MEDS: MELATONIN 5 MG TABLETS PO SCH (22:15)
[2021-08-29] MEDS: METHOCARBAMOL 500 MG TABLET PO PRN (22:15)
[2021-08-30] MEDS ORDERED: chlordiazePOXIDE HCL 10 MG CAPSULE PO PRN
[2021-08-30 00:07] LABS: SARS-CoV-2 NAA Not Detected (Not Detected)
[2021-08-30] MEDS ORDERED: chlordiazePOXIDE HCL 10 MG CAPSULE PO SCH (05:00)
[2021-08-30] MEDS: diazePAM 5 MG TABLET PO SCH ×3 (05:39→22:23)
[2021-08-30] MEDS: methaDONE HCL 40 MG DISPERSABLE TABLET PO SCH (05:39)
[2021-08-30] MEDS: hydrOXYzine PAMOATE 25 MG CAPSULE (FP) PO PRN ×3 (05:41→22:23)
[2021-08-30] MEDS: diazePAM 5 MG TABLET PO PRN ×2 (10:34→19:44)
[2021-08-30] MEDS: PRENATAL VITAMINS W/ FOLIC ACID TABLET (FP) PO SCH (10:43)
[2021-08-30] MEDS: MELATONIN 5 MG TABLETS PO SCH (22:23)
[2021-08-30] MEDS: THIAMINE HCL 100 MG TABLET (FP) PO SCH (22:23)
[2021-08-30] MEDS: METHOCARBAMOL 500 MG TABLET PO PRN (22:25)
[2021-08-31] MEDS ORDERED: chlordiazePOXIDE HCL 10 MG CAPSULE PO SCH (05:00)
[2021-08-31] MEDS: diazePAM 5 MG TABLET PO SCH ×2 (05:29→17:29)
[2021-08-31] MEDS: methaDONE HCL 40 MG DISPERSABLE TABLET PO SCH (05:30)
[2021-08-31] MEDS: hydrOXYzine PAMOATE 25 MG CAPSULE (FP) PO PRN ×2 (05:31→17:30)
[2021-08-31] MEDS: PRENATAL VITAMINS W/ FOLIC ACID TABLET (FP) PO SCH (10:26)
[2021-08-31] MEDS: METHOCARBAMOL 500 MG TABLET PO PRN ×2 (10:27→17:31)
[2021-08-31] MEDS: THIAMINE HCL 100 MG TABLET (FP) PO SCH (22:06)
[2021-08-31] MEDS: MELATONIN 5 MG TABLETS PO SCH (22:06)
[2021-09-01] MEDS ORDERED: chlordiazePOXIDE HCL 10 MG CAPSULE PO ONE (05:00)
[2021-09-01] MEDS: methaDONE HCL 40 MG DISPERSABLE TABLET PO SCH (05:34)
[2021-09-01] MEDS ORDERED: diazePAM 5 MG TABLET PO ONE (06:00)
[2021-09-01 09:29] VITALS: BP 115/76; PULSE 72; TEMP 97.3
== END 2021-09-01 10:20 | disposition home or self-care (01) | DRG 773 ==
LOC: YASAS 12:13 → Y3N 13:32
PROVIDERS: ADMIT Allergy & Immunology; ATTEND Allergy & Immunology
PROC: HZ2ZZZZ Detoxification Services for Substance Abuse Treatment (ICD-10-PCS; principal; 2021-08-27)
DX: F10.230 Alcohol dependence with withdrawal, uncomplicated (principal); F11.20 Opioid dependence, uncomplicated; F13.20 Sedative, hypnotic or anxiolytic dependence, uncomplicated; F14.20 Cocaine dependence, uncomplicated; F12.20 Cannabis dependence, uncomplicated; F25.9 Schizoaffective disorder, unspecified; J45.20 Mild intermittent asthma, uncomplicated; B18.2 Chronic viral hepatitis C; G47.00 Insomnia, unspecified; Z87.891 Personal history of nicotine dependence; Z56.0 Unemployment, unspecified; Z59.01 Sheltered homelessness; Z91.19 Patient's noncompliance with other medical treatment and regimen
CPT/HCPCS: 36415; 80053; 85027; 86780; 87811; C9803-CS; U0003; U0005

== ENCOUNTER 2021-10-21 11:10 | Inpatient (IN) | payer OTHER ==
[2021-10-21] MEDS ORDERED: MAGNESIUM CITRATE 300 ML BOTTLE PO PRN (12:25)
[2021-10-21] MEDS ORDERED: NICOTINE 10 MG CARTRIDGE (INHALER) IH PRN (12:25)
[2021-10-21] MEDS ORDERED: LOPERAMIDE HCL 2 MG CAPSULE PO PRN (12:25)
[2021-10-21] MEDS ORDERED: ACETAMINOPHEN 325 MG TABLET (FP) PO PRN ×2 (12:25)
[2021-10-21] MEDS ORDERED: DICYCLOMINE HCL 10 MG CAPSULE PO PRN (12:25)
[2021-10-21] MEDS ORDERED: BISMUTH SUBSALICYLATE 524 MG/30 ML PO PRN (12:25)
[2021-10-21] MEDS ORDERED: ONDANSETRON *ODT* 4 MG TABLET SL PRN (12:25)
[2021-10-21] MEDS ORDERED: MAGNESIUM HYDROX 2400MG/30ML ORAL SUSPENSION 30 ML CUP PO PRN (12:25)
[2021-10-21] MEDS ORDERED: BENZOCAINE/MENTHOL (CHLORASEPTIC ) LOZENGE MM PRN (12:25)
[2021-10-21] MEDS ORDERED: IBUPROFEN 400 MG TABLET (FP) PO PRN (12:25)
[2021-10-21] MEDS ORDERED: MAG HYDROX/AL HYDROX/SIMETH 30 ML UNIT-DOSE CUP PO PRN (12:25)
[2021-10-21 12:54] VITALS: BMI 26.5
[2021-10-21] MEDS ORDERED: ALBUTEROL SO4 HFA INHALER IH PRN (13:23)
[2021-10-21] MEDS: hydrOXYzine PAMOATE 25 MG CAPSULE (FP) PO SCH ×3 (13:38→22:26)
[2021-10-21] MEDS: PRENATAL VITAMINS W/ FOLIC ACID TABLET (FP) PO SCH (13:38)
[2021-10-21] MEDS: NICOTINE 14 MG/24 HOURS TOPICAL PATCH TD SCH (13:38)
[2021-10-21 15:58] LABS: HEMATOCRIT 42.9 % (35.4-49); HEMOGLOBIN 14.5 GM/dL (11.7-16.9); MCH 31.2 pg (25.7-33.7); MCHC 33.8 g/dl (32.0-35.9); MEAN CELL VOLUME 92.2 fl (80-96); MEAN PLT VOLUME 8.5 fl (7.5-11.1); PLATELET COUNT 190 10^3/uL (134-434); RBC 4.65 M/mm3 (4.00-5.60); RDW 14.5 % (11.9-15.9); WHITE BLOOD COUNT 10.3 K/mm3 (4.0-10.0)
[2021-10-21 16:02] LABS: ALBUMIN 3.8 g/dl (3.4-5.0); BLOOD UREA NITROGEN 8.4 mg/dL (7-18); CALCIUM 9.1 mg/dL (8.5-10.1)
[2021-10-21 16:05] LABS: CREATININE 1.1 mg/dL (0.55-1.3)
[2021-10-21 16:07] LABS: BILIRUBIN,TOTAL 0.5 mg/dL (0.2-1); TOT PROT 7.2 g/dl (6.4-8.2)
[2021-10-21] MEDS: chlordiazePOXIDE HCL 25 MG CAPSULE PO SCH ×2 (17:57→22:26)
[2021-10-21] MEDS: MELATONIN 5 MG TABLETS PO SCH (22:26)
[2021-10-21] MEDS: THIAMINE HCL 100 MG TABLET (FP) PO SCH (22:26)
[2021-10-21] MEDS: METHOCARBAMOL 500 MG TABLET PO PRN (22:27)
[2021-10-22] MEDS: chlordiazePOXIDE HCL 25 MG CAPSULE PO PRN ×2 (02:40→20:03)
[2021-10-22] MEDS ORDERED: methaDONE HCL 10 MG TABLET ONE (04:26)
[2021-10-22] MEDS ORDERED: methaDONE HCL 40 MG DISPERSABLE TABLET ONE (04:26)
[2021-10-22] MEDS: chlordiazePOXIDE HCL 25 MG CAPSULE PO SCH ×4 (05:06→22:17)
[2021-10-22] MEDS: hydrOXYzine PAMOATE 25 MG CAPSULE (FP) PO SCH ×5 (05:06→22:18)
[2021-10-22] MEDS ORDERED: methaDONE HCL 10 MG TABLET PO SCH (06:00)
[2021-10-22] MEDS: PRENATAL VITAMINS W/ FOLIC ACID TABLET (FP) PO SCH (10:27)
[2021-10-22] MEDS: METHOCARBAMOL 500 MG TABLET PO PRN ×2 (10:29→16:55)
[2021-10-22] MEDS: NICOTINE 14 MG/24 HOURS TOPICAL PATCH TD SCH (10:31)
[2021-10-22] MEDS: THIAMINE HCL 100 MG TABLET (FP) PO SCH (22:17)
[2021-10-22] MEDS: MELATONIN 5 MG TABLETS PO SCH (22:17)
[2021-10-22] MEDS: risperiDONE 1 MG TABLET PO SCH (22:18)
[2021-10-23] MEDS ORDERED: methaDONE HCL 10 MG TABLET ONE (04:09)
[2021-10-23] MEDS ORDERED: methaDONE HCL 40 MG DISPERSABLE TABLET ONE (04:09)
[2021-10-23] MEDS: chlordiazePOXIDE HCL 25 MG CAPSULE PO SCH ×4 (05:11→22:28)
[2021-10-23] MEDS: hydrOXYzine PAMOATE 25 MG CAPSULE (FP) PO SCH ×5 (05:13→22:28)
[2021-10-23 09:49] LABS: BASO % 0.5 % (0-2.0); EOS % 1.7 % (0-4.5); HEMATOCRIT 45.4 % (35.4-49); HEMOGLOBIN 15.1 GM/dL (11.7-16.9); LYMPH % 34.5 % (8-40); MCH 30.4 pg (25.7-33.7); MCHC 33.2 g/dl (32.0-35.9); MEAN CELL VOLUME 91.5 fl (80-96); MEAN PLT VOLUME 8.7 fl (7.5-11.1); MONO % 8.4 % (3.8-10.2); NEUT % 54.9 % (42.8-82.8); PLATELET COUNT 162 10^3/uL (134-434); RBC 4.97 M/mm3 (4.00-5.60); RDW 14.4 % (11.9-15.9); WHITE BLOOD COUNT 7.8 K/mm3 (4.0-10.0)
[2021-10-23] MEDS: risperiDONE 1 MG TABLET PO SCH ×2 (10:21→22:28)
[2021-10-23] MEDS: PRENATAL VITAMINS W/ FOLIC ACID TABLET (FP) PO SCH (10:21)
[2021-10-23] MEDS: NICOTINE 14 MG/24 HOURS TOPICAL PATCH TD SCH (10:21)
[2021-10-23] MEDS: METHOCARBAMOL 500 MG TABLET PO PRN (10:23)
[2021-10-23 16:08] LABS: SARS-CoV-2 NAA Not Detected (Not Detected)
[2021-10-23] MEDS: THIAMINE HCL 100 MG TABLET (FP) PO SCH (22:28)
[2021-10-23] MEDS: MELATONIN 5 MG TABLETS PO SCH (22:29)
[2021-10-24] MEDS ORDERED: chlordiazePOXIDE HCL 10 MG CAPSULE PO PRN
[2021-10-24] MEDS ORDERED: methaDONE HCL 10 MG TABLET ONE (04:35)
[2021-10-24] MEDS ORDERED: methaDONE HCL 40 MG DISPERSABLE TABLET ONE (04:36)
[2021-10-24] MEDS: chlordiazePOXIDE HCL 10 MG CAPSULE PO SCH ×4 (05:20→22:21)
[2021-10-24] MEDS: hydrOXYzine PAMOATE 25 MG CAPSULE (FP) PO SCH ×5 (05:20→22:20)
[2021-10-24] MEDS: risperiDONE 1 MG TABLET PO SCH ×2 (10:20→22:20)
[2021-10-24] MEDS: PRENATAL VITAMINS W/ FOLIC ACID TABLET (FP) PO SCH (10:20)
[2021-10-24] MEDS: NICOTINE 14 MG/24 HOURS TOPICAL PATCH TD SCH (10:22)
[2021-10-24] MEDS: THIAMINE HCL 100 MG TABLET (FP) PO SCH (22:20)
[2021-10-24] MEDS: METHOCARBAMOL 500 MG TABLET PO PRN (22:20)
[2021-10-24] MEDS: MELATONIN 5 MG TABLETS PO SCH (22:20)
[2021-10-25] MEDS ORDERED: methaDONE HCL 40 MG DISPERSABLE TABLET ONE (04:22)
[2021-10-25] MEDS ORDERED: methaDONE HCL 10 MG TABLET ONE (04:22)
[2021-10-25] MEDS ORDERED: chlordiazePOXIDE HCL 10 MG CAPSULE PO SCH (05:00)
[2021-10-25] MEDS: hydrOXYzine PAMOATE 25 MG CAPSULE (FP) PO SCH (05:02)
[2021-10-25 09:08] VITALS: BP 130/83; PULSE 95; TEMP 97.8
[2021-10-26] MEDS ORDERED: chlordiazePOXIDE HCL 10 MG CAPSULE PO ONE (05:00)
== END 2021-10-25 09:06 | disposition home or self-care (01) | DRG 773 ==
LOC: YASAS 11:10 → Y3N 13:01
PROVIDERS: ADMIT Allergy & Immunology; ATTEND Surgery
PROC: HZ2ZZZZ Detoxification Services for Substance Abuse Treatment (ICD-10-PCS; principal; 2021-10-24)
DX: F11.23 Opioid dependence with withdrawal (principal); F10.230 Alcohol dependence with withdrawal, uncomplicated; F13.20 Sedative, hypnotic or anxiolytic dependence, uncomplicated; F14.20 Cocaine dependence, uncomplicated; F12.20 Cannabis dependence, uncomplicated; F17.210 Nicotine dependence, cigarettes, uncomplicated; F25.9 Schizoaffective disorder, unspecified; F19.24 Other psychoactive substance dependence with psychoactive substance-induced mood disorder; G47.00 Insomnia, unspecified; J45.909 Unspecified asthma, uncomplicated; Z86.19 Personal history of other infectious and parasitic diseases; Z91.51 Personal history of suicidal behavior; Z91.19 Patient's noncompliance with other medical treatment and regimen
CPT/HCPCS: 36415; 80053; 85025; 85027; 86780; C9803-CS; J2794; U0003; U0005